=== PATIENT | male | born 1940 | race Hispanic/Latino ===

== ENCOUNTER 2018-01-22 14:45 | Inpatient (IN) | payer MEDICARE ==
[2018-01-22 15:09] VITALS: BMI 23.0
[2018-01-22] MEDS: Albuterol-Ipratrop 3 mg / 0.5 (3 ml) UD IH SCH ×3 (16:14→20:35)
--- NOTE | 2018-01-22 16:22 | RAD ---
Date of service: 01/22/2018 HISTORY: wheezing COMPARISON: 05/24/2017 FINDINGS: LUNGS: No active pulmonary disease. PLEURA: No significant pleural effusion identified, no pneumothorax apparent. CARDIOVASCULAR: Normal. OSSEOUS STRUCTURES: No significant abnormalities. VISUALIZED UPPER ABDOMEN: Normal. OTHER FINDINGS: None. IMPRESSION: No active disease.
--- NOTE | 2018-01-22 16:48 | ED PDOC ---
Arrival/HPI - General Chief Complaint: Shortness Of Breath Time Seen by Provider: 01/22/18 15:23 Historian: Patient - History of Present Illness Narrative History of Present Illness (Text): 01/22/18 16:48 78 yo M with PMH of chronic bronchitis due to h/o prior smoking presents c/o 2 week h/o dry cough, dyspnea and wheezing despite treatment with albuterol inhaler. He states that he has not had to ever use his inhaler until the past week. Symptoms are worse with exertion. He also adds that he noticed swelling to his lower legs, which is new and he has never had before. Otherwise : (-) h/ o CHF, (-) fever, (-) sputum production, (-) chest pain, (-) diaphoresis, (-) pleuritic component, (-) ripping or tearing quality, (-) positional component, ( -) dizziness, (-) syncope, (-) nausea, (-) vomiting, (-) calf swelling/pain, (- ) recent hospitalization, (-) recent surgery, (-) neuro deficits. PMD Isael Juares Past Medical History - Cardiac Hx Pacemaker: No - Neurological Hx Paralysis: No - Hematological/Oncological Hx Blood Transfusions: No Hx Blood Transfusion Reaction: No - Musculoskeletal/Rheumatological Hx Musculoskeletal Disorders: Yes - Psychiatric Hx Emotional Abuse: No Hx Physical Abuse: No Hx Substance Use: No - Anesthesia Hx Anesthesia Reactions: No Hx Malignant Hyperthermia: No Family/Social History Family/Social History: No Known Family HX Smoking Status: Never Smoked Hx Alcohol Use: No Hx Substance Use: No Allergies/Home Meds Allergies/Adverse Reactions: Allergies erythromycin base Allergy (Verified 01/12/16 07:14) FEVER Home Medications: Home Meds Medication Instructions Recorded Confirmed Alprazolam [Xanax] 0.25 mg PO PRN PRN 01/10/16 01/12/16 Aspirin [Ecotrin] 81 mg PO DAILY 01/10/16 01/10/16 Celecoxib [CeleBREX] 200 mg PO BID 01/10/16 01/12/16 Cholecalciferol (Vitamin D3) 5,000 iu PO DAILY 01/10/16 01/12/16 [D3-5000 90 mg-5000 Iu] Escitalopram [Lexapro] 20 mg PO DAILY 01/10/16 01/12/16 Esomeprazole Magnesium [Nexium] 40 mg PO DAILY 01/10/16 01/12/16 Gabapentin [Neurontin] 600 mg PO TID 01/10/16 01/12/16 Levothyroxine [Synthroid] 25 mcg PO QAM 01/10/16 01/12/16 Metoprolol Succinate 25 mg PO DAILY 01/10/16 01/12/16 [place]-3 Acid Ethyl Esters [Lovaza] 1 gm PO BID 01/10/16 01/12/16 Oxycodone HCl [Oxycodone HCl ER] 40 mg PO BID PRN 01/10/16 01/12/16 Oxycodone HCl [Oxycontin] 10 mg PO PRN PRN 01/10/16 01/10/16 Simvastatin 10 mg PO DAILY 01/10/16 01/12/16 oxyCODONE [oxyCODONE Immediate 5 mg PO BID PRN 01/10/16 01/12/16 Release Tab] Review of Systems - Review of Systems Constitutional: absent: Fatigue, Fevers Respiratory: SOB, Cough, Wheezing Cardiovascular: absent: Chest Pain, Palpitations Gastrointestinal: absent: Abdominal Pain, Diarrhea, Vomiting Genitourinary Male: absent: Dysuria, Frequency, Hematuria Musculoskeletal: Other (+b/l LE edema). absent: Arthralgias, Back Pain, Neck Pain Skin: absent: Rash, Pruritis, Skin Lesions Neurological: absent: Headache, Dizziness Physical Exam Vital Signs Temp Pulse Resp BP Pulse Ox 01/22/18 18:40 98.8 F 70 19 131/74 99 01/22/18 15:11 19 97 01/22/18 15:09 98.7 F 68 18 135/83 96 Temperature: Afebrile Blood Pressure: Normal Pulse: Regular Respiratory Rate: Normal Appearance: Positive for: Well-Appearing, Non-Toxic, Comfortable Pain Distress: None Mental Status: Positive for: Alert and Oriented X 3 - Systems Exam Head: Present: Atraumatic, Normocephalic Pupils: Present: PERRL Extroacular Muscles: Present: EOMI Conjunctiva: Present: Normal Mouth: Present: Moist Mucous Membranes Neck: Present: Normal Range of Motion Respiratory/Chest: Present: Good Air Exchange, Wheezes (+b/l faint expiratory wheeze), Decreased Breath Sounds, Rhonchi (+rhonchi RLL). No: Respiratory Distress, Accessory Muscle Use, Rales Cardiovascular: Present: Regular Rate and Rhythm, Normal S1, S2. No: Murmurs Abdomen: No: Tenderness, Distention, Peritoneal Signs Back: Present: Normal Inspection. No: CVA Tenderness, Midline Tenderness Upper Extremity: Present: Normal Inspection, Normal ROM, NORMAL PULSES. No: Cyanosis, Edema Lower Extremity: Present: Normal Inspection, NORMAL PULSES, Normal ROM, Swelling (+1+ pitting edema), Neurovascularly Intact, Capillary Refill < 2 s. No: Edema, Tenderness, Temperature Abnormalties Neurological: Present: GCS=15, CN II-XII Intact, Speech Normal, Motor Func Grossly Intact, Normal Sensory Function, Gait Normal Skin: Present: Warm, Dry, Normal Color. No: Rashes Psychiatric: Present: Alert, Oriented x 3, Normal Insight, Normal Concentration Medical Decision Making ED Course and Treatment: 01/22/18 16:45 Plan: -- Labs -- IV fluids -- Urinalysis -- EKG -- CXR -- Duonebs x2 -- Solumedrol IV -- Reassess and disposition EKG : SB at 67 bpm, 1st degree AVB, (-) acute ST changes, as read by PA. CXR : NAD, as read by radiologist Labs reviewed : wbc normal, trop (-), bnp (-). On reevaluation, patient reports improvement of symptoms, however still c/o congestion to his chest, denies any chest pain, SOB. On exam, patient remains awake alert and oriented 3 in no acute distress. Neck is supple, lungs + decrease in BS, no wheezing, +rhonchi at the bases, cardiac regular rate and rhythm, repeat neuro exam shows no focal findings. VS P 66 O2sat : 91-96 %RA, patient desaturates to 91%RA at times and normalizes spontaneously. Diagnostic results d/w the patient. Dx of clinical pneumonia vs acute bronchitis on top of chronic bronchitis d/w the patient. Zithromax 500 mg IV and rocephin 1 g IV ordered. Considering that bnp was nl and patient has LE pitting edema, despite being active and independent at home, US dopplers b/l LE ordered. 2nd repeat troponin ordered. Case d/w Dr. Amanda agrees with plan for observation for clinical pneumonia and COPD exacerbation. Patient is requesting for his evening dose of pain medication, which he takes for chronic back pain BID at 5pm and 5 am, oxycodone 40mg ER and oxycodone 5 mg IR. Both medications ordered for the patient. US doppler b/l LE : (-) DVT, as read by PA - Lab Interpretations Lab Results: 01/22/18 16:35 01/22/18 16:35 Lab Results 01/22/18 16:35: Sodium 138, Potassium 5.0, Chloride 105, Carbon Dioxide 26, Anion Gap 12, BUN 25 H, Creatinine 1.5, Est GFR ( Amer) 55, Est GFR (Non- Af Amer) 46, Random Glucose 101, Calcium 8.7, Magnesium 2.0, Total Bilirubin 0.8 , AST 31, ALT 9, Alkaline Phosphatase 64, Lactate Dehydrogenase 443, Total Creatine Kinase 51, Troponin I < 0.01, NT-Pro-B Natriuret Pep 275, Total Protein 7.5, Albumin 4.0, Globulin 3.4, Albumin/Globulin Ratio 1.2 01/22/18 16:35: WBC 4.3 L, RBC 3.49 L, Hgb 11.3 L, Hct 33.5 L, MCV 96.0, MCH 32.4, MCHC 33.7, RDW 12.8, Plt Count 138, MPV 9.0, Gran % 47.4 L, Lymph % (Auto ) 30.4, [place] % (Auto) 8.5 H, Eos % (Auto) 13.2 H, Baso % (Auto) 0.5, Gran # 2.02 , Lymph # (Auto) 1.3, [place] # (Auto) 0.4, Eos # (Auto) 0.6, Baso # (Auto) 0.02 - RAD Interpretation Radiology Orders: 01/22/18 15:43 CHEST PORTABLE [RAD] Stat 01/22/18 17:44 DUPLEX LOWER EXTRM VEIN BILAT [US] Stat 01/22/18 19:10 CHEST W/O CONTRAST [CT] Stat - Medication Orders Current Medication Orders: Acetaminophen (Tylenol 325mg Tab) 650 mg PO Q6H PRN PRN Reason: Fever >100.4 F Albuterol/Ipratropium (Duoneb 3 Mg/0.5 Mg (3 Ml) Ud) 3 ml IH [id number] JOSÉ LUIS Albuterol/Ipratropium (Duoneb 3 Mg/0.5 Mg (3 Ml) Ud) 3 ml IH Q2H PRN PRN Reason: Shortness of Breath Alprazolam (Xanax) 0.25 mg PO BID JOSÉ LUIS PRN Reason: Protocol Stop: 01/29/18 19:16 Aspirin (Ecotrin) 81 mg PO DAILY [facility] Atorvastatin Calcium (Lipitor) 10 mg PO HS JOSÉ LUIS Escitalopram Oxalate (Lexapro) 20 mg PO DAILY JOSÉ LUIS Gabapentin (Neurontin) 600 mg PO TID JOSÉ LUIS PRN Reason: Protocol Last Admin: 01/22/18 20:01 Dose: 600 mg Ceftriaxone Sodium (Rocephin 1 Gram Ivpb) 1 gm in 100 mls @ 100 mls/hr IVPB DAILY JOSÉ LUIS PRN Reason: Protocol Azithromycin (Zithromax 500mg In Ns) 500 mg in 250 mls @ 167 mls/hr IVPB DAILY JOSÉ LUIS PRN Reason: Protocol Levothyroxine Sodium (Synthroid) 25 mcg PO ACB [facility] Methylprednisolone (Solu-Medrol) 40 mg IV Q8 [facility] Metoprolol Succinate (Toprol Xl) 25 mg PO BRK [facility] Ondansetron HCl (Zofran Inj) 4 mg IVP Q6H PRN PRN Reason: Nausea/Vomiting Oxycodone HCl (Oxycontin Extended Release Tab) 40 mg PO BID PRN PRN Reason: Pain, moderate (4-7) Oxycodone HCl (Oxycodone Immediate Release Tab) 5 mg PO BID PRN PRN Reason: Pain, severe (8-10) Pantoprazole Sodium (Protonix Ec Tab) 40 mg PO 0630 [facility] Discontinued Medications Albuterol/Ipratropium (Duoneb 3 Mg/0.5 Mg (3 Ml) Ud) 3 ml IH Q15M [facility] Stop: 01/22/18 16:16 Last Admin: 01/22/18 16:39 Dose: 3 ml Ceftriaxone Sodium (Rocephin 1 Gram Ivpb) 1 gm in 100 mls @ 200 mls/hr IVPB STAT STA PRN Reason: Protocol Stop: 01/22/18 18:09 Last Admin: 01/22/18 18:10 Dose: 200 mls/hr eMAR Start Stop Document 01/22/18 18:10 [email or web address] (Rec: 01/22/18 18:12 [email or web address] [id number]) Intravenous Solution Start Date 01/22/18 Start Time 18:12 Azithromycin (Zithromax 500mg In Ns) 500 mg in 250 mls @ 167 mls/hr IVPB STAT STA PRN Reason: Protocol Stop: 01/22/18 19:09 Last Admin: 01/22/18 20:01 Dose: 167 mls/hr eMAR Start Stop Document 01/22/18 20:01 RG (Rec: 01/22/18 20:01 RG [id number]) Intravenous Solution Start Date 01/22/18 Start Time 20:01 Methylprednisolone (Solu-Medrol) 125 mg IVP STAT STA Stop: 01/22/18 15:54 Last Admin: 01/22/18 16:39 Dose: 125 mg IVP Administration Document 01/22/18 16:39 [email or web address] (Rec: 01/22/18 16:39 [email or web address] [id number]) Charges for Administration # of IVP Administrations 1 Oxycodone HCl (Oxycodone Immediate Release Tab) 5 mg PO STAT STA Stop: 01/22/18 17:53 Last Admin: 01/22/18 18:12 Dose: 5 mg MAR Pain Assessment Document 01/22/18 18:12 [email or web address] (Rec: 01/22/18 18:13 [email or web address] [id number]) Pain Reassessment Is this a pain reassessment? No Sleep Is patient sleeping during reassessment? No Presence of Pain Presence of Pain Yes Pain Scale Used Pain Scale Used Numeric Location Pain Location Body Site Back Description Description Constant Intensity of Pain at present 7 Pain Behavior Facial Grimacing Aggravating Factors Changing Position Alleviating Factors/Management Medication Techniques Alleviating Factors Medication Oxycodone HCl (Oxycontin Extended Release Tab) 40 mg PO STAT STA Stop: 01/22/18 17:53 Last Admin: 01/22/18 18:12 Dose: 40 mg MAR Pain Assessment Document 01/22/18 18:12 [email or web address] (Rec: 01/22/18 18:13 [email or web address] [id number]) Pain Reassessment Is this a pain reassessment? No Sleep Is patient sleeping during reassessment? No Presence of Pain Presence of Pain Yes Pain Scale Used Pain Scale Used Numeric Location Pain Location Body Site Back Description Description Constant Intensity of Pain at present 7 Pain Behavior Facial Grimacing Aggravating Factors Changing Position Alleviating Factors/Management Medication Techniques Alleviating Factors Medication - PA / CONTROL OFFICER / Resident Statement / has reviewed & agrees with the documentation as recorded. Disposition/Present on Arrival - Present on Arrival Any Indicators Present on Arrival: No History of DVT/PE: No History of Uncontrolled Diabetes: No Urinary Catheter: No History of Decub. Ulcer: No History Surgical Site Infection Following: None - Disposition Have Diagnosis and Disposition been Completed?: Yes Diagnosis: COPD exacerbation, Pneumonia, Lower extremity edema Disposition: HOSPITALIZED Disposition Time: 17:30 Patient Plan: Observation Patient Problems: Current Active Problems Problem Status Onset COPD exacerbation Acute Pneumonia Acute Condition: STABLE Referrals: Rosa Isela Kirkland DO [Primary Care Provider] - Follow up with primary Forms: [employer] (Hungarian)
[2018-01-22 16:54] LABS: ALB/GLOB RATIO 1.2 (1.1-1.8); ALT/SGPT 9 U/L (7-56); AST/SGOT 31 U/L (17-59); BLOOD UREA NITROGEN 25 mg/dL (7-21); CALCIUM 8.7 mg/dL (8.4-10.5); GFR NON-AFRICAN AMERICAN 46
[2018-01-22 17:01] LABS: BASO # 0.02 K/mm3 (0.0-2.0); BASO % 0.5 % (0.0-3.0); EOS # 0.6 (0.0-0.7); EOS % 13.2 % (1.5-5.0); GRAN # 2.02 (1.4-6.5); GRAN % 47.4 % (50.0-68.0); HEMOGLOBIN 11.3 g/dL (14.0-18.0); LYMPH # 1.3 (1.2-3.4); LYMPH % 30.4 % (22.0-35.0); MEAN CORPUSCULAR HEMOGLOBIN 32.4 pg (25.0-35.0); MEAN CORPUSCULAR HGB CONC 33.7 g/dl (31.0-37.0); MONO # 0.4 (0.1-0.6); MONO % 8.5 % (1.0-6.0); RBC 3.49 10^6/uL (3.5-6.1); RED CELL DISTRIBUTION WIDTH 12.8 % (11.5-14.5); WHITE BLOOD COUNT 4.3 10^3/ul (4.5-11.0)
[2018-01-22 17:06] LABS: B-TYPE NATRIURETIC PEPTIDE 275 pg/mL (0-450); TROPONIN I < 0.01 ng/mL
[2018-01-22] MEDS ORDERED: Azithromycin 500MG/NS 250ml 500 MG/250 ML BAG IVPB STA (17:40)
[2018-01-22] MEDS ORDERED: cefTRIAXone 1 gm 1 GM/100 ML BAG IVPB STA (17:40)
[2018-01-22] MEDS ORDERED: oxyCODONE 5 mg Immediate Release Tab PO STA (17:52)
[2018-01-22] MEDS ORDERED: oxyCODONE 20 mg ER Tab (oxyCONTIN) PO STA (17:52)
[2018-01-22] MEDS ORDERED: Albuterol-Ipratrop 3 mg / 0.5 (3 ml) UD IH PRN (19:04)
[2018-01-22] MEDS ORDERED: oxyCODONE 5 mg Immediate Release Tab PO PRN (19:07)
--- NOTE | 2018-01-22 20:27 | CARD ---
APPROVED REPORT Date of service: 01/22/2018 EKG Measurement Heart [id number] <Conclusion> Sinus rhythm with 1st degree AV block with premature atrial complexes Otherwise normal ECG
[2018-01-22] MEDS: MethylPREDNISolone 40 mg Vial IV SCH (22:30)
[2018-01-23] MEDS: Albuterol-Ipratrop 3 mg / 0.5 (3 ml) UD IH SCH ×4 (01:20→20:09)
--- NOTE | 2018-01-23 01:27 | HP ---
HISTORY OF PRESENT ILLNESS: The patient is 78 years old patient of , was brought in by daughter because of increasing cough, congestion and shortness of breath, get short of breath on walking. Denies any chest pain. Complain of some wheezing and shortness of breath intermittently for 2 weeks, has been using his inhaler more than usual. No fever or chills. No hemoptysis, no hematemesis. His shortness of breath get worse on exertion. He also complained of having bilateral leg swelling. No abdominal pain. No nausea, no vomiting, no diarrhea. He does have chronic back pain and history of lung nodule. ALLERGIES: ALLERGIC TO ERYTHROMYCIN. PAST MEDICAL HISTORY: Significant for: 1. Hypertension. 2. Peptic ulcer disease. 3. Anxiety disorder. 4. Hyperlipidemia. MEDICATIONS AT HOME: He is on oxycodone 5 mg twice a day, simvastatin 10 mg daily, OxyContin 10 mg three times a day, extended-release oxycodone 40 mg daily, metoprolol 25 mg daily, levothyroxine 25 mcg daily, gabapentin 600 three times a day, omeprazole 40 mg daily, Lexapro 20 mg daily, Celebrex 200 twice a day, aspirin 81 daily and Xanax 0.25 twice a day. SOCIAL HISTORY: Lives with his daughter. History of smoking in the remote past, but quit 30 years ago. PHYSICAL EXAMINATION GENERAL: He is awake, alert and oriented, mild shortness of breath. VITAL SIGNS: He is afebrile, pulse 70, respirations 19, blood pressure 131/74. LUNGS: Bilateral few expiratory rhonchi, more at bases. HEART: S1 and S2 audible. ABDOMEN: Soft, nontender. No rebound. No guarding. NEUROLOGIC: The patient is awake, alert, oriented, communicative. LABORATORY EXAM: WBC is 4.3, hemoglobin 11.3, hematocrit 33.5, platelets of 138. Chemistry: Sodium 138, potassium 5, chloride 105, CO2 26, BUN 25, creatinine 1.5, blood sugar of 101. LFTs are within normal limits. X-ray of chest seems to be unremarkable. ASSESSMENT: 1. Active smoker with asthmatic bronchitis. 2. Bronchospasm. 3. Rule out underlying pneumonia. 4. Chronic back pain. 5. Hypertension. 6. Hyperlipidemia. PLAN: The patient will be placed in observation. We will give him IV steroids and nebulizer treatment. I will order for CT scan of the chest. I will order echocardiogram. We will follow up the patient in the a.m. Gio Amanda MD
[2018-01-23] MEDS: MethylPREDNISolone 40 mg Vial IV SCH (05:23)
[2018-01-23] MEDS: oxyCODONE 20 mg ER Tab (oxyCONTIN) PO PRN ×2 (05:24→17:37)
[2018-01-23] MEDS: Pantoprazole 40 mg EC Tab PO SCH ×2 (05:24→06:10)
[2018-01-23 07:30] LABS: ALB/GLOB RATIO 1.2 (1.1-1.8); ALBUMIN 4.1 g/dL (3.0-4.8); ALT/SGPT 8 U/L (7-56); AST/SGOT 27 U/L (17-59); BLOOD UREA NITROGEN 23 mg/dL (7-21); CALCIUM 8.7 mg/dL (8.4-10.5); GFR NON-AFRICAN AMERICAN 59
[2018-01-23 07:40] LABS: FREE T4 1.18 ng/dL (0.78-2.19)
[2018-01-23] MEDS: Metoprolol Succinate 25 mg XL Tab PO SCH (08:07)
[2018-01-23] MEDS: Budesonide 0.5 mg/2 ml Inhal Susp UD IH SCH ×2 (08:07→20:09)
[2018-01-23] MEDS: Levothyroxine 25 MCG TAB PO SCH (08:08)
--- NOTE | 2018-01-23 08:11 | CON ---
DATE: 01/23/2018 PULMONARY CONSULTATION REASON FOR PULMONARY CONSULTATION: Chronic obstructive pulmonary disease. REFERRING PHYSICIAN: Gio Amanda MD. HISTORY OF PRESENT ILLNESS: The patient is a 78-year-old male, with past medical history significant for chronic obstructive pulmonary disease, hypertension, anxiety disorder, who presents to [facility] with main complaints of increasing cough and congestion for the past 2 weeks. There is no history of shortness of breath at rest. There is a history of mild dyspnea on exertion for the past 2 weeks. There is no history of significant sputum production. There is no history of chest pain, coughing up of blood, or chest pain - made worse with deep respirations. There is no history of temperatures, chills, or infectious exposure. There is no history of night sweats, weight loss, or appetite change prior to the above events. No history of leg or calf pains. No history of syncope or diaphoresis. No history of recent travel or trauma. REVIEW OF SYSTEMS: No history of nausea, vomiting, or diarrhea. No acute urinary symptoms. No new neurologic or musculoskeletal complaints. Rest of the review of systems is negative. ALLERGIES: ERYTHROMYCIN. SOCIAL HISTORY: Positive for tobacco and negative for alcohol. FAMILY HISTORY: No inheritable diseases. HOME MEDICATIONS: Include oxycodone, metoprolol, Synthroid, Neurontin, Nexium, Lexapro, Celebrex, Ecotrin, and Xanax. PHYSICAL EXAMINATION: GENERAL: The patient appears comfortable this morning. He is not short of breath at rest. He is not using accessory muscles for breathing. VITAL SIGNS: Temperature is 98.2, pulse 82, respirations 18, blood pressure 132/84. Oxygen saturation on nasal cannula is 96%. HEENT: Normocephalic, atraumatic. No JVD. CARDIOVASCULAR: Positive S1, S2. No S3 gallop. LUNGS: Decreased breath sounds at the bases. Mild bilateral rhonchi. A few wheezes are also appreciated. EXTREMITIES: No clubbing, cyanosis, or edema. Calves are nontender to palpation. GASTROINTESTINAL: Abdomen is soft, nontender, and nondistended. Bowel sounds are positive. SKIN: No acute rash. NEUROLOGIC: Limited at the present time. PERTINENT LABORATORY DATA: CAT scan of the chest was done and reviewed. Official results are pending. There is mild scarring in the posterior aspects of both apices. There are also some small, bilateral pulmonary nodules-- the largest of which is in the right lower lobe (9 mm). There are no acute infiltrates noted. Complete metabolic profile: BUN 25. Rest of the metabolic profile is within normal limits. CBC: White count 4.3K, hemoglobin 11.3, hematocrit 33.5, platelets of 138,000. IMPRESSION: 1. Acute bronchitis. 2. Chronic obstructive pulmonary disease. 3. Bilateral pulmonary nodules. 4. Mild anemia. PLAN: The patient presents to [facility] with a 2-week history of increasing cough and congestion. The patient also states to mild dyspnea on exertion for the past 2 weeks. He was thus admitted for additional evaluation. I did review the CAT scan of the chest. As above, there are some small bilateral pulmonary nodules noted - the largest of which is in the right lower lobe (9 mm). I did discuss the CAT scan findings with the patient at length. The patient is well aware that he will need to follow up with me in the office - regarding these pulmonary nodules. On physical exam, the patient appears to be in mild bronchospasm. I will try decreasing the intravenous steroids this morning, as well as adding inhaled steroids. There is no significant alveolar-arterial gradient. Oxygen saturation on nasal cannula is 96%. The patient remains on antibiotic therapy. There are no temperatures noted. There is no leukocytosis. The patient does state to feeling much better this morning, and is clinically improved. Additional pulmonary intervention will be based on the clinical status of the patient. I will discuss the above with the attending physician. Thank you very much for this pulmonary consultation. Luis Antonio Juares MD [facility]
[2018-01-23] MEDS ORDERED: MethylPREDNISolone 40 mg Vial IVP SCH (10:00)
--- NOTE | 2018-01-23 10:07 | CT ---
Date of service: 01/22/2018 PROCEDURE: CT Chest without contrast HISTORY: Breathing problem, shortness of breath COMPARISON: Single-view chestSeptember 2017. CT thorax 02/11/2013 TECHNIQUE: Contiguous axial images were obtained through the chest without intravenous contrast enhancement. Sagittal and coronal reconstructions were performed. Radiation dose (DLP): 373.87 mGy-cm. This CT exam was performed using one or more of the following dose reduction techniques: Automated exposure control, adjustment of the mA and/or kV according to patient size, and/or use of iterative reconstruction technique. FINDINGS: LUNGS: Stable 8 mm pulmonary nodule lateral segment right lower lobe. There has been no interval change compared to the prior CT scan 02/11/2013. Stable biapical scarring and pleural thickening. Mild parabronchial thickening consistent with lower airway disease, bronchitis. MEDIASTINUM: Unremarkable thoracic aorta. No aneurysm. Normal sized heart. Main pulmonary artery unremarkable. No vascular congestion. No lymphadenopathy. PLEURA: No pleural fluid. No pneumothorax. BONES: No fracture. No destructive lesion. UPPER ABDOMEN: Grossly unremarkable. OTHER FINDINGS: None. IMPRESSION: No significant or acute findings to account for/ related to the clinical presentation. No significant interval change compared to the prior examination(s).The 8 mm pulmonary nodule identified in the right lower lobe was seen on the prior CT scan 02/11/2013. Concordant results (preliminary interpretation) provided by [facility]. Procedure Completed: 21:14. Preliminary ([facility]) Report: Dictated and Authenticated: 21:57. Final Interpretation: 10:05. January 23, 2018.
[2018-01-23] MEDS: cefTRIAXone 1 gm 1 GM/100 ML BAG IVPB SCH (10:14)
[2018-01-23] MEDS: Azithromycin 500MG/NS 250ml 500 MG/250 ML BAG IVPB SCH (11:21)
[2018-01-23] MEDS ORDERED: oxyCODONE 5 mg Immediate Release Tab PO PRN (12:46)
--- NOTE | 2018-01-23 16:33 | US ---
HISTORY: Leg pain and swelling. Evaluate for DVT PHYSICIAN(S): Pito Morales MD. TECHNIQUE: Duplex sonography and color-flow Doppler with graded compression were used to evaluate the deep venous systems of both lower extremities. FINDINGS: The visualized deep venous systems of both lower extremities are sonographically normal and compressible. Normal wave forms and augmentation are seen. There is no sonographic evidence for deep venous thrombosis in the visualized segments of both lower extremities. IMPRESSION: No sonographic evidence for deep venous thrombosis in the visualized segments of both lower extremities.
[2018-01-23] MEDS: MethylPREDNISolone 40 mg Vial IVP SCH (17:38)
--- NOTE | 2018-01-23 18:25 | PN ---
DATE: 01/23/2018 SUBJECTIVE: The patient is 78 years old, seen and examined, doing well, feels a little better, still gets short of breath on walking. No diaphoresis. No chest pain. PHYSICAL EXAMINATION: VITAL SIGNS: He is afebrile, pulse 76, respirations 20, blood pressure 164/85. LUNGS: Bilateral few expiratory rhonchi, more posteriorly. HEART: S1 and S2 audible. ABDOMEN: Soft, nontender. No rebound. No guarding. NEUROLOGIC: He is awake, alert, oriented, communicative. Moves all extremities. Complained of intractable back pain. LABORATORY DATA: His sodium 137, potassium 4.8, chloride 103, CO2 of 23, BUN 23, creatinine 1.2, blood sugar of 165. LFTs are within normal limits. TSH is 1.5, T4 of 1.18. CT scan of the chest is negative for pneumonia. He has 8 mm pulmonary nodule in the right lower lobe. ASSESSMENT: 1. Chronic obstructive pulmonary disease exacerbation. 2. Exertional shortness of breath, rule out underlying coronary ischemia. He has a history of heavy smoking for a couple of years. 3. Hypertension. 4. Intractable back pain. PLAN: I will re-adjust his pain medication. His steroid has been tapered down. We will reevaluate in the a.m. If the patient remains stable, possible discharge in the a.m. on oral steroid and antibiotic and he needs to be evaluated by remote advisor, request for Dr. Cox's evaluation has been entered. Gio Amanda MD
--- NOTE | 2018-01-23 19:37 | CARD ---
APPROVED REPORT Date of service: 01/23/2018 EXAM: Two-dimensional and M-mode echocardiogram with Doppler and color Doppler. INDICATION Dizziness and Vertigo 2D DIMENSIONS Left Atrium (2D)4.8 (1.6-4.0cm)IVSd1.0 (0.7-1.1cm) LVDd4.8 (3.9-5.9cm)PWd1.2 (0.7-1.1cm) LVDs3.2 (2.5-4.0cm)FS (%) 34.0 % LVEF (%)62.9 (>50%) M-Mode DIMENSIONS Aortic Root3.60 (2.2-3.7cm)Aortic Cusp Exc.1.60 (1.5-2.0cm) Aortic Valve AoV Peak Tgwcogup961.0cm/sAoV VTI43.9cmAO Peak GR.13mmHg LVOT Peak Lfjrmueh343.0cm/sLVOT VTI34.40cmAO Mean GR.8mmHg Mitral Valve MV E Nmtptpbv803.0cm/sMV A Jtnnbayn49.8cm/sE/A ratio1.2 TDI Lateral E' Peak V9.36cm/sMedial E' Peak V7.31cm/sE/Lateral E'11.4 E/Medial E'14.6 Pulmonary Valve PV Peak Lhnrzcbm13.9cm/sPV Peak Grad.3mmHg Tricuspid Valve TR Peak Daerdnvp711wy/sRAP GRUVMGJM14cnMbDR Peak Gr.19mmHg BALB85smQv LEFT VENTRICLE The left ventricle is normal size. There is borderline concentric left ventricular hypertrophy. Normal LV Systolic Function. Ej.Fr: 62%. RIGHT VENTRICLE The right ventricle is normal size. The right ventricular systolic function is normal. ATRIA The left atrium is moderately dilated. The right atrium size is normal. AORTIC VALVE Aortic Valve thickened due to Calcification. Opening Normal. MITRAL VALVE Mitral Valve Leaflets Thicken ed due to Calcification. Opening Normal Mitral Annulus is Calcified. Mitral regurgitation is trace. TRICUSPID VALVE The tricuspid valve is normal in structure. There is trace tricuspid regurgitation. PERICARDIAL EFFUSION There is no pericardial effusion. <Conclusion> The left ventricle is normal size. There is borderline concentric left ventricular hypertrophy. Normal LV Systolic Function. Ej.Fr: 62%. The right ventricle is normal size. The right ventricular systolic function is normal. The left atrium is moderately dilated. The right atrium size is normal. Aortic Valve thickened due to Calcification. Opening Normal. Mitral Valve Leaflets Thicken ed due to Calcification. Opening Normal Trace Mitral Regurge. Mitral Annulus is Calcified. The tricuspid valve is normal in structure. There is trace tricuspid regurgitation. RVSP 29mm Hg. There is no pericardial effusion.
[2018-01-24] MEDS: Albuterol-Ipratrop 3 mg / 0.5 (3 ml) UD IH SCH ×3 (01:40→13:20)
--- NOTE | 2018-01-24 03:37 | CON ---
DATE: 01/23/2018 SERVICE: CARDIOLOGY REASON FOR THE CONSULTATION: Shortness of breath, cardiac evaluation. BRIEF CLINICAL HISTORY: This is a 78-year-old male, with past medical history significant for back pain, arthritis, COPD, asthma, bronchitis, used to follow ____, came in with complaint of wheezing, 2 weeks of getting short of breath. Denies any history of coronary artery disease, denies any chest pain, denies any palpitations. PAST MEDICAL HISTORY: Significant for hypertension, peptic ulcer disease, anxiety disorder, back pain, and hyperlipidemia. PAST SURGICAL HISTORY: Significant for back surgery 20 to 25 years ago, used to walk with a cane. CURRENT MEDICATIONS: The patient is taking oxycodone 5 mg b.i.d., simvastatin 10 mg daily, OxyContin 10 mg p.r.n., and extended-release 40 mg twice a day, metoprolol succinate 25 mg daily, levothyroxine 25 mcg daily, gabapentin 600 mg p.o. three times a day, aspirin and Xanax. REVIEW OF SYSTEMS: As per HPI. PHYSICAL EXAMINATION VITAL SIGNS: As follows, height of the patient 6 feet 3 inches, weight of the patient 193 pounds, body mass index 28 kg/m2. Temperature afebrile, heart rate 76, blood pressure 164/85. HEENT: PERRLA. Extraocular muscles intact. NECK: Supple. No carotid bruit or thyromegaly. CHEST: Clear to auscultation. HEART: S1 and S2, regular. ABDOMEN: Soft. EXTREMITIES: Clubbing and cyanosis negative. LABORATORY DATA: Blood workup as follows: WBC 4.3, hemoglobin 11.3, hematocrit 335, and platelet count 138. Chemistry shows sodium 137, potassium 4.8, chloride 106, carbon dioxide 23, anion gap of 16, BUN 23, creatinine 1.2. Troponin 0.01. EKG shows normal sinus, no acute ST-T changes noted, first-degree AV block. IMPRESSION: Acute exacerbation of chronic obstructive pulmonary disease, diabetes, hypertension, hyperlipidemia, obesity, possible chronic obstructive pulmonary disease, anxiety disorder, is on multiple pain medication, history of chronic back pain, history of multiple surgeries in the back. Recommended to get echo to assess left ventricular function, for risk stratification suggest a stress test as an outpatient. So far no evidence of acute myocardial infarction, we will follow with you. Thank you, Dr. Amanda/ ____, for providing us the opportunity in taking care of the patient, Spencer Scales. We will get lipid profile, hemoglobin A1c as well in the morning. We will follow with you. Raghu Wilde MD
[2018-01-24] MEDS: Pantoprazole 40 mg EC Tab PO SCH (05:43)
[2018-01-24] MEDS: MethylPREDNISolone 40 mg Vial IVP SCH (05:43)
[2018-01-24] MEDS: oxyCODONE 20 mg ER Tab (oxyCONTIN) PO PRN (05:43)
[2018-01-24 07:22] LABS: GRAN # 3.4 (1.4-6.5); GRAN % 62.1 % (50.0-68.0); HEMOGLOBIN 10.9 g/dL (14.0-18.0); LYMPH # 1.5 (1.2-3.4); LYMPH % 28.2 % (22.0-35.0); MEAN CORPUSCULAR HEMOGLOBIN 32.2 pg (25.0-35.0); MEAN PLATELET VOLUME 9.1 fl (7.0-11.0); MONO # 0.5 (0.1-0.6); MONO % 9.7 % (1.0-6.0); RBC 3.38 10^6/uL (3.5-6.1); RED CELL DISTRIBUTION WIDTH 12.7 % (11.5-14.5); WHITE BLOOD COUNT 5.5 10^3/ul (4.5-11.0)
[2018-01-24 07:27] LABS: ALB/GLOB RATIO 1.1 (1.1-1.8); ALT/SGPT 10 U/L (7-56); AST/SGOT 35 U/L (17-59); BLOOD UREA NITROGEN 24 mg/dL (7-21); CALCIUM 8.7 mg/dL (8.4-10.5); GFR NON-AFRICAN AMERICAN > 60; HDL CHOLESTEROL 45 mg/dL (29-60)
--- NOTE | 2018-01-24 07:29 | PN ---
DATE: 01/24/2018 PULMONARY NOTE SUBJECTIVE: The patient appears comfortable this morning. He is not short of breath at rest. PHYSICAL EXAMINATION: VITAL SIGNS: (Last noted in the computer): Temperature is 98.2, pulse is 65, respirations 18/20, blood pressure 112/55. Oxygen saturation on nasal cannula is 98%. HEENT: Normocephalic, atraumatic. No JVD. CARDIOVASCULAR: Positive S1, S2. No S3 gallop. LUNGS: Improved breath sounds at the bases. Much less rhonchi. Much less wheezing. EXTREMITIES: No clubbing, cyanosis or edema. Calves are nontender to palpation. GI: Abdomen is soft, nontender, nondistended. Bowel sounds are positive. SKIN: No acute rash. NEUROLOGIC: Limited at the present time. IMPRESSION: 1. Acute bronchitis. 2. Chronic obstructive pulmonary disease. 3. Bilateral pulmonary nodules. 4. Mild anemia. PLAN: The patient appears comfortable this morning. He is not short of breath at rest. He does state to feeling much better overall. On physical exam, there is certainly less bronchospasm noted. In addition, the oxygen saturation on nasal cannula is now 98%. I will continue with the current nebulizer treatments and decrease the intravenous steroids this morning. The patient remains on antibiotic therapy. There are no temperatures noted. There is no leukocytosis. Input by Cardiology (Dr. Wilde) is also noted. Clinical status of the patient is certainly improved - compared to the initial presentation. The patient is advised to be out of bed as much as possible. I will discuss the above with the attending physician. Luis Antonio Juares MD [facility]
[2018-01-24 07:35] LABS: LDL CHOLESTEROL 93 mg/dL (0-129)
[2018-01-24] MEDS: Budesonide 0.5 mg/2 ml Inhal Susp UD IH SCH (07:46)
[2018-01-24 08:03] VITALS: TEMP 97.4; O2SAT 96
--- NOTE | 2018-01-24 08:36 | CP.PCM.PN ---
Subjective - Date & Time of Evaluation Date of Evaluation: 01/24/18 Time of Evaluation: 06:30 - Subjective Subjective: Awake,denies shortness of breath, no distress Reason for consultation and follow up: Cardiac evaluation of shortness of breath , history of bronchitis, current smoker Seen and examined by me and Dr. Wilde Objective - Vital Signs/Intake and Output Vital Signs (last 24 hours): Temp Pulse Resp BP Pulse Ox 97.4 F L 72 20 156/93 H 96 01/24/18 06:00 01/24/18 06:00 01/24/18 06:11 01/24/18 06:00 01/24/18 06:11 Intake and Output: 01/24/18 01/24/18 06:59 18:59 Intake Total 300 Output Total 350 Balance -50 - Medications Medications: Current Medications Acetaminophen (Tylenol 325mg Tab) 650 mg PO Q6H PRN PRN Reason: Fever >100.4 F Albuterol/Ipratropium (Duoneb 3 Mg/0.5 Mg (3 Ml) Ud) 3 ml IH [id number] [facility] Last Admin: 01/24/18 07:46 Dose: 3 ml Albuterol/Ipratropium (Duoneb 3 Mg/0.5 Mg (3 Ml) Ud) 3 ml IH Q2H PRN PRN Reason: Shortness of Breath Last Admin: 01/22/18 22:30 Dose: 3 ml Alprazolam (Xanax) 0.25 mg PO BID [facility] PRN Reason: Protocol Stop: 01/29/18 19:16 Last Admin: 01/23/18 18:42 Dose: 0.25 mg Aspirin (Ecotrin) 81 mg PO DAILY [facility] Last Admin: 01/23/18 10:13 Dose: 81 mg Atorvastatin Calcium (Lipitor) 10 mg PO HS [facility] Last Admin: 01/23/18 21:25 Dose: 10 mg Budesonide (Pulmicort Respules) 0.5 mg IH [id number] [facility] Last Admin: 01/24/18 07:46 Dose: 0.5 mg Escitalopram Oxalate (Lexapro) 20 mg PO DAILY [facility] Last Admin: 01/23/18 10:12 Dose: 20 mg Gabapentin (Neurontin) 600 mg PO TID [facility] PRN Reason: Protocol Last Admin: 01/23/18 18:41 Dose: 600 mg Ceftriaxone Sodium (Rocephin 1 Gram Ivpb) 1 gm in 100 mls @ 100 mls/hr IVPB DAILY [facility] PRN Reason: Protocol Last Admin: 01/23/18 10:14 Dose: 100 mls/hr Azithromycin (Zithromax 500mg In Ns) 500 mg in 250 mls @ 167 mls/hr IVPB DAILY [facility] PRN Reason: Protocol Last Admin: 01/23/18 11:21 Dose: 167 mls/hr Levothyroxine Sodium (Synthroid) 25 mcg PO ACB [facility] Last Admin: 01/23/18 08:08 Dose: 25 mcg Methylprednisolone (Solu-Medrol) 30 mg IVP Q12 [facility] Metoprolol Succinate (Toprol Xl) 25 mg PO BRK [facility] Last Admin: 01/23/18 08:07 Dose: 25 mg Ondansetron HCl (Zofran Inj) 4 mg IVP Q6H PRN PRN Reason: Nausea/Vomiting Oxycodone HCl (Oxycontin Extended Release Tab) 40 mg PO BID PRN PRN Reason: Pain, moderate (4-7) Last Admin: 01/24/18 05:43 Dose: 40 mg Oxycodone HCl (Oxycodone Immediate Release Tab) 5 mg PO Q6H PRN PRN Reason: Pain, severe (8-10) Last Admin: 01/23/18 21:25 Dose: 5 mg Pantoprazole Sodium (Protonix Ec Tab) 40 mg PO 0630 [facility] Last Admin: 01/24/18 05:43 Dose: 40 mg - Labs Labs: 01/24/18 06:30 01/24/18 06:30 - Constitutional Appears: No Acute Distress - Eye Exam Eye Exam: Normal appearance - ENT Exam ENT Exam: Mucous Membranes Moist - Respiratory Exam Respiratory Exam: Decreased Breath Sounds, NORMAL BREATHING PATTERN - Cardiovascular Exam Cardiovascular Exam: REGULAR RHYTHM, +S1, +S2 - GI/Abdominal Exam GI & Abdominal Exam: Soft, Normal Bowel Sounds - Extremities Exam Additional comments: 1+edema - Neurological Exam Neurological Exam: Alert, Awake, Oriented x3 - Psychiatric Exam Psychiatric exam: Normal Affect - Skin Skin Exam: Dry, Warm Assessment and Plan - Assessment and Plan (Free Text) Assessment: A 78 year old male who came in to the ER due to shortness of breath. History of COPD, bronhitis, asthma, arthritis,hypertension,diabetes, peptic ulcer disease, anxiety disorder,hyperlipidemia, back pain with back surgery 25 years ago. Exacerbation of COPD. Plan: ECHO done-LVEF 62%, Trace MR/TR Denies shortness of breath now Pulmonary on consult Cardiac status stable Controlled heart rate and blood pressure Troponin normal x 2 BNP normal No evidence of ischemia or heart failure Continue current treatment Continue current medications Out patient Stress test Will follow up Plan and treatment discussed with Dr. Wilde
[2018-01-24] MEDS: Metoprolol Succinate 25 mg XL Tab PO SCH (09:18)
[2018-01-24] MEDS: cefTRIAXone 1 gm 1 GM/100 ML BAG IVPB SCH (09:19)
[2018-01-24] MEDS: Azithromycin 500MG/NS 250ml 500 MG/250 ML BAG IVPB SCH (09:20)
[2018-01-24] MEDS: Levothyroxine 25 MCG TAB PO SCH (09:31)
[2018-01-24] MEDS ORDERED: MethylPREDNISolone 40 mg Vial IVP SCH (10:00)
[2018-01-24 11:59] VITALS: BP 147/89; PULSE 74; RESP 18
--- NOTE | 2018-01-24 15:05 | DS ---
HISTORY OF PRESENT ILLNESS: The patient is 78 years old, seen and examined, doing well. No chest pain. No shortness of breath. Cough is better. Shortness of breath is better. PHYSICAL EXAMINATION: VITAL SIGNS: The patient is afebrile, pulse 80, respirations 20, blood pressure 132/81. LUNGS: Bilateral fair airflow. No rhonchi or crackle. Diffusely decreased breath sound. HEART: S1 and S2 audible. ABDOMEN: Soft. Nontender. No rebound. No guarding. NEUROLOGICAL: The patient is awake and alert, able to communicate. LABORATORY EXAM: WBC is 5.5, hemoglobin 10.9, hematocrit 32.1, platelet of 140. Chemistry: Sodium 138, potassium 4.3, chloride 102, CO2 of 26, BUN 24, creatinine 1.1, blood sugar of 104. Thyroid profile is within normal limit. ASSESSMENT: 1. History of heavy smoking in the past. 2. Chronic obstructive pulmonary disease exacerbation. 3. Asthmatic bronchitis. 4. Chronic degenerative disk disease. 5. Anxiety disorder. 6. Hypothyroidism. PLAN: The patient is going to be discharged home today on Levaquin 500 daily. He will be given prednisone 20 mg twice a day for a week. He was given breathing treatment that is nebulizer every 6 hours Bromofed DM one teaspoon three times a day. He is advised to follow up with either me or with Dr. Waller for followup and he will have stress test done as outpatient with Dr. Cox. Gio Amanda MD
== END 2018-01-24 14:52 | disposition home or self-care (01) | DRG 192 ==
LOC: ED 14:45 → ERH 19:30 → 2RSO 23:42 → OBSVTOIN 01-23 12:44
PROVIDERS: ADMIT Internal Medicine; ATTEND Internal Medicine
PROC: 3E0F7GC Introduction of Other Therapeutic Substance into Respiratory Tract, Via Natural or Artificial Opening (ICD-10-PCS; principal; 2018-01-23)
DX: J44.1 Chronic obstructive pulmonary disease with (acute) exacerbation (principal); F17.200 Nicotine dependence, unspecified, uncomplicated; J20.9 Acute bronchitis, unspecified; J44.0 Chronic obstructive pulmonary disease with (acute) lower respiratory infection; I10 Essential (primary) hypertension; E78.5 Hyperlipidemia, unspecified; G89.29 Other chronic pain; M54.9 Dorsalgia, unspecified; E11.9 Type 2 diabetes mellitus without complications; D64.9 Anemia, unspecified; E03.9 Hypothyroidism, unspecified; F41.9 Anxiety disorder, unspecified; K27.9 Peptic ulcer, site unspecified, unspecified as acute or chronic, without hemorrhage or perforation

== ENCOUNTER 2018-08-17 17:30 | Inpatient (IN) | payer MEDICARE ==
[2018-08-17 17:32] VITALS: BMI 24.3
[2018-08-17 18:47] LABS: BASO # 0.01 K/mm3 (0.0-2.0); BASO % 0.1 % (0.0-3.0); EOS % 0.2 % (1.5-5.0); HEMOGLOBIN 11.7 g/dL (14.0-18.0); LYMPH # 0.8 (1.2-3.4); LYMPH % 4.6 % (22.0-35.0); MEAN CELL VOLUME 98.4 fl (80.0-105.0); MEAN CORPUSCULAR HEMOGLOBIN 32.1 pg (25.0-35.0); MEAN CORPUSCULAR HGB CONC 32.7 g/dl (31.0-37.0); MONO # 0.6 (0.1-0.6); MONO % 3.7 % (1.0-6.0); PLATELET COUNT 205 10^3/uL (120.0-450.0); RBC 3.64 10^6/uL (3.5-6.1); RED CELL DISTRIBUTION WIDTH 13.2 % (11.5-14.5); WHITE BLOOD COUNT 16.3 10^3/uL (4.5-11.0)
[2018-08-17] MEDS ORDERED: Albuterol-Ipratrop 3 mg / 0.5 (3 ml) UD IH STA (18:47)
--- NOTE | 2018-08-17 18:47 | ED PDOC ---
Arrival/HPI - General Chief Complaint: Weakness/Neurological Deficit Time Seen by Provider: 08/17/18 18:16 - History of Present Illness Narrative History of Present Illness (Text): 78 yr old male w/ hx of HTN, HLD, PNA, COPD not on home o2, thyroid issue and lumbar surgeries p/w fall, generalized weakness. Per daughter bedside, pt has had increased cough with phlegm over the past 2-3 days as well as generalized weakness. Pt was found by daugter this morning on the ground. Pt notes fall without any LOC, but with head impact and back impact. He denies being on any blood thinners. He notes that he has lost control of his bowels and urine, but is unclear if it was before or after the fall. He notes chronic back pain but states it is no worse than normal. He denies any loss of sensation in his legs. He denies any fever, chills or night sweats. No abdominal pain. No dark or bloody stool. No N/V. No chest pain or sob. No other complaints. Past Medical History - Infectious Disease Hx of Infectious Diseases: None - Cardiac Hx Cardiac Disorders: Yes Hx Hypertension: Yes Hx Pacemaker: No Hx Peripheral Edema: Yes - Pulmonary Hx Respiratory Disorders: Yes Hx Bronchitis: Yes Hx Chronic Obstructive Pulmonary Disease (COPD): Yes - Neurological Hx Neurological Disorder: No - HEENT Hx HEENT Disorder: Yes (reading glasses) - Renal Hx Renal Disorder: No - Endocrine/Metabolic Hx Endocrine Disorders: Yes Hx Hypothyroidism: Yes - Hematological/Oncological Hx Blood Disorders: No - Integumentary Hx Dermatological Disorder: No - Musculoskeletal/Rheumatological Hx Falls: Yes - Gastrointestinal Hx Gastrointestinal Disorders: Yes Hx Gastrointestinal Ulcer: Yes - Genitourinary/Gynecological Hx Genitourinary Disorders: No - Psychiatric Hx Psychophysiologic Disorder: No Hx Substance Use: No - Anesthesia Hx Anesthesia Reactions: No Hx Malignant Hyperthermia: No Family/Social History Family/Social History: Unknown Family HX Smoking Status: Former Smoker Hx Alcohol Use: No Hx Substance Use: No Allergies/Home Meds Allergies/Adverse Reactions: Allergies erythromycin base Allergy (Verified 08/17/18 17:32) FEVER Home Medications: Home Meds Medication Instructions Recorded Confirmed Alprazolam [Xanax] 0.25 mg PO PRN PRN 01/10/16 08/17/18 Aspirin [Ecotrin] 81 mg PO DAILY 01/10/16 08/17/18 Celecoxib [CeleBREX] 200 mg PO BID 01/10/16 08/17/18 Cholecalciferol (Vitamin D3) 5,000 iu PO DAILY 01/10/16 08/17/18 [D3-5000 90 mg-5000 Iu] Escitalopram [Lexapro] 20 mg PO DAILY 01/10/16 08/17/18 Esomeprazole Magnesium [Nexium] 40 mg PO DAILY 01/10/16 08/17/18 Gabapentin [Neurontin] 800 mg PO TID 01/10/16 08/17/18 Levothyroxine [Synthroid] 50 mcg PO QAM 01/10/16 08/17/18 Metoprolol Succinate 25 mg PO DAILY 01/10/16 08/17/18 [place]-3 Acid Ethyl Esters [Lovaza] 1 gm PO BID 01/10/16 08/17/18 Oxycodone HCl [Oxycodone HCl ER] 40 mg PO BID PRN 01/10/16 08/17/18 Simvastatin 10 mg PO DAILY 01/10/16 08/17/18 oxyCODONE [oxyCODONE Immediate 5 mg PO BID PRN 01/10/16 08/17/18 Release Tab] Prednisone [Deltasone] 20 mg PO BID 01/24/18 08/17/18 Albuterol HFA [Ventolin HFA 90 1 puff IH Q6H 08/17/18 08/17/18 mcg/actuation (8 g)] Albuterol/Ipratropium [Duoneb 3 1 vial IH QID 08/17/18 08/17/18 mg/0.5 mg (3 ml) UD] Budesonide [Pulmicort Respules] 1 vial IH BID 08/17/18 08/17/18 Review of Systems - Review of Systems Constitutional: Fatigue. absent: Weight Change, Fevers, Night Sweats Eyes: absent: Vision Changes, Eye Pain ENT: absent: Hearing Changes Respiratory: Cough, Sputum. absent: SOB, Wheezing Cardiovascular: absent: Chest Pain, Palpitations, Edema, Syncope Gastrointestinal: absent: Abdominal Pain, Stool Changes Genitourinary Male: absent: Dysuria Musculoskeletal: Back Pain. absent: Arthralgias, Neck Pain Skin: absent: Rash Neurological: absent: Headache, Focal Weakness Psychiatric: absent: Anxiety, Depression Physical Exam Temperature: Afebrile Appearance: Positive for: Well-Appearing Pain Distress: Mild Mental Status: Positive for: Alert and Oriented X 3 - Systems Exam Head: Present: Normocephalic, Contusion (L posterior scalp, 0.5cm x 0.5cm) Pupils: Present: PERRL Extroacular Muscles: Present: EOMI Conjunctiva: Present: Normal Ears: Present: Normal, NORMAL TM. No: Erythema Mouth: Present: Moist Mucous Membranes, Dry Pharnyx: Present: Normal. No: ERYTHEMA, EXUDATE, TONSILS ENLARGED Nose (External): Present: Atraumatic. No: Abrasion, Contusion, Laceration, Lesions Nose (Internal): Present: Normal Inspection, No Active Bleeding. No: Septal Hematoma, Epistaxis Neck: Present: Normal Range of Motion. No: Meningeal Signs, MIDLINE TENDERNESS Respiratory/Chest: Present: Clear to Auscultation, Good Air Exchange. No: Respiratory Distress, Accessory Muscle Use, Wheezes, Decreased Breath Sounds, Retracting, Rhonchi Cardiovascular: Present: Regular Rate and Rhythm, Murmurs, Normal S1, S2 Abdomen: Present: Normal Bowel Sounds. No: Tenderness, Distention, Peritoneal Signs Back: Present: Midline Tenderness. No: CVA Tenderness (L3 point tenderness), Paraspinal Tenderness Upper Extremity: Present: Normal Inspection, Normal ROM, NORMAL PULSES, Neurovascularly Intact. No: Cyanosis, Edema Lower Extremity: Present: Edema (1+), NORMAL PULSES, Neurovascularly Intact. No: CALF TENDERNESS Neurological: Present: GCS=15, CN II-XII Intact, Speech Normal Skin: Present: Warm, Dry. No: Rashes Psychiatric: Present: Alert, Oriented x 3 Medical Decision Making ED Course and Treatment: 78 yr old male p/w fall, weakness and cough. Fall w/ resultant x1 episode of loss of bowel and bladder function in the setting of previous back surgeries and chronic back pain. Point tenderness along L3, midline. MRI + CT ordered. No saddle anesthesia. No overlying erythema or hx of DM2 or immunosuppresion. No abdominal pain. Pt also notes diarrhea before, without recent abx, no dark ro bloody stool. No abd pain on exam. No chest tenderness palpated. Normal neuro exam w/ out slurred speech or unilateral weakness. No meningeal signs. L posterior scalp contusion, mild. Lungs clear, w/ out any wheezes. Likely PNA, but will seek MRI + CT to rule out cord compression. No signs of worsening cord compression at this time, no saddle anesthesia. EK, Sinus w/ APCs, no stemi 08/17/18 19:07 AMARJIT, WBC 16, gentle hydration given b/l le mild edema labs ordered lactic non elevated 08/17/18 19:39 BNP elevated, fluids d/c, pressure stable PPX abx ordered given WBC elevation and coughing/ weak pending MRI, CT 08/17/18 20:44 CTH on my read unremarekable appreciate consult w/ Dr. Amanda- fully endorsed- pending MRI we are to admit to her service. Oncoming physician to call w/ MRI results to Dr. Amanda signed out to Dr. Vazquez pending MRI pt in NAD, agreeable to plan - RAD Interpretation Radiology Orders: 08/17/18 18:27 HEAD W/O CONTRAST [CT] Stat 08/17/18 18:28 ABD & PELVIS W/O PO OR IV CONT [CT] Stat CERVICAL SPINE W/O CONTRAST [CT] Stat LUMBAR SPINE W/O CONTRAST [CT] Stat CHEST TWO VIEWS (PA/LAT) [RAD] Stat 08/17/18 18:33 SPINAL CANAL LUMBAR W/O CONT [MRI] Stat Disposition/Present on Arrival - Present on Arrival Any Indicators Present on Arrival: No History of DVT/PE: No History of Uncontrolled Diabetes: No Urinary Catheter: No History of Decub. Ulcer: No History Surgical Site Infection Following: None - Disposition Have Diagnosis and Disposition been Completed?: Yes Diagnosis: AMARJIT (acute kidney injury), CHF (congestive heart failure), Enuresis, Back pain Disposition: HOSPITALIZED Disposition Time: 20:43 Patient Problems: Current Active Problems Problem Status Onset AMARJIT (acute kidney injury) Acute Back pain Acute CHF (congestive heart failure) Acute Enuresis Acute Condition: STABLE
[2018-08-17 18:58] LABS: ALBUMIN 3.8 g/dL (3.0-4.8); AST/SGOT 27 U/L (17-59); BLOOD UREA NITROGEN 29 mg/dL (7-21); GFR NON-AFRICAN AMERICAN 42
[2018-08-17] MEDS ORDERED: Sodium Chloride 0.9% 500 ML IV SCH (19:00)
[2018-08-17 19:03] LABS: VENOUS BLOOD GAS BASE EXCESS 0.4 mmol/L (0.0-2.0); VENOUS BLOOD GAS PO2 28 mm/Hg (30-55)
[2018-08-17 19:11] LABS: TROPONIN I < 0.01 ng/mL
[2018-08-17 19:17] LABS: ALT/SGPT < 6 U/L (7-56)
[2018-08-17 19:42] LABS: LYMPHOCYTE 4 % (22.0-35.0); MONOCYTE 1 % (1.0-6.0); NEUTROPHIL 89 % (50.0-70.0)
[2018-08-17 19:43] LABS: ANISOCYTOSIS SLIGHT; BAND 6 % (0-2); PLATELET ESTIMATE NORMAL (NORMAL)
[2018-08-17 19:44] LABS: HYPOCHROMIA SLIGHT
[2018-08-17] MEDS ORDERED: Vancomycin 1gm in NS 250ml 1 GM/250 ML BAG IVPB STA (20:40)
--- NOTE | 2018-08-17 21:34 | ED PDOC ---
Physical Exam Vital Signs Reviewed: Yes Vital Signs Temp Pulse Resp BP Pulse Ox 08/17/18 21:10 88 19 110/66 95 08/17/18 18:44 77 18 113/63 93 L 08/17/18 17:31 99 F 74 20 91/32 L 89 L Temperature: Afebrile Blood Pressure: Normal Pulse: Regular Respiratory Rate: Normal Appearance: Positive for: Well-Appearing, Non-Toxic, Comfortable Pain Distress: None Mental Status: Positive for: Alert and Oriented X 3 Medical Decision Making ED Course and Treatment: 08/17/18 21:32: Case endorsed to me by Dr. Mak. Pending MRI and LS Spine. prior to admission. Patient had presented following a fall. Patient had undergone multiple X- Ray/ CT studies. concerned because of patient's low back pain and apparent incontinence. MRI was ordered. Patient was also treated earlier for mild congestive failure/pneumonia. Patient is currently stable. Dr. Mak had discussed case with PMD, Dr. Amanda. Patient will be admitted following the results of the MRI. CT Head without Intravenous Contrast. IMPRESSION: 1. There is generalized parenchymal atrophy. 2. Chronic periventricular and subcortical microvascular disease is seen. 3. No acute intracranial pathology. Electronically signed on Aug 17, 2018 8:57:18 PM EDT by: Valdez Green M.D., PASCALE Certified By [employer] Fellowship Trained MRI and CT Specialist CT - CERVICAL SPINE IMPRESSION: 1. Multilevel disk pathology most severe at C3-4. 2. Straightening of cervical lordosis is seen, suggesting muscular spasm. 3. Grade 1 anterolisthesis of C3 on C4. Electronically signed on Aug 17, 2018 9:01:29 PM EDT by: Valdez Green M.D., PASCALE Certified By [employer]BR [employer] Fellowship Trained MRI and CT Specialist CT - ABDOMEN AND PELVIS IMPRESSION: 1. Several calcified gallstones. 2. Sigmoid diverticulosis with no evidence of acute diverticulitis. 3. Small fat-containing umbilical hernia. 4. Prostate gland calcifications. 5. Left inguinal hernia containing fat and a small amount of fluid. 6. Right lower lobe lung nodule. Consider further evaluation with dedicated chest CT. 7. Atelectasis or scarring in the lingula. 8. Pneumonia. Electronically signed on Aug 17, 2018 9:22:57 PM EDT by: Valdez Green M.D., PASCALE Certified By [employer] Fellowship Trained MRI and CT Specialist CT - LUMBAR SPINE IMPRESSION: 1. No fracture. 2. Straightening of lumbar lordosis is seen, suggesting muscular spasm. 3. Grade 1 anterolisthesis of L4 on L5, L5 on S1. 4. Moderate levoscoliosis is seen. 5. Grade 1 anterolisthesis of L4 on L5 L5 on S1. 6. Multilevel disk disease, most severe at L4-L5 and L5-S1 Electronically signed on Aug 17, 2018 9:04:28 PM EDT by: Valdez Green M.D., PASCALE Certified By [employer] Fellowship Trained MRI and CT Specialist MR - LUMBAR SPINE IMPRESSION: 1. Grade-1 anterolisthesis of L4 on L5 and L5 on S1. 2. Patchy heterogeneous marrow pattern, likely related to marrow reconversion rather marrow replacement. 3. L5-S1, broad-based herniated disc across the disc space lateralized towards the left measures up to 5 mm. Posterior spurring and bulging. Severe left and moderate right foraminal stenosis. Canal is mildly to moderately stenotic. Severe bilateral hypertrophic facet disease and ligamentum hypertrophy is seen. Spondylolisthesis contributes. 4. L4-L5, broad-based herniated disc noted across the disc space measures up to 5 mm. Superimposed bulge and spurring are present. Lateralization towards the right. Severe right and moderate left foraminal stenosis. Canal is mildly to moderately stenotic. Bilateral hypertrophic facet disease, ligamentum hypertrophy, and spondylolisthesis contribute. 5. L3-L4, 4 mm bulging. Both foramina are mildly stenotic. Canal is moderately stenotic. Bilateral hypertrophic facet disease and ligamentum hypertrophy is seen. 6. L2-L3 and L1-L2, 2 mm bulge indents the ventral thecal sac. Electronically signed on Aug 17, 2018 10:10:47 PM EDT by: Valdez Green M.D., PASCALE Certified By [employer]BR [employer] Fellowship Trained MRI and CT Specialist 08/18/18 04:04 - Lab Interpretations Lab Results: pO2 28 mm/Hg (30-55) L 08/17/18 18:30 VBG pH 7.30 (7.32-7.43) L 08/17/18 18:30 VBG pCO2 57.0 (40-60) 08/17/18 18:30 VBG HCO3 28.0 mmol/l (21-28) 08/17/18 18:30 VBG Total CO2 29.7 mmol.L (22-28) H 08/17/18 18:30 VBG O2 Sat (Calc) 49.3 % (40-65) 08/17/18 18:30 VBG Base Excess 0.4 mmol/L (0.0-2.0) 08/17/18 18:30 VBG Potassium 4.4 mmol/L (3.6-5.2) 08/17/18 18:30 Sodium 139.0 mmol/L (132-148) 08/17/18 18:30 Chloride 104.0 mmol/L (98-107) 08/17/18 18:30 Glucose 123 mg/dl (75-110) H 08/17/18 18:30 Lactate 1.3 mmol/L (0.7-2.1) 08/17/18 18:30 FiO2 21.0 % 08/17/18 18:30 Troponin I < 0.01 ng/mL 08/17/18 18:30 NT-Pro-B Natriuret Pep 1760 pg/mL (0-450) H 08/17/18 18:30 Total Bilirubin 1.1 mg/dL (0.2-1.3) 08/17/18 18:30 AST 27 U/L (17-59) 08/17/18 18:30 ALT < 6 U/L (7-56) L 08/17/18 18:30 Alkaline Phosphatase 92 U/L (38-126) 08/17/18 18:30 Total Protein 7.8 g/dL (5.8-8.3) 08/17/18 18:30 Albumin 3.8 g/dL (3.0-4.8) 08/17/18 18:30 Globulin 4.0 gm/dL 08/17/18 18:30 Albumin/Globulin Ratio 1.0 (1.1-1.8) L 08/17/18 18:30 - RAD Interpretation Radiology Orders: 08/17/18 18:27 HEAD W/O CONTRAST [CT] Stat 08/17/18 18:28 ABD & PELVIS W/O PO OR IV CONT [CT] Stat CERVICAL SPINE W/O CONTRAST [CT] Stat LUMBAR SPINE W/O CONTRAST [CT] Stat CHEST ONE VIEW [RAD] Stat 08/17/18 18:33 SPINAL CANAL LUMBAR W/O CONT [MRI] Stat - Medication Orders Current Medication Orders: Ceftriaxone Sodium (Rocephin 1 Gram Ivpb) 1 gm in 100 mls @ 100 mls/hr IVPB DAILY JOSÉ LUIS; Protocol Vancomycin HCl (Vancomycin 1gm) 1 gm in 250 mls @ 167 mls/hr IVPB STAT STA; Protocol Stop: 08/17/18 22:09 Discontinued Medications Albuterol/Ipratropium (Duoneb 3 Mg/0.5 Mg (3 Ml) Ud) 3 ml IH STAT STA Stop: 08/17/18 18:48 Last Admin: 08/17/18 19:21 Dose: 3 ml Furosemide (Lasix) 20 mg IVP STAT STA Stop: 08/17/18 20:44 Sodium Chloride (Sodium Chloride 0.9%) 500 mls @ 50 mls/hr IV .Q10H JOSÉ LUIS Last Admin: 08/17/18 19:20 Dose: 50 mls/hr eMAR Start Stop Document 08/17/18 19:20 EB (Rec: 08/17/18 19:21 EB [id number] Intravenous Solution Start Date 08/17/18 Start Time 19:20 - Scribe Statement The provider has reviewed the documentation as recorded by the Oliveribemmanuel Mitchell Provider Scribe Attestation: All medical record entries made by the Scribe were at my direction and personally dictated by me. I have reviewed the chart and agree that the record accurately reflects my personal performance of the history, physical exam, medical decision making, and the department course for this patient. I have also personally directed, reviewed, and agree with the discharge instructions and disposition. Disposition/Present on Arrival - Present on Arrival Any Indicators Present on Arrival: No History of DVT/PE: No History of Uncontrolled Diabetes: No Urinary Catheter: No History of Decub. Ulcer: No History Surgical Site Infection Following: None - Disposition Have Diagnosis and Disposition been Completed?: Yes Diagnosis: AMARJIT (acute kidney injury), CHF (congestive heart failure), Enuresis, Back pain Disposition: HOSPITALIZED Disposition Time: 22:57 Patient Plan: Admission Patient Problems: Current Active Problems Problem Status Onset AMARJIT (acute kidney injury) Acute Back pain Acute CHF (congestive heart failure) Acute Enuresis Acute Condition: STABLE
--- NOTE | 2018-08-17 21:42 | RAD ---
HISTORY: fall COMPARISON: Chest x-ray performed 01/22/18 TECHNIQUE: Chest, one view. FINDINGS: LUNGS: Biapical pleural thickening/scarring. 9 mm right lower lobe and 6 mm left lower lobe nodular opacities. Prominent chronic appearing interstitial markings. Please note that chest x-ray has limited sensitivity for the detection of pulmonary masses. CARDIOVASCULAR: Heart size appears top normal. Ectatic aorta containing atherosclerotic calcifications. OSSEOUS STRUCTURES: Osseous demineralization. Degenerative changes. VISUALIZED UPPER ABDOMEN: Unremarkable. OTHER FINDINGS: None. IMPRESSION: Biapical pleural thickening/scarring. 9 mm right lower lobe and 6 mm left lower lobe nodular opacities. Prominent chronic appearing interstitial markings.
[2018-08-17 22:54] LABS: URINE BILIRUBIN NEGATIVE (NEGATIVE); URINE BLOOD NEGATIVE (NEGATIVE); URINE GLUCOSE (UA) NEGATIVE (NEGATIVE); URINE LEUKOCYTE ESTERASE NEGATIVE Leu/uL (NEGATIVE); URINE PROTEIN NEGATIVE mg/dL (<30 mg/dL); URINE UROBILINOGEN 0.2 E.U./dL (<1 E.U./dL)
[2018-08-17 22:58] LABS: URINE APPEARANCE CLEAR (CLEAR); URINE COLOR YELLOW (YELLOW)
[2018-08-17] MEDS ORDERED: oxyCODONE 5 mg Immediate Release Tab PO STA (23:21)
[2018-08-18] MEDS: Arformoterol 15 mcg/2 ml Inh Sol IH SCH ×2 (07:25→19:39)
[2018-08-18] MEDS: Budesonide 0.5 mg/2 ml Inhal Susp UD IH SCH ×2 (07:26→19:39)
[2018-08-18] MEDS ORDERED: oxyCODONE 20 mg ER Tab (oxyCONTIN) PO PRN (08:37)
--- NOTE | 2018-08-18 09:36 | CT ---
Date of service: 08/17/2018 PROCEDURE: CT HEAD WITHOUT CONTRAST. HISTORY: fall COMPARISON: None available TECHNIQUE: Axial computed tomography images were obtained through the head/brain without intravenous contrast. Radiation dose: Total exam DLP = 1001.61 mGy-cm. This CT exam was performed using one or more of the following dose reduction techniques: Automated exposure control, adjustment of the mA and/or kV according to patient size, and/or use of iterative reconstruction technique. FINDINGS: Streak artifact obscures evaluation of the skull base. HEMORRHAGE: No intracranial hemorrhage. BRAIN: Diffuse atrophy with prominence of the ventricles and sulci noted. No mass effect or edema. Intracranial atherosclerosis. Chronic appearing tiny lacunar-type infarcts. Scattered periventricular and subcortical white matter hypodensities, which are nonspecific, but often seen with chronic microvascular ischemic disease. Please note that MRI with diffusion imaging is more sensitive in the detection of acute ischemic event. VENTRICLES: No hydrocephalus. CALVARIUM: Unremarkable. PARANASAL SINUSES: Unremarkable as visualized. No significant inflammatory changes. MASTOID AIR CELLS: Unremarkable as visualized. No inflammatory changes. OTHER FINDINGS: None. IMPRESSION: Chronic appearing bilateral lacunar type infarcts. Nonspecific white matter changes as above. Preliminary impression was provided by [employer].
[2018-08-18] MEDS: Levothyroxine 50 MCG TAB PO SCH (09:55)
[2018-08-18] MEDS: oxyCODONE 20 mg ER Tab (oxyCONTIN) PO SCH ×2 (09:55→21:13)
[2018-08-18] MEDS: Metoprolol Succinate 25 mg XL Tab PO SCH (09:56)
[2018-08-18] MEDS: cefTRIAXone 1 gm 1 GM/100 ML BAG IVPB SCH (09:57)
--- NOTE | 2018-08-18 10:15 | CARD ---
APPROVED REPORT Date of service: 08/17/2018 EKG Measurement Heart [id number] <Conclusion> Sinus rhythm with premature atrial complexes Otherwise normal ECG
--- NOTE | 2018-08-18 11:13 | CT ---
Date of service: 08/17/2018 CT cervical spine without IV contrast Indication: fall Comparison: None available. Technique: Axial computed tomography images were obtained of the cervical spine without the use of intravenous contrast. Coronal and sagittal reformatted images were created and reviewed. This CT exam was performed using 1 or more of the following dose reduction techniques: Automated exposure control, adjustment of the MAA and/or kV according to patient size, and/or use of iterative reconstruction technique. Radiation dose: Total exam DLP = 432.11 mGy-cm. Findings: Diffuse osseous demineralization limits evaluation for acute fracture lines. Anterolisthesis of C3 on C4. Multilevel degenerative changes including osteophyte formation and intervertebral disc space narrowing. There is no evidence of acute fracture or subluxation. The prevertebral soft tissues and spinolaminar lines appear intact. The lateral masses are preserved. The dens tip is intact. There is proper alignment of the lateral masses of C1 with the C2 vertebral body. Included portions of the thyroid gland appear unremarkable. Included portions of lung apices demonstrate biapical consolidations/pleural thickening. Impression: Diffuse osseous demineralization. Multilevel degenerative changes. Grade 1 anterolisthesis of C3 on C4. No evidence of acute displaced fracture. Biapical pleural thickening/consolidations. Preliminary impression was provided by [employer].
--- NOTE | 2018-08-18 11:28 | CT ---
PROCEDURE: CT Abdomen and Pelvis without Oral or IV contrast. HISTORY: fall COMPARISON: CT chest without contrast performed 01/22/18, CT chest without contrast performed 08/16/12 TECHNIQUE: Contiguous axial images of the abdomen and pelvis. No oral or IV contrast administered. Coronal and Sagittal reformats generated and reviewed. Radiation dose: Total exam DLP = 508.53 mGy-cm. This CT exam was performed using one or more of the following dose reduction techniques: Automated exposure control, adjustment of the mA and/or kV according to patient size, and/or use of iterative reconstruction technique. FINDINGS: There is limited evaluation of the solid organs without the administration of IV contrast. LOWER THORAX: Approximately 9 mm right lower lobe nodule. Patchy bilateral lower lobe opacities appear consistent with pneumonia. No significant pleural effusion or definite pneumothorax. LIVER: Unremarkable. GALLBLADDER AND BILE DUCTS: Cholelithiasis. PANCREAS: Fatty atrophy of the pancreas. SPLEEN: Unremarkable. ADRENALS: Unremarkable. KIDNEYS AND URETERS: No hydronephrosis or obstructing renal calculus. BLADDER: The urinary bladder appears unremarkable. REPRODUCTIVE: Prostate gland calcifications. APPENDIX: No secondary signs of acute appendicitis. BOWEL: The stomach is nondistended. Lack of oral contrast limits evaluation for bowel pathology. The bowel loops appear within normal limits of caliber without evidence of intestinal obstruction. Diverticulosis without CT evidence of acute diverticulitis. PERITONEUM: No significant free fluid. No definite free air. LYMPH NODES: No bulky lymphadenopathy identified. VASCULATURE: Atherosclerotic calcifications of the aorta and branches. No aortic aneurysm. BONES: Diffuse osseous demineralization. Extensive degenerative changes. Severe scoliosis. OTHER FINDINGS: Tiny fat containing umbilical hernia. Fat containing left inguinal hernia. IMPRESSION: Approximately 9 mm right lower lobe nodule, stable when remeasured in similar position. Patchy bilateral lower lobe opacities appear consistent with pneumonia. Cholelithiasis. Diverticulosis without CT evidence of acute diverticulitis. Tiny fat containing umbilical hernia. Fat containing left inguinal hernia. Additional findings as above. Preliminary impression was provided by [employer].
--- NOTE | 2018-08-18 11:36 | CT ---
Date of service: 08/17/2018 CT lumbar spine without IV contrast Indication: fall, one episode of loss of bowel / bladder fx Comparison: CT abdomen and pelvis without contrast performed 08/17/18 Technique: Noncontrast axial images of the lumbar spine were provided. Sagittal and coronal reformatted images were generated and reviewed. This CT exam was performed using 1 or more of the following dose reduction techniques: Automated exposure control, adjustment of the MAA and/or kV according to patient size, and/or use of iterative reconstruction technique. Total exam DLP: 1875.46 MGy-cm Findings: Osseous demineralization limits evaluation for acute fracture lines. Multilevel degenerative changes including intervertebral disc space narrowing and vacuum disc phenomenon most prominent at L4-L5 and L5-S1. Grade 1 anterolisthesis of L4 on L5 and L5 on S1. Scoliosis. No acute fracture identified. Paraspinal soft tissues appear unremarkable. Limited visualization of the intra-abdominal and intrapelvic contents; please refer to report from CT of the abdomen and pelvis performed without contrast the same day. Impression: Diffuse osseous demineralization. Multilevel degenerative changes most severe at L4-L5 and L5-S1 as above. No acute fracture identified. Preliminary impression was provided by [employer].
--- NOTE | 2018-08-18 12:16 | MRI ---
Date of service: 08/17/2018 PROCEDURE: MR LUMBAR SPINE WITHOUT CONTRAST HISTORY: fall COMPARISON: Lumbar spine CT without contrast 08/17/2018. TECHNIQUE: Multiecho multiplanar sequences were performed through the lumbar spine without the use of intravenous contrast. FINDINGS: Normal lumbar lordosis is interrupted by grade 1 spondylolistheses of L4 anterior to L5 and L5 anterior S1. No spondylolysis encountered and therefore this is a function of degenerative facet arthropathy, which appears advanced. A moderate levoscoliotic lumbar spinal deformity is also present. Vertebral body heights are preserved. Gross Modic type 2 endplate degenerative changes are seen at L4-5 with type 1 changes at L5-S1. Nonspecific heterogeneous marrow signal changes identified diffusely throughout the lumbar spine. Conus medullaris unremarkable at the level of L1. Paraspinal soft tissues are unremarkable. T12-L1: No disc herniation, spinal canal stenosis or neural foraminal narrowing. L1-2: No disc herniation, spinal canal stenosis or neural foraminal narrowing. L2-3: No disc herniation, spinal canal stenosis or neural foraminal narrowing. L3-4: No disc herniation. A circumferential disc bulge is appreciate with posterior component flattening the ventral thecal sac minimally. No significant stenosis of the central canal. No left neural foraminal stenosis. Mild right neural foraminal stenosis appreciated. Asymmetry is on the basis of scoliotic deformity. L4-5: No disc herniation. Spondylolisthesis and gross facet arthropathy are identified causing mild central canal stenosis, severe right and borderline left neural foraminal stenosis. Asymmetry is on the basis of scoliotic deformity. L5-S1: No disc herniation. Gross facet joint degenerative arthropathy is seen greater the left and right sides with spondylolisthesis and disc osteophyte complex occurring concomitantly resulting in obliteration left lateral recess and otherwise borderline central canal stenosis, moderate to severe right neural foraminal stenosis and severely stenotic if not occluded left neural foramen. OTHER FINDINGS: None. IMPRESSION: 1. No acute fracture or spondylolisthesis appreciated. Grade 1 spondylolisthesis ease of L4-5 and L5-S1 are identified as well as moderate levoscoliotic lumbar spinal deformity creating asymmetry in posterior element degenerative findings resulting in variable degenerative changes, the worst of which is described below. 2. Mild L4-5 central canal stenosis with severe right and borderline left neural foraminal stenosis. Gross left L5-S1 neural foraminal stenosis a [id number] right neural foraminal stenosis and borderline generalized central canal stenosis obliteration of left lateral recess. 3. Nonspecific heterogeneous marrow signal changes throughout the lumbar spine. Preliminary report provided by [employer], 08/16/2018, 10:10 p.m..
--- NOTE | 2018-08-18 14:29 | CT ---
Date of service: 08/18/2018 CT chest without IV contrast Indication: sob Technique: Contiguous axial images were obtained through the chest without intravenous contrast enhancement. Sagittal and coronal reconstructions were generated and reviewed. This CT exam was performed using 1 or more of the following dose reduction techniques: Automated exposure control, adjustment of the MAA and/or kV according to patient size, and/or use of iterative reconstruction technique. Radiation dose (DLP): 419.79 MGy-cm. Comparison: Chest CT without contrast performed 01/22/18, chest x-ray performed 08/17/18, CT abdomen and pelvis without contrast performed 08/17/18 Findings: Visualized portions of the inferior thyroid gland appear unremarkable. The unenhanced mediastinal and hilar vascular structures appears grossly unremarkable. Heart size appears within normal limits. Coronary artery calcifications. Prominent sub cm mediastinal/prevascular adenopathy, nonspecific. Right greater than left apical scarring/pleural thickening and atelectasis. Bilateral lower lobe patchy nodular and ground-glass consolidations consistent with pneumonia. Dependent atelectasis bilaterally. Small bilateral pleural effusions. 9 mm nodule at the right lower lobe now obscured by consolidation. No pneumothorax. Limited visualization of the noncontrast upper abdomen: Fatty atrophy of the pancreas. Cholelithiasis partially imaged. Osseous demineralization. Kyphosis. Degenerative changes. Scoliosis. Impression: Right greater than left apical scarring/pleural thickening and atelectasis. Bilateral lower lobe patchy nodular and ground-glass consolidations consistent with pneumonia. Dependent atelectasis bilaterally. Recommend chest CT follow-up upon completion of therapy to demonstrate resolution of nodular pattern. Small bilateral pleural effusions. 9 mm nodule at the right lower lobe now obscured by consolidation. Additional findings as above.
[2018-08-18] MEDS: oxyCODONE 5 mg Immediate Release Tab PO PRN (18:19)
--- NOTE | 2018-08-18 21:29 | HP ---
DATE OF EXAM: 08/18/2018 HISTORY OF PRESENT ILLNESS: The patient is 78 years old. According to the daughter lately he has been increasingly weak, has difficulty walking. He has been incontinent of urine and bowel lately. Although he has chronic degenerative disc disease and difficulty walking, but he was handling somehow, but the patient's daughter who is by the bedside stated yesterday when she went out and came back she found him on the floor in feces and urine. She shows that she got concerned and brought him to emergency room for further management and to get checked out. She states that his appetite has been poor and he has been sleeping a lot lately. There is no history of fever or chills. No history of nausea or vomiting. However his appetite is not as before. PAST MEDICAL HISTORY: Significant for; 1. Severe degenerative disc disease. 2. History of peptic ulcer disease. 3. Anxiety disorder. 4. Hyperlipidemia. 5. Hypertension. 6. He had an upper endoscopy done by Dr. Jeffrey on 07/2015. He was found to have gastritis. ALLERGIES: HE IS ALLERGIC TO ERYTHROMYCIN. HOME MEDICATIONS: He is on MS Contin 40 mg twice a day, Xanax 0.25 mg t.i.d. p.r.n., prednisone 20 mg twice a day and aspirin 81 mg daily. He is on Pulmicort. He is on gabapentin 300 mg three times a day, metoprolol 25 mg daily, levothyroxine 50 mcg daily, Nexium 40 mg daily, Lexapro 20 mg daily, Celebrex 200 mg twice a day. SOCIAL HISTORY: He lives with his daughter. Used to be a smoker from teenage up to 40's and he quit more than 15 years ago. Denies alcohol use, however he is on prescribed narcotics. PHYSICAL EXAMINATION: GENERAL: He is awake and alert, complaint of generalized pain, difficulty moving even in bed. VITAL SIGNS: He is afebrile. Pulse 81, respiration 20 and blood pressure 147/78. LUNGS: Bilateral diffusely decreased breath sounds. More at apices. HEART: S1 and S2, audible. ABDOMEN: Soft and nontender. No rebound. No guarding. NEUROLOGICAL: The patient is awake, alert and able to communicate. He has difficulty moving lower extremity because of pain, difficulty rolling in bed because of back pain. EXTREMITIES: Bilateral legs no edema. LABORATORY DATA: WBC 16.3, hemoglobin 11.7, hematocrit 35.8 and platelet of 205. Chemistry; sodium 140, potassium 4.5, chloride 104, CO2 of 25, BUN 29, creatinine 1.6, blood sugar of 115, CPK 30 and BNP 1760. Urinalysis is unremarkable. He had MRI of lumbar spine done that shows severe degenerative disc disease and no acute fracture, seen grade 1 spondylolisthesis as well as moderate levoscoliosis and spinal stenosis appreciated. He had x-ray of chest done that shows by biapical pleural thickening, a 9 mm right lower lobe and 3.6 mm left lower lobe nodule and interstitial markings. CT scan of the head shows chronic appearing bilateral lacunar type infarcts, nonspecific white matter changes. ASSESSMENT: 1. Status post fall. 2. Generalized weakness, difficulty walking. 3. Interstitial lung disease. 4. Renal insufficiency. 5. Severe degenerative disc disease with spinal stenosis. PLAN: The patient has been started on IV antibiotic and IV steroid. I will order for a CT scan of the chest, order for continue him on IV fluid. I will request Dr. Jeffrey to evaluate for his fecal incontinence. We will follow up in a.m. Gio Amanda MD
[2018-08-19 06:40] LABS: BASO # 0.01 K/mm3 (0.0-2.0); BASO % 0.1 % (0.0-3.0); EOS % 0.2 % (1.5-5.0); HEMOGLOBIN 10.2 g/dL (14.0-18.0); LYMPH # 1.2 (1.2-3.4); MEAN CELL VOLUME 97.5 fl (80.0-105.0); MEAN CORPUSCULAR HEMOGLOBIN 31.6 pg (25.0-35.0); MEAN CORPUSCULAR HGB CONC 32.4 g/dl (31.0-37.0); MEAN PLATELET VOLUME 8.8 fl (7.0-11.0); MONO # 0.9 (0.1-0.6); MONO % 9.9 % (1.0-6.0); RBC 3.23 10^6/uL (3.5-6.1); RED CELL DISTRIBUTION WIDTH 13.1 % (11.5-14.5); WHITE BLOOD COUNT 9.4 10^3/uL (4.5-11.0)
[2018-08-19 07:15] LABS: ALB/GLOB RATIO 0.8 (1.1-1.8); ALBUMIN 3.1 g/dL (3.0-4.8); ALT/SGPT < 6 U/L (7-56); AST/SGOT 22 U/L (17-59); BLOOD UREA NITROGEN 23 mg/dL (7-21); CALCIUM 8.5 mg/dL (8.4-10.5); GFR NON-AFRICAN AMERICAN > 60
[2018-08-19] MEDS: Arformoterol 15 mcg/2 ml Inh Sol IH SCH ×2 (07:39→20:25)
[2018-08-19] MEDS: Budesonide 0.5 mg/2 ml Inhal Susp UD IH SCH ×2 (07:39→20:25)
[2018-08-19] MEDS: Levothyroxine 50 MCG TAB PO SCH (09:01)
[2018-08-19] MEDS: cefTRIAXone 1 gm 1 GM/100 ML BAG IVPB SCH (09:49)
[2018-08-19] MEDS: Metoprolol Succinate 25 mg XL Tab PO SCH (09:51)
[2018-08-19] MEDS: oxyCODONE 20 mg ER Tab (oxyCONTIN) PO SCH ×2 (09:52→21:29)
--- NOTE | 2018-08-19 13:26 | CON ---
DATE OF CONSULTATION: 08/19/2018 GASTROENTEROLOGY CONSULTATION REQUESTING PHYSICIAN: Dr. Amanda. REASON FOR CONSULTATION:/HISTORY OF PRESENT ILLNESS: I have been asked to see this 78-year-old male, well-known to me with multiple medical problems including severe degenerative disk disease, anxiety disorder, peptic ulcer disease, who was admitted to the hospital due to increasing weakness and difficulty walking. I have been asked to see this patient for fecal incontinence. The patient states that he has also been incontinent of urine. The patient was brought to the emergency room by the family for generalized weakness. He states that he has both fecal and urinary incontinence. The incontinence is intermittent and sporadic and not on a regular basis. He denies any new weakness in his lower extremities. He denies any paresthesias in his feet. PAST MEDICAL HISTORY: Notable for degenerative disk disease of his lower spine, peptic ulcer disease, hyperlipidemia, hypertension, anxiety. SOCIAL HISTORY: He smoked up to a pack of cigarettes per day for 20 years. He quit 15 years ago. He denies alcohol use. He is on chronic pain medications. FAMILY HISTORY: Noncontributory. REVIEW OF SYSTEMS: Fourteen-point review of systems is notable for generalized weakness, fecal and urinary incontinence. MEDICATIONS: Medications at home include MS Contin, Xanax, prednisone, aspirin, Pulmicort, gabapentin, metoprolol, Levoxyl, Nexium, Lexapro and Celebrex. PHYSICAL EXAMINATION: GENERAL: Elderly male, lying in bed, in no acute distress. VITAL SIGNS: Reveal a temperature of 97.9, blood pressure 144/79, heart rate is 77. HEENT: Reveals sclerae to be white. Conjunctivae pink. NECK: Supple. CHEST: Reveals lungs to be clear. HEART: Reveals a regular rate and rhythm. ABDOMEN: Soft, nontender. No mass. EXTREMITIES: Show no edema. RECTAL: Shows good anal sphincter tone. LABORATORY DATA: Revealed a white blood cell count of 9.4, hemoglobin 10.2. Chemistries reveal BUN 23, creatinine 1. IMPRESSION: A 78-year-old male, admitted to the hospital with generalized weakness, inability to walk with both fecal and urinary incontinence. His incontinence may be related to his severe degenerative disk disease. It is intermittent and sporadic. RECOMMENDATIONS: Neurology evaluation to assess whether the fecal and urinary incontinence is secondary to neurogenic causes. José Miguel Jeffrey MD [facility] # [id number]
--- NOTE | 2018-08-19 17:55 | CON ---
DATE: 08/19/2018 CHIEF COMPLAINT: Frequent falls and low back pain. HISTORY OF PRESENT ILLNESS: This is a 78-year-old man with past medical history of anxiety disorder, hypertension, hyperlipidemia, history of gastritis with chronic low back pain and chronic lumbosacral surgery in the past. Has severe degenerative disc disease in the lumbosacral area, seen on his MRI of the lumbosacral spine. His MRI of the lumbosacral spine showed grade 1 spondylolisthesis on L4-L5 and L5-S1 with moderate levoscoliotic lumbar spinal deformity, in addition he has mild L4-L5 central canal stenosis and gross left L5-S1 neuroforaminal stenosis, mild to moderate on the right, and borderline on the left, in addition to severe foraminal stenosis on the L4-L5 level as well. He is on gabapentin 800 mg p.o. b.i.d. for neuropathic relief given for his back pain and also takes chronic opiates which can keep him constipated. He will benefit from physical therapy likely subacute rehab from our standpoint. He is very deconditioned. PAST MEDICAL HISTORY: As above. FAMILY HISTORY: Noncontributory. SOCIAL HISTORY: No illicit drug use, smoking, or EtOH abuse. REVIEW OF SYSTEMS: A 14-point review of systems is negative except as per the HPI. MEDICATIONS: Reviewed by nurse's reconciliation sheet. ALLERGIES: ALLERGY TO ERYTHROMYCIN BASE. PHYSICAL EXAMINATION: VITAL SIGNS: Temperature afebrile, pulse of 81, blood pressure of 147/70, and respiratory rate 20. HEART: S1 and S2. Normal rate and rhythm. No murmurs, rubs, or gallops. LUNGS: Decreased breath sounds bilaterally. ABDOMEN: Soft, nontender, and nondistended. Bowel sounds present. EXTREMITIES: No clubbing. No cyanosis. Has trace pedal edema bilaterally. NEUROLOGIC: The patient is alert and oriented to person, place, and year. Recall after 5 minutes is 0/3. Poor attention span. Slow thought process. Cranial nerves II through XII are intact. Motor exam; slightly increased tone throughout. Moves all extremities equally. Has a mild resting tremor with the right hand compared to the left. No fasciculations seen on the tongue. Coordination; [id number] intact. No dysmetria noted. Gait is deferred for now. Moves all extremities equally. Toes are downgoing bilaterally. LABORATORY DATA: Sodium is 140, potassium 4.5, chloride 104, carbon dioxide 25, BUN of 29, creatinine 1.6, and random glucose 115. ASSESSMENT AND PLAN: This is a 78-year-old man with a history of severe degenerative disc disease of the lumbosacral area, especially at L4-L5 and L5-S1; history of epileptic seizure, anxiety disorder, on Lexapro, hyperlipidemia and hypertension, came here for falls, increased weakness, and generalized deconditioning state and was found incontinent of his urine and bowel and was found covered in his feces; therefore, came in to the Hospital for further evaluation. He was also found to be dehydrated, he is chronically deconditioned, has elevated BNP. He is on Neurontin 800 mg p.o. three times a day for underlying neuropathic relief as well as chronic opiate therapy for his low back pain. At this time, we will recommend; 1. Physical and occupational therapy, subacute rehab for underlying low back pain, lumbosacral radiculopathy, and poor gait imbalance. 2. Avoid overuse of opiates which can make him constipated and affect his mentation as well. 3. Recommend go from gabapentin 800 p.o. three times a day to 800 twice a day triggering for neuropathic relief. 4. Continue with doxycycline in regard to his bilateral pneumonias and monitor his electrolytes and correct accordingly. Gerardo Jessica MD
--- NOTE | 2018-08-20 01:09 | CON ---
DATE: 08/19/2018 CONSULT SERVICE: Cardiology REASON FOR CONSULTATION: Cardiac evaluation, rule out arrhythmia. BRIEF CLINICAL HISTORY: This is a 78-year-old male with past medical history significant for peptic ulcer disease, anxiety disorder, hypertension, hyperlipidemia, history of degenerative joint disease, and disc disease who was found yesterday, brought by the daughter because lately he is having difficulty in walking. Yesterday, found to be on the floor with feces and urine, and very unstable gait. Patient denies any chest pain. Denies any shortness of breath. Denies any palpitations. PAST MEDICAL HISTORY: Significant for degenerative disc joint disease, history of peptic ulcer disease, anxiety disorder, hypertension, hyperlipidemia, history of gastric ulcer status post endoscopy 2 to 3 years ago found to be gastritis. Significant for COPD, asthma, and arthritis as well. Denies any history of documented coronary artery disease, though patient himself denies any history of coronary artery disease. PAST SURGICAL HISTORY: Significant for endoscopy and colonoscopy by Dr. Jeffrey, found to be mild gastritis. SOCIAL HISTORY: Denies any smoking. Denies any history of alcohol abuse. Lives with his daughter. Patient is an ex-smoker, quit 30 years ago. PREVIOUS CARDIAC WORKUP FOLLOWS: Patient had echocardiography done on 01/23/2018 that revealed ejection fraction of 60%, left atrium moderately dilated, right ventricular systolic function is normal, right atrium is normal, aortic valve thickened due to calcification, but opens normal, leaflet also thickened of mitral valve, trace mitral regurgitation, mitral annulus calcification, tricuspid valve structure is normal, trace tricuspid regurgitation, RV systolic pressure is 29. REVIEW OF SYSTEMS: As per HPI. Denies any history of documented coronary artery disease, but history of COPD, asthma, and bronchitis. PHYSICAL EXAMINATION: As follows; GENERAL: Height of the patient 6 feet, weight of the patient 179 pounds, body mass index 24.3 kg/m2. VITAL SIGNS: Temperature afebrile, heart rate 77, blood pressure 144/79. HEENT: PERRLA. Extraocular muscles intact. NECK: Supple. No carotid bruit or thyromegaly. CHEST: Clear to auscultation. HEART: S1 and S2, regular. ABDOMEN: Soft. EXTREMITIES: Clubbing and cyanosis negative. LABORATORY DATA: Blood workup as follows; WBC 9.4, hemoglobin 10, hematocrit 31.5, and platelet count 187. Chemistry shows sodium 130, potassium 3.9, chloride 103, CO2 of 26, anion gap of 4, BUN 23, creatinine 1. IMPRESSION: A 78-year-old male with past medical history significant for chronic obstructive pulmonary disease, asthma, bronchitis, hypertension, unsteady gait, found yesterday on the floor, brought here because of unsteady gait and loss of consciousness. Denies any syncope or presyncope. Denies any dizziness. Patient's last echocardiogram in 01/2018 shows preserved left ventricular function. No significant atrium, trace tricuspid regurgitation. RECOMMENDATIONS: We will get lipid profile, TSH, and hemoglobin A1c. We will also check orthostatic hypotension, monitoring in telemetry. Will go to rehab. We will follow with you. Thank you Dr. Amanda for providing us the opportunity in taking care of the patient, Spencer Scales. Raghu Wilde MD
--- NOTE | 2018-08-20 03:34 | PN ---
DATE: 08/19/2018 SUBJECTIVE: The patient is a 78-year-old, seen and examined, better. He seems to be more alert, eating well. Awaiting for physical therapy to evaluate him. PHYSICAL EXAMINATION: VITAL SIGNS: He is afebrile, pulse 80, respirations 18, blood pressure 150/80. LUNGS: Bilateral fair airflow. No rhonchi or crackle. HEART: S1 and S2 audible. ABDOMEN: Soft, nontender. No rebound. No guarding. NEUROLOGICAL: He is awake and alert, able to communicate. LABORATORY DATA: WBC is 9.4, hemoglobin is 10, hematocrit is 31, platelets are 187. Chemistries; sodium 138, potassium 3.9, chloride 103, CO2 of 27, BUN 23, creatinine 1.0, blood sugar of 92. Blood cultures are negative. CT scan of the chest shows multifocal pneumonia. ASSESSMENT: 1. Status post fall. 2. Deconditioning, difficulty walking. 3. Degenerative disc disease from L4 to S1 with levoscoliosis and spinal stenosis. PLAN: We will continue the patient on Brovana. He is on doxycycline. Continue him on aspirin. He will maintain on Lipitor and Lexapro. According to ID recommendation, we will cut down his gabapentin. According to Neurology recommendation, cut down Neurontin to 800 twice a day. Continue analgesics. He is on Rocephin and doxycycline and will continue that. Physical therapy evaluation and treatment. Gio Amanda MD
[2018-08-20] MEDS: Levothyroxine 50 MCG TAB PO SCH (06:36)
[2018-08-20 06:56] LABS: EOS % 0.3 % (1.5-5.0); HEMOGLOBIN 10.3 g/dL (14.0-18.0); LYMPH # 0.8 (1.2-3.4); LYMPH % 9.5 % (22.0-35.0); MEAN CELL VOLUME 97.5 fl (80.0-105.0); MEAN CORPUSCULAR HEMOGLOBIN 31.7 pg (25.0-35.0); MEAN CORPUSCULAR HGB CONC 32.5 g/dl (31.0-37.0); MEAN PLATELET VOLUME 8.5 fl (7.0-11.0); MONO # 0.8 (0.1-0.6); MONO % 9.5 % (1.0-6.0); RBC 3.25 10^6/uL (3.5-6.1); RED CELL DISTRIBUTION WIDTH 12.8 % (11.5-14.5); WHITE BLOOD COUNT 8.6 10^3/uL (4.5-11.0)
[2018-08-20 07:18] LABS: ALB/GLOB RATIO 0.9 (1.1-1.8); ALBUMIN 3.3 g/dL (3.0-4.8); ALT/SGPT 7 U/L (7-56); AST/SGOT 30 U/L (17-59); BLOOD UREA NITROGEN 23 mg/dL (7-21); CALCIUM 8.6 mg/dL (8.4-10.5); GFR NON-AFRICAN AMERICAN > 60; HDL CHOLESTEROL 22 mg/dL (29-60)
[2018-08-20 07:19] LABS: LDL CHOLESTEROL 89 mg/dL (0-129)
[2018-08-20] MEDS: Arformoterol 15 mcg/2 ml Inh Sol IH SCH (07:19)
[2018-08-20] MEDS: Budesonide 0.5 mg/2 ml Inhal Susp UD IH SCH ×2 (07:19→19:30)
[2018-08-20] MEDS: oxyCODONE 20 mg ER Tab (oxyCONTIN) PO SCH ×2 (10:28→21:33)
[2018-08-20] MEDS: cefTRIAXone 1 gm 1 GM/100 ML BAG IVPB SCH (11:13)
--- NOTE | 2018-08-20 13:11 | PN ---
DATE: 08/20/2018 REASON FOR CONSULTATION: Followup cardiac evaluation, rule out arrhythmia. SUBJECTIVE: The patient denies chest pain, shortness of breath, or any palpitation. OBJECTIVE: GENERAL: Not in apparent distress. VITAL SIGNS: Temperature afebrile, heart rate 80, blood pressure 157/75. HEENT: PERRLA, extraocular muscles intact. NECK: Supple, no carotid bruit or thyromegaly. CHEST: Clear to auscultation. HEART: S1, S2 regular. ABDOMEN: Soft. EXTREMITIES: Clubbing and cyanosis negative. LABORATORY DATA: Blood workup as follow: WBC 8.6, hemoglobin 10.2, hematocrit 31.7, platelet count 187. Chemistry shows sodium 139, potassium 4, chloride 105, CO2 of 28, anion gap of 10, BUN 23, and creatinine 0.9. The patient's last echocardiography done on 01/23/2018 revealed ejection 50%, left atrial moderately dilated, LV systolic function is normal, right atrium is normal. Aortic valve thickened, calcification, opens well, trace mitral regurgitation, mild annulus calcification, tricuspid structures are normal, trace tricuspid regurgitation, RV systolic pressure is 29. ASSESSMENT AND PLAN: This is a 78-year-old male with past medical history significant for chronic obstructive pulmonary disease, asthma, bronchitis, hypertension, unsteady gait, found yesterday on the floor, fell down. The patient is getting rehab. This morning while the patient was getting rehab, heart rate went transiently to 140 and then back to normal. RECOMMENDATION: We will increase beta tonja, going back into SVT. We will discontinue metoprolol succinate and increase to 50 b.i.d., first dose of 25 now again and since the patient got metoprolol succinate 25 in the morning, we will start 50 b.i.d. metoprolol tartrate and first dose at 6 p.m.. We will follow with you. Thank you Dr. Amanda for providing us the opportunity in taking care of the patient, Spencer Scales. Raghu Wilde MD
[2018-08-20 16:33] VITALS: RESP 18
[2018-08-20] MEDS: oxyCODONE 5 mg Immediate Release Tab PO PRN (17:42)
--- NOTE | 2018-08-20 17:52 | PN ---
DATE: 08/20/2018 SUBJECTIVE: The patient is 78 years old, seen and examined, doing much better, much more awake and alert, eating and tolerating. PHYSICAL EXAMINATION VITAL SIGNS: He is afebrile. Pulse 80, respirations 20, blood pressure 157/75. LUNGS: Bilateral fair airflow. No rhonchi or crackles. HEART: S1 and S2 audible. ABDOMEN: Soft, nontender. No rebound. No guarding. NEUROLOGIC: The patient is awake and alert, able to communicate, has difficulty ambulating, difficulty getting out of bed because of chronic severe back pain. EXTREMITIES: Bilateral legs, no edema. LABORATORY DATA: WBC 8.6, hemoglobin 10.3, hematocrit 31.7, platelets of 187. Chemistry; sodium 139, potassium 4.1, chloride 105, CO2 of 28, BUN 23, creatinine 0.9, blood sugar 112. ASSESSMENT 1. Bilateral multifocal pneumonia. 2. Severe degenerative disc disease. 3. Status post fall. 4. Deconditioning and difficulty walking. PLAN: We will continue the patient on Brovana. He is on doxycycline, aspirin 81 mg daily. Continue him on lisinopril. He is on metoprolol. Continue him on gabapentin. He is on narcotics that he was being maintained even prior to coming to the hospital. Awaiting for physical therapy evaluation and protective services social worker are in the process of making arrangement to transfer him to on postop care. Gio Amanda MD
[2018-08-20] MEDS: Albuterol-Ipratrop 3 mg / 0.5 (3 ml) UD IH SCH (19:30)
[2018-08-21] MEDS: Albuterol-Ipratrop 3 mg / 0.5 (3 ml) UD IH SCH ×2 (03:05→07:31)
[2018-08-21] MEDS: oxyCODONE 5 mg Immediate Release Tab PO PRN (06:42)
[2018-08-21] MEDS: Budesonide 0.5 mg/2 ml Inhal Susp UD IH SCH ×2 (07:31→11:31)
[2018-08-21] MEDS: Levothyroxine 50 MCG TAB PO SCH (08:18)
--- NOTE | 2018-08-21 08:23 | CP.PCM.PN ---
Subjective - Date & Time of Evaluation Date of Evaluation: 08/21/18 Time of Evaluation: 06:55 - Subjective Subjective: Awake, alert, complaining of left side neck pain Reason for consultation and follow up: Cardiac evaluation, rule out arrythmia, history of COPD, asthma, bronchitis, hypertension Seen and examined by me and Dr. Wilde Objective - Vital Signs/Intake and Output Vital Signs (last 24 hours): Temp Pulse Resp BP Pulse Ox 97.6 F 102 H 18 118/64 90 L 08/20/18 16:32 08/21/18 08:14 08/20/18 16:32 08/20/18 17:42 08/20/18 16:32 Intake and Output: 08/21/18 08/21/18 06:59 18:59 Intake Total 500 Output Total 200 200 Balance 300 -200 - Medications Medications: Current Medications Albuterol/Ipratropium (Duoneb 3 Mg/0.5 Mg (3 Ml) Ud) 3 ml IH [id number] [facility] Last Admin: 08/21/18 07:31 Dose: 3 ml Alprazolam (Xanax) 0.25 mg PO TID PRN; Protocol PRN Reason: Anxiety Stop: 08/25/18 10:01 Last Admin: 08/20/18 18:18 Dose: 0.25 mg Aspirin (Ecotrin) 81 mg PO DAILY [facility] Last Admin: 08/20/18 11:13 Dose: 81 mg Atorvastatin Calcium (Lipitor) 10 mg PO HS [facility] Last Admin: 08/20/18 21:33 Dose: 10 mg Budesonide (Pulmicort Respules) 0.5 mg IH BID [facility] Last Admin: 08/21/18 07:31 Dose: 0.5 mg Doxycycline Hyclate (Doryx) 100 mg PO Q12 [facility] Last Admin: 08/20/18 21:31 Dose: 100 mg Escitalopram Oxalate (Lexapro) 20 mg PO DAILY [facility] Last Admin: 08/20/18 11:11 Dose: 20 mg Gabapentin (Neurontin) 800 mg PO BID [facility]; Protocol Last Admin: 08/20/18 17:41 Dose: 800 mg Ceftriaxone Sodium (Rocephin 1 Gram Ivpb) 1 gm in 100 mls @ 100 mls/hr IVPB DAILY [facility]; Protocol Last Admin: 08/20/18 11:13 Dose: 100 mls/hr Levothyroxine Sodium (Synthroid) 50 mcg PO ACB [facility] Last Admin: 08/20/18 06:36 Dose: 50 mcg Metoprolol Tartrate (Lopressor) 50 mg PO BID [facility] Last Admin: 08/20/18 17:42 Dose: 50 mg Oxycodone HCl (Oxycodone Immediate Release Tab) 5 mg PO BID PRN PRN Reason: Pain, moderate (4-7) Last Admin: 08/21/18 06:42 Dose: 5 mg Oxycodone HCl (Oxycontin Extended Release Tab) 40 mg PO Q12 [facility] Last Admin: 08/20/18 21:33 Dose: 40 mg - Labs Labs: 08/20/18 06:20 08/20/18 06:20 - Constitutional Appears: Non-toxic, No Acute Distress - Head Exam Head Exam: NORMAL INSPECTION, NORMOCEPHALIC - ENT Exam Additional comments: left side neck pain - Respiratory Exam Respiratory Exam: Decreased Breath Sounds, Clear to Ausculation Bilateral, NORMAL BREATHING PATTERN - Cardiovascular Exam Cardiovascular Exam: REGULAR RHYTHM, +S1, +S2 - GI/Abdominal Exam GI & Abdominal Exam: Soft, Normal Bowel Sounds - Extremities Exam Extremities Exam: Full ROM, Normal Capillary Refill - Neurological Exam Neurological Exam: Alert, Awake, Oriented x3 - Psychiatric Exam Psychiatric exam: Normal Affect, Normal Mood - Skin Skin Exam: Dry, Normal Color, Warm Assessment and Plan - Assessment and Plan (Free Text) Assessment: A 78 year old male who came in to the ER due to generalized weakness. Patient was having rehab when heart rate went up to 140's, sinus tachycardia and spontaneously went down to NSR. History of hypertension,COPD, asthma, bronchitis,hypertension, unsteady gait, fall, peptic ulcer disease, anxiety, hyperlipidemia, DJD. Echo done on 01/2018 showed LVEF 62%, trace MR/TR. On betablocker to control heart rate. Plan: No distress Heart rate controlled, on Lopressor Change albuterol to Xopenex to prevent further tachycardia Blood pressure uncontrolled Norvasc 10 mg daily On ASA 81 mg daily, Lipitor 10 mg daily,Synthroid 50 mcg daily Lopressor 50 mg BID Continue current medications Continue current treatment Will follow up Plan and treatment discussed with Dr. Wilde
[2018-08-21 08:26] VITALS: O2SAT 93
[2018-08-21] MEDS: oxyCODONE 20 mg ER Tab (oxyCONTIN) PO SCH ×2 (08:35→09:06)
[2018-08-21] MEDS ORDERED: Levalbuterol 0.63 MG/3 ML Inhal Soln UD IH PRN (08:38)
[2018-08-21] MEDS: Metoprolol Succinate 25 mg XL Tab PO SCH (09:06)
--- NOTE | 2018-08-21 09:10 | CON ---
DATE OF CONSULTATION: 08/21/2018 PULMONARY CONSULTATION REASON FOR CONSULTATION: Chronic obstructive pulmonary disease. REFERRING PHYSICIAN: Dr. Amanda. HISTORY OF PRESENT ILLNESS: The patient is a 78-year-old male, well-known to me from office, with a history of chronic obstructive pulmonary disease, hypertension, hyperlipidemia, chronic back problems/surgeries, thyroid disease, peptic ulcer disease, who presented to [facility] - originally on 08/17/2018 - after the daughter found the patient on the floor. Apparently, he was incontinent of urine and bowel, and was on the floor covered in feces and urine. Emergency Medical Services were then called, and transferred the patient to the emergency room. In the emergency room, the patient was noted to have a lower lobe pneumonia. He was thus admitted for additional evaluation. The patient is not short of breath at rest this morning. He does have chronic occasional dyspnea. As per the emergency room notes, the patient also had a cough with sputum production - preceding his admission. There is no history of chest pain, coughing up of blood, or chest pain - made worse with deep respirations. The patient did present to the emergency room with low-grade fevers (99). No history of chills or infectious exposure. No history of night sweats, weight loss, or appetite change prior to the above events. No history of calf pains. No history of syncope or diaphoresis. No history of recent travel. REVIEW OF SYSTEMS: No history of nausea, vomiting, or diarrhea. No history of abdominal pain. The patient does state to chronic back and neck pain. Rest of the review of systems is noncontributory. ALLERGIES: ERYTHROMYCIN. SOCIAL HISTORY: Positive for tobacco, negative for alcohol. FAMILY HISTORY: No inheritable diseases. MEDICATIONS: Home medications include Xanax, prednisone, aspirin, Ventolin, budesonide, Neurontin, DuoNebs, oxycodone, metoprolol, Synthroid, Nexium, Lexapro, Celebrex. PHYSICAL EXAMINATION: GENERAL: The patient appears comfortable this morning. He is not short of breath at rest. He is not using accessory muscles for breathing. VITAL SIGNS: Temperature is 97.6, pulse 84, respirations 18, blood pressure 118/64. Oxygen saturation on room air - 90%. Oxygen saturation on nasal cannula - 95%. HEENT: Normocephalic, atraumatic. NECK: No JVD. CARDIOVASCULAR: Positive S1, S2. No S3 gallop. LUNGS: Decreased breath sounds with crackles at the bases. Mild bilateral rhonchi. No wheezing. EXTREMITIES: No clubbing, cyanosis or edema. Calves are nontender to palpation. GASTROINTESTINAL: Abdomen is soft, nontender and nondistended. Bowel sounds are positive. SKIN: No acute rash. NEUROLOGIC: Exam limited at the present time. PERTINENT LABORATORY DATA: CAT scan of the chest was done on 08/18/2018 and reviewed. There are bilateral lower lobe infiltrates noted (right worse than left). A previously noted 9 mm nodule in the right lower lobe - is obscured by the consolidation. There are scattered areas of scarring also noted. There is no significant lymphadenopathy. CBC: White count 8.6K, hemoglobin 10.3, hematocrit 31.7, platelets of 187,000. Initial white count 16.3K. Complete metabolic profile: BUN 23, glucose 112. Rest of the metabolic profile is within normal limits. IMPRESSION: 1. Bilateral pneumonia. 2. Chronic obstructive pulmonary disease. 3. Severe degenerative disk disease. 4. Status post fall at home. 5. Anemia. PLAN: The patient presents to the [facility] - originally on 08/17/2018 - after he was found on the floor by his daughter. Apparently, the patient was covered in feces and urine. The daughter quickly called Emergency Medical Services, and the patient was transported to [facility]. I did review the CAT scan of the chest. Findings are noted above. I would continue with the current antibiotic therapy for now. Temperatures have fully resolved. The leukocytosis has also fully resolved. On physical exam, there is only mild bronchospasm noted. However, there is a mild to moderate increase in the alveolar arterial gradient. I will continue the patient on DuoNeb treatments and inhaled Pulmicort - started yesterday. Inputs by Neurology, Gastroenterology, and Cardiology are also noted. Clinical status of the patient certainly appears much improved - compared to the initial presentation. However, given the above, the future status/prognosis for this patient does remain guarded. I will discuss the above with Dr. Amanda this morning. Thank you very much for this pulmonary consultation. Luis Antonio Juares MD [facility] # [id number] [facility]
[2018-08-21] MEDS: cefTRIAXone 1 gm 1 GM/100 ML BAG IVPB SCH (09:18)
[2018-08-21] MEDS ORDERED: oxyCODONE 20 mg ER Tab (oxyCONTIN) PO SCH (11:50)
[2018-08-21 12:24] VITALS: BP 159/82; TEMP 98
[2018-08-21 15:21] VITALS: PULSE 77
--- NOTE | 2018-08-22 08:24 | DS ---
HISTORY OF PRESENT ILLNESS: The patient is 78-year-old, who came into the increasing cough and congestion. According to daughter, he has been increasingly weak. He has been falling his clothing as no control on urine or bowel, so she brought him to emergency room for further evaluation. He was found to have multifocal pneumonia. Started on IV antibiotics and doing well. PAST MEDICAL HISTORY: He has significant past medical history of: 1. Hypertension. 2. Severe degenerative disc disease. 3. COPD. The patient seems to be comfortable. Now he is being transferred to [facility] today. PHYSICAL EXAMINATION: GENERAL: He is much awake and alert. No respiratory distress. VITAL SIGNS: He is afebrile, pulse 93, respirations 18, and blood pressure 150/80. LUNGS: Bilateral fair airflow. rhonchi. HEART: S1 and S2 audible. ABDOMEN: Soft and nontender. No rebound. No guarding. NEUROLOGIC: The patient is awake and alert, able to communicate. Complain of pain in the lower back and legs when he ambulates. LABORATORY EXAMINATION: Thyroid profile is negative. Urinalysis is unremarkable. Blood cultures are negative. ASSESSMENT: 1. Bilateral pneumonia. 2. Severe degenerative disc disease. 3. Multifocal pneumonia. 4. Deconditioning and difficulty walking. PLAN: The patient is getting 40 mg of MS Contin, 40 mg twice a day and he is getting 5 mg every 6 hours p.r.n. for breakthrough pain. Currently, he is on doxycycline, aspirin 81 daily. He is on Lexapro. He is on atorvastatin, metoprolol, gabapentin, amlodipine. He is on oxycodone. He is on Pulmicort. He is getting Rocephin. He is continued on levothyroxine. He will be transferred to [facility]. We will take care of him. Gio Amanda MD
== END 2018-08-21 19:34 | DRG 194 ==
LOC: ED 17:30 → ERH 22:59 → 3RSO 08-18 00:04
PROVIDERS: ADMIT Internal Medicine; ATTEND Internal Medicine
DX: J18.9 Pneumonia, unspecified organism (principal); J44.0 Chronic obstructive pulmonary disease with (acute) lower respiratory infection; I47.1 Supraventricular tachycardia; N17.9 Acute kidney failure, unspecified; I11.0 Hypertensive heart disease with heart failure; I50.9 Heart failure, unspecified; K57.30 Diverticulosis of large intestine without perforation or abscess without bleeding; E86.0 Dehydration; M51.17 Intervertebral disc disorders with radiculopathy, lumbosacral region; M51.36 Other intervertebral disc degeneration, lumbar region; M43.17 Spondylolisthesis, lumbosacral region; D64.9 Anemia, unspecified; M51.37 Other intervertebral disc degeneration, lumbosacral region; M48.07 Spinal stenosis, lumbosacral region; R15.9 Full incontinence of feces; R32 Unspecified urinary incontinence; G89.29 Other chronic pain; R29.6 Repeated falls; E03.9 Hypothyroidism, unspecified; E78.5 Hyperlipidemia, unspecified; F41.9 Anxiety disorder, unspecified; G40.909 Epilepsy, unspecified, not intractable, without status epilepticus; M41.9 Scoliosis, unspecified; K59.03 Drug induced constipation; T40.605A Adverse effect of unspecified narcotics, initial encounter; Z79.891 Long term (current) use of opiate analgesic; Z87.891 Personal history of nicotine dependence; Z87.11 Personal history of peptic ulcer disease; Z79.82 Long term (current) use of aspirin

== ENCOUNTER 2018-10-06 11:27 | Inpatient (IN) | payer MEDICARE ==
[2018-10-06] MEDS ORDERED: Lidocaine 5% Patch TD STA (12:08)
[2018-10-06] MEDS ORDERED: Morphine 2 mg/ml ISec IVP STA ×2 (12:08→13:05)
--- NOTE | 2018-10-06 12:13 | ED PDOC ---
Arrival/HPI - General Chief Complaint: Hip Pain Time Seen by Provider: 10/06/18 11:32 Historian: Patient - History of Present Illness Narrative History of Present Illness (Text): 13:11 78 y/o male with PMH of HTN, COPD, osteoporosis, chronic back pain, presents to the ED c/o lower back and bilateral hip pain s/p witnessed mechanical fall 2 days ago. Pt was attempted to move his recliner with his cane when the cane collapsed and the patient fell backwards. He experienced immediate pain to lumbar spine and bilateral hips, but the pain has not resolved, prompting visit to ED with daughter. Denies headstrike or LOC. Pt does not take anticoagulants. Pt states his typical pain medications have not been relieving his pain, last dose 07:30 this morning. Denies extremity numbness/weakness/paresthesias, neck pain, saddle anesthesia, bowel/bladder incontinence, chest pain, SOB, headache, vision changes, dizziness, mental status changes, nausea, vomiting, or any other associated symptoms. Past Medical History - Provider Review Nursing Documentation Reviewed: Yes - Infectious Disease Hx of Infectious Diseases: None - Cardiac Hx Cardiac Disorders: Yes Hx Hypertension: Yes - Pulmonary Hx Chronic Obstructive Pulmonary Disease (COPD): Yes - Neurological Hx Neurological Disorder: No - HEENT Hx HEENT Disorder: Yes (reading glasses) - Renal Hx Renal Disorder: No - Endocrine/Metabolic Hx Hypothyroidism: Yes - Hematological/Oncological Hx Blood Disorders: No - Integumentary Hx Dermatological Disorder: No - Musculoskeletal/Rheumatological Hx Falls: Yes - Gastrointestinal Hx Gastrointestinal Disorders: Yes Hx Gastrointestinal Ulcer: Yes - Genitourinary/Gynecological Hx Genitourinary Disorders: No - Psychiatric Hx Psychophysiologic Disorder: No Hx Substance Use: No - Anesthesia Hx Anesthesia Reactions: No Hx Malignant Hyperthermia: No Family/Social History - Physician Review Nursing Documentation Reviewed: Yes Family/Social History: No Known Family HX Smoking Status: Former Smoker Hx Alcohol Use: No Hx Substance Use: No Allergies/Home Meds Allergies/Adverse Reactions: Allergies erythromycin base Allergy (Verified 10/06/18 11:32) FEVER Home Medications: Home Meds Medication Instructions Recorded Confirmed Alprazolam [Xanax] 0.25 mg PO PRN PRN 01/10/16 10/06/18 Aspirin [Ecotrin] 81 mg PO DAILY 01/10/16 10/06/18 Celecoxib [CeleBREX] 200 mg PO BID 01/10/16 10/06/18 Cholecalciferol (Vitamin D3) 5,000 iu PO DAILY 01/10/16 10/06/18 [D3-5000 90 mg-5000 Iu] Escitalopram [Lexapro] 20 mg PO DAILY 01/10/16 10/06/18 Esomeprazole Magnesium [Nexium] 40 mg PO DAILY 01/10/16 10/06/18 Gabapentin [Neurontin] 800 mg PO TID 01/10/16 10/06/18 Levothyroxine [Synthroid] 50 mcg PO QAM 01/10/16 10/06/18 Metoprolol Succinate 25 mg PO DAILY 01/10/16 10/06/18 [place]-3 Acid Ethyl Esters [Lovaza] 1 gm PO BID 01/10/16 10/06/18 Oxycodone HCl [Oxycodone HCl ER] 40 mg PO BID PRN 01/10/16 10/06/18 Simvastatin 10 mg PO DAILY 01/10/16 10/06/18 oxyCODONE [oxyCODONE Immediate 5 mg PO BID PRN 01/10/16 10/06/18 Release Tab] Albuterol HFA [Ventolin HFA 90 1 puff IH Q6H 08/17/18 10/06/18 mcg/actuation (8 g)] Albuterol/Ipratropium [Duoneb 3 1 vial IH QID 08/17/18 10/06/18 mg/0.5 mg (3 ml) UD] Budesonide [Pulmicort Respules] 1 vial IH BID 08/17/18 10/06/18 Review of Systems - Review of Systems Constitutional: Normal. absent: Fatigue, Fevers Eyes: Normal. absent: Vision Changes, Photophobia, Eye Pain ENT: Normal. absent: Sore Throat, Sinus Congestion Respiratory: Normal. absent: SOB Cardiovascular: Normal. absent: Chest Pain, Palpitations, Syncope Gastrointestinal: Normal. absent: Abdominal Pain, Nausea, Vomiting Genitourinary Male: Normal. absent: Dysuria, Frequency, Other (no saddle anesthesia or bowel/bladder incontinence) Musculoskeletal: Back Pain, Other (bilateral hip pain). absent: Neck Pain Skin: Normal. absent: Rash, Other (ecchymosis) Neurological: Gait Changes. absent: Headache, Dizziness, Focal Weakness, Speech Changes, Facial Droop, Disequilibrium Physical Exam Vital Signs Reviewed: Yes Vital Signs Temp Pulse Resp BP Pulse Ox 10/06/18 11:37 98.1 F 68 18 185/94 H 93 L Temperature: Afebrile Blood Pressure: Hypertensive Pulse: Regular Respiratory Rate: Normal Appearance: Positive for: Non-Toxic, Uncomfortable Pain Distress: Mild Mental Status: Positive for: Alert and Oriented X 3 - Systems Exam Head: Present: Atraumatic, Normocephalic. No: Tenderness, Contusion, Abrasion, Laceration Pupils: Present: PERRL Extroacular Muscles: Present: EOMI Conjunctiva: Present: Normal Mouth: Present: Moist Mucous Membranes Neck: Present: Normal Range of Motion. No: Meningeal Signs, MIDLINE TENDERNESS, Paraspinal Tenderness Respiratory/Chest: Present: Good Air Exchange. No: Respiratory Distress, Accessory Muscle Use Cardiovascular: Present: Regular Rate and Rhythm, Normal S1, S2, Peripheal Pulses Present Abdomen: No: Tenderness, Distention, Peritoneal Signs Back: Present: Normal Inspection, Midline Tenderness (lumbar L1-4), Paraspinal Tenderness (bilateral lumbar), Pain with Leg Raise (bilateral). No: CVA Tenderness Upper Extremity: Present: Normal Inspection, Normal ROM, NORMAL PULSES, Neurovascularly Intact, Capillary Refill < 2s. No: Cyanosis, Edema, Temperature Abnormalties Lower Extremity: Present: Normal Inspection, NORMAL PULSES, Normal ROM, Tenderness (bilateral lateral hip pain), Neurovascularly Intact, Capillary R efill < 2 s. No: Edema, Temperature Abnormalties Neurological: Present: GCS=15, Speech Normal, Motor Func Grossly Intact, Normal Sensory Function Skin: Present: Warm, Dry, Normal Color. No: Rashes, Laceration, Abrasion, Other (ecchymosis) Psychiatric: Present: Alert, Oriented x 3, Normal Insight, Normal Concentration, Normal Affect, Normal Mood Medical Decision Making ED Course and Treatment: Initial Plan: * CT Bilateral Hips * CT Lumbar Spine * Morphine * Lidoderm Patch 13:09 Patient's pain not relieved, more morphine ordered. 13:40 CT hip and pelvis negative for acute fracture CT lumbar spine shows L2 compression fracture with mild bony retropulsion. Pt unable to ambulate, will call neurosurgery and Dr. Amanda for inpatient admission. Admission labs and EKG ordered. 14:[address] Valenzuela and informed him of diagnostic testing results. States there is no emergent intervention indicated. Recommends pain control and TLSO brace if possible. 14:31 Hydralazine ordered for elevated BP. Pt did not take his BP medication today. Bloodwork reviewed, unremarkable. 14:[address] Bah, covering for Dr. Amanda who accepted patient onto his service to med/surg floor with diagnoses of L2 compression fracture with retropulsion, and inability to ambulate. Recommends 4mg IVP Morphine. Pt and family updated on change in disposition. 15:13 Pressure has improved with hydralazine. - Lab Interpretations Lab Results: 10/06/18 12:20 10/06/18 12:20 Lab Results 10/06/18 14:30: Blood Type O POSITIVE, Antibody Screen Negative, BBK History Checked No verified bt 10/06/18 12:20: Sodium 139, Potassium 3.6, Chloride 103, Carbon Dioxide 25, Anion Gap 15, BUN 18, Creatinine 0.9, Est GFR ( Amer) > 60, Est GFR (Non- Af Amer) > 60, Random Glucose 95, Calcium 8.9, Total Bilirubin 1.4 H, AST 26, ALT 11, Alkaline Phosphatase 83, Total Protein 8.3, Albumin 3.9, Globulin 4.4, Albumin/Globulin Ratio 0.9 L 10/06/18 12:20: PT 12.8 H, INR 1.15, APTT 28.4 10/06/18 12:20: WBC 6.3 D, RBC 3.66, Hgb 11.5 L, Hct 34.8 L, MCV 95.1, MCH 31.4, MCHC 33.0, RDW 13.2, Plt Count 163, MPV 9.4, Neut % (Auto) 72.8 H, Lymph % (Auto) 13.1 L, [place] % (Auto) 11.2 H, Eos % (Auto) 2.7, Baso % (Auto) 0.2, Lymph # (Auto) 0.8 L, [place] # (Auto) 0.7 H, Eos # (Auto) 0.2, Baso # (Auto) 0.01, Absolute Neuts (auto) 4.56 I have reviewed the lab results: Yes - RAD Interpretation Narrative RAD Interpretations (Text): 13:31 CT Lumbar Spine: FINDINGS: Acute osseous demineralization limits evaluation. There is stable levoconvex curvature of the lumbar spine centered at L3-4. Acute vertebral compression fracture of L2 is identified with mild bony retropulsion. Multilevel spinal degenerative changes are unchanged characterized by vertebral body and intervertebral disc space height loss with disc osteophyte complex formation vacuum disc phenomenon, most prominent at L4-5 and L5-S1. Limited evaluation of the intra-abdominal contents demonstrate chronic changes. IMPRESSION: Acute L2 vertebral compression fracture with mild bony retropulsion. CT Hip Bilateral with Pelvis: FINDINGS: BONES: Levoconvex spinal curvature. Multilevel spinal degenerative changes with disc osteophyte complexes and vacuum disc phenomenon. Extensive facet hypertrophy/arthropathy. No acute pelvic fracture. Bilateral hip joint space narrowing osteophytic changes. SOFT TISSUES: Colonic diverticulosis. No diverticulitis. No bowel wall thickening. Small fat containing umbilical hernia. Arterial atherosclerotic calcifications. Small left fat containing inguinal hernia. IMPRESSION: Multilevel spinal and bilateral hip degenerative changes. No acute fracture. Radiology Orders: 10/06/18 12:02 CT HIP W/O CONTRAST BILATERAL [CT] Stat LUMBAR SPINE W/O CONTRAST [CT] Stat Supervisor Body Assembly: Radiologist - EKG Interpretation EKG Interpretation (Text): Rate 69; NSR; Normal intervals; No STEMI or other signs of acute ischemia Interpreted by ED Physician: Yes Type: 12 lead EKG Disposition/Present on Arrival - Present on Arrival Any Indicators Present on Arrival: No History of DVT/PE: No History of Uncontrolled Diabetes: No Urinary Catheter: No History of Decub. Ulcer: No History Surgical Site Infection Following: None - Disposition Have Diagnosis and Disposition been Completed?: Yes Diagnosis: Compression fracture of L2 lumbar vertebra, Impaired ambulation Disposition: HOSPITALIZED Disposition Time: 14:20 Patient Plan: Admission Patient Problems: Current Active Problems Problem Status Onset Compression fracture of L2 lumbar vertebra Acute Impaired ambulation Acute Condition: STABLE
--- NOTE | 2018-10-06 13:31 | CT ---
Date of service: 10/06/2018 PROCEDURE: CT of the bilateral hip. HISTORY: fall 2 days ago, bilateral hip pain COMPARISON: Correlations made to CT scan of the abdomen pelvis dated 08/17/2018 TECHNIQUE: Contiguous axial images of the bilateral hip were obtained. Coronal and sagittal reformats were generated. Radiation dose: Total exam DLP = 576.69 mGy-cm. This CT exam was performed using one or more of the following dose reduction techniques: Automated exposure control, adjustment of the mA and/or kV according to patient size, and/or use of iterative reconstruction technique. FINDINGS: BONES: Levoconvex spinal curvature. Multilevel spinal degenerative changes with disc osteophyte complexes and vacuum disc phenomenon. Extensive facet hypertrophy/arthropathy. No acute pelvic fracture. Bilateral hip joint space narrowing osteophytic changes. SOFT TISSUES: Colonic diverticulosis. No diverticulitis. No bowel wall thickening. Small fat containing umbilical hernia. Arterial atherosclerotic calcifications. Small left fat containing inguinal hernia. IMPRESSION: Multilevel spinal and bilateral hip degenerative changes. No acute fracture.
--- NOTE | 2018-10-06 13:41 | CT ---
Date of service: 10/06/2018 PROCEDURE: CT Lumbar Spine without contrast HISTORY: fall 2 days ago, lower back pain COMPARISON: CT lumbar spine dated 08/17/2018. TECHNIQUE: Axial computed tomography images were obtained of the lumbar spine without the use of intravenous contrast. Coronal and sagittal reformatted images were created and reviewed. Radiation dose: Total exam DLP = 634.83 mGy-cm. This CT exam was performed using one or more of the following dose reduction techniques: Automated exposure control, adjustment of the mA and/or kV according to patient size, and/or use of iterative reconstruction technique. FINDINGS: Acute osseous demineralization limits evaluation. There is stable levoconvex curvature of the lumbar spine centered at L3-4. Acute vertebral compression fracture of L2 is identified with mild bony retropulsion. Multilevel spinal degenerative changes are unchanged characterized by vertebral body and intervertebral disc space height loss with disc osteophyte complex formation vacuum disc phenomenon, most prominent at L4-5 and L5-S1. Limited evaluation of the intra-abdominal contents demonstrate chronic changes. IMPRESSION: Acute L2 vertebral compression fracture with mild bony retropulsion.
[2018-10-06 14:13] LABS: BASO # 0.01 K/mm3 (0.0-2.0); BASO % 0.2 % (0.0-3.0); EOS # 0.2 (0.0-0.7); EOS % 2.7 % (1.5-5.0); HEMOGLOBIN 11.5 g/dL (14.0-18.0); LYMPH # 0.8 (1.2-3.4); LYMPH % 13.1 % (22.0-35.0); MEAN CELL VOLUME 95.1 fl (80.0-105.0); MEAN CORPUSCULAR HEMOGLOBIN 31.4 pg (25.0-35.0); MEAN PLATELET VOLUME 9.4 fl (7.0-11.0); MONO # 0.7 (0.1-0.6); MONO % 11.2 % (1.0-6.0); RBC 3.66 10^6/uL (3.5-6.1); RED CELL DISTRIBUTION WIDTH 13.2 % (11.5-14.5); WHITE BLOOD COUNT 6.3 10^3/uL (4.5-11.0)
[2018-10-06 14:24] LABS: INR 1.15; PROTHROMBIN TIME 12.8 SECONDS (9.4-12.5)
[2018-10-06 14:25] LABS: PARTIAL THROMBOPLASTIN TIME 28.4 Seconds (26.9-38.3)
[2018-10-06 14:35] LABS: ALB/GLOB RATIO 0.9 (1.1-1.8); ALBUMIN 3.9 g/dL (3.0-4.8); AST/SGOT 26 U/L (17-59); BLOOD UREA NITROGEN 18 mg/dL (7-21); CALCIUM 8.9 mg/dL (8.4-10.5); GFR NON-AFRICAN AMERICAN > 60
[2018-10-06] MEDS ORDERED: Morphine 4 mg/ml ISec IVP STA (14:44)
[2018-10-06 15:04] LABS: ALT/SGPT 11 U/L (7-56)
[2018-10-06 15:35] VITALS: BMI 22.5
[2018-10-06] MEDS ORDERED: oxyCODONE 5 mg Immediate Release Tab PO PRN (16:51)
[2018-10-06] MEDS ORDERED: Metoprolol Succinate 25 mg XL Tab PO STA (17:26)
[2018-10-06] MEDS: Morphine 2 mg/ml ISec IVP PRN (17:36)
[2018-10-06] MEDS ORDERED: OXYCODONE HCL 40 MG PO SCH (19:00)
[2018-10-06] MEDS: oxyCODONE 20 mg ER Tab (oxyCONTIN) PO SCH (21:18)
[2018-10-06] MEDS ORDERED: Non Formulary Medication (Simvastatin [Simvastatin] 10 MG) PO SCH (22:00)
[2018-10-07] MEDS: Morphine 2 mg/ml ISec IVP PRN (04:32)
[2018-10-07] MEDS: Levothyroxine 50 MCG TAB PO SCH ×2 (08:11→10:15)
[2018-10-07] MEDS: oxyCODONE 20 mg ER Tab (oxyCONTIN) PO SCH ×2 (08:11→21:19)
[2018-10-07] MEDS ORDERED: Morphine 2 mg/ml ISec IVP PRN (09:52)
[2018-10-07] MEDS: Metoprolol Succinate 25 mg XL Tab PO SCH (10:33)
[2018-10-07] MEDS: Morphine 4 mg/ml ISec IVP PRN ×2 (10:35→17:10)
--- NOTE | 2018-10-07 11:17 | CP.PCM.CON ---
History of Present Illness - History of Present Illness History of Present Illness: 78 yo m with extensive osteoporotic disease,chronic pain on high dose narcotics fell 3 d ago new L2 compression fx no neural element comprise suggest tx with inc pain meds order TLSO brace no neurosurgical intervention indicated Past Patient History - Infectious Disease Hx of Infectious Diseases: None - Past Social History Smoking Status: Former Smoker - CARDIAC Hx Cardiac Disorders: Yes Hx Hypertension: Yes - PULMONARY Hx Chronic Obstructive Pulmonary Disease (COPD): Yes - NEUROLOGICAL Hx Neurological Disorder: No - HEENT Hx HEENT Problems: Yes (reading glasses) - RENAL Hx Chronic Kidney Disease: No - ENDOCRINE/METABOLIC Hx Hypothyroidism: Yes - HEMATOLOGICAL/ONCOLOGICAL Hx Blood Disorders: No - INTEGUMENTARY Hx Dermatological Problems: No - MUSCULOSKELETAL/RHEUMATOLOGICAL Hx Falls: Yes - GASTROINTESTINAL Hx Gastrointestinal Disorders: Yes - GENITOURINARY/GYNECOLOGICAL Hx Genitourinary Disorders: No - PSYCHIATRIC Hx Psychophysiologic Disorder: No Hx Substance Use: No - SURGICAL HISTORY Hx Surgeries: Yes (back sx x2) - ANESTHESIA Hx Anesthesia Reactions: No Hx Malignant Hyperthermia: No Meds Allergies/Adverse Reactions: Allergies Allergy/AdvReac Type Severity Reaction Status Date / Time erythromycin base Allergy FEVER Verified 10/06/18 11:32 - Medications Medications: Current Medications Aspirin (Ecotrin) 81 mg PO DAILY [facility] Last Admin: 10/07/18 10:34 Dose: 81 mg Atorvastatin Calcium (Lipitor) 10 mg PO HS [facility] Last Admin: 10/06/18 21:17 Dose: 10 mg Escitalopram Oxalate (Lexapro) 20 mg PO DAILY [facility] Last Admin: 10/07/18 10:34 Dose: 20 mg Gabapentin (Neurontin) 800 mg PO TID [facility]; Protocol Last Admin: 10/07/18 10:34 Dose: 800 mg Hydralazine HCl (Apresoline) 10 mg IVP STAT [facility] Last Admin: 10/06/18 14:42 Dose: 10 mg Levothyroxine Sodium (Synthroid) 50 mcg PO QAM [facility] Last Admin: 10/07/18 10:15 Dose: Not Given Metoprolol Succinate (Toprol Xl) 25 mg PO DAILY [facility] Last Admin: 10/07/18 10:33 Dose: 25 mg Morphine Sulfate (Morphine) 5 mg IVP Q4H PRN PRN Reason: Pain, severe (8-10) Last Admin: 10/07/18 10:35 Dose: 5 mg Ondansetron HCl (Zofran Inj) 4 mg IVP Q6H PRN PRN Reason: Nausea/Vomiting Last Admin: 10/07/18 10:32 Dose: 4 mg Oxycodone HCl (Oxycontin Extended Release Tab) 40 mg PO 0700,1900 JOSÉ LUIS Last Admin: 10/07/18 08:11 Dose: 40 mg Oxycodone/Acetaminophen (Percocet 5/325 Mg Tab) 2 tab PO Q4H PRN PRN Reason: Pain, moderate (4-7) Stop: 10/10/18 09:53 Results - Vital Signs Recent Vital Signs: Last Vital Signs Temp 98.4 F 10/07/18 06:00 Pulse 72 10/07/18 10:33 Resp 18 10/07/18 06:00 BP 134/74 10/07/18 10:33 Pulse Ox 94 L 10/07/18 06:00 - Labs Result Diagrams: 10/06/18 12:20 10/06/18 12:20 Labs: Laboratory Results - last 24 hr 10/06/18 10/06/18 10/06/18 12:20 12:20 12:20 WBC 6.3 D RBC 3.66 Hgb 11.5 L Hct 34.8 L MCV 95.1 MCH 31.4 MCHC 33.0 RDW 13.2 Plt Count 163 MPV 9.4 Neut % (Auto) 72.8 H Lymph % (Auto) 13.1 L [place] % (Auto) 11.2 H Eos % (Auto) 2.7 Baso % (Auto) 0.2 Lymph # (Auto) 0.8 L [place] # (Auto) 0.7 H Eos # (Auto) 0.2 Baso # (Auto) 0.01 Absolute Neuts (auto) 4.56 PT 12.8 H INR 1.15 APTT 28.4 Sodium 139 Potassium 3.6 Chloride 103 Carbon Dioxide 25 Anion Gap 15 BUN 18 Creatinine 0.9 Est GFR ( Amer) > 60 Est GFR (Non-Af Amer) > 60 Random Glucose 95 Calcium 8.9 Total Bilirubin 1.4 H AST 26 ALT 11 Alkaline Phosphatase 83 Total Protein 8.3 Albumin 3.9 Globulin 4.4 Albumin/Globulin Ratio 0.9 L Blood Type Blood Type Confirm Antibody Screen BBK History Checked 10/06/18 10/06/18 14:30 16:40 WBC RBC Hgb Hct MCV MCH MCHC RDW Plt Count MPV Neut % (Auto) Lymph % (Auto) [place] % (Auto) Eos % (Auto) Baso % (Auto) Lymph # (Auto) [place] # (Auto) Eos # (Auto) Baso # (Auto) Absolute Neuts (auto) PT INR APTT Sodium Potassium Chloride Carbon Dioxide Anion Gap BUN Creatinine Est GFR ( Amer) Est GFR (Non-Af Amer) Random Glucose Calcium Total Bilirubin AST ALT Alkaline Phosphatase Total Protein Albumin Globulin Albumin/Globulin Ratio Blood Type O POSITIVE Blood Type Confirm O POSITIVE Antibody Screen Negative BBK History Checked No verified bt
--- NOTE | 2018-10-07 11:29 | CARD ---
APPROVED REPORT Date of service: 10/06/2018 EKG Measurement Heart [id number] <Conclusion> Normal sinus rhythm with sinus arrhythmia Normal ECG
--- NOTE | 2018-10-07 13:31 | CP.PCM.HP ---
<Tono Herrera - Last Filed: 10/07/18 13:25> History of Present Illness - History of Present Illness History of Present Illness: Tono Herrera D.O. PGY-3, Internal Medicine Resident, Dr. Chung's Service, H&P CC: Severe back pain and hip pain for 2 days 78-year-old male with a past medical history of hypertension, COPD, osteoporosis, chronic low back pain, anemia, hypothyroidism, and scoliosis who presented for severe back and hip pain after a fall he sustained on 10/04. Patient states that he was trying to move a recliner at home. Patient states that he was using his cane which is expandable and it caught and he fell straight on his back. Patient had immediate onset of pain at that time. Patient states that he was trying to ignore and see if it would get better but it was not. Given his discomfort he presented with his daughter. Patient at this time states that he is still in a lot of discomfort. States that the pain is worse was an 8-9 out of 10. Pain feels like it is worse in the left hip area but also feels within the lower back. Patient denies any numbness or tingling of the lower extremities or any weakness. Denies any loss of urine or feces. Also denies any fevers, chills, nausea, vomiting, diarrhea, constipation, shortness of breath, chest pain, dysuria, or any other symptoms at this time. PMH: As above PSH: Previous back surgery without hardware SH: Approximately [id number] smoking history, quit many years ago, social alc ohol in the past, denies drug use FH: Noncontributory Meds: Reviewed with patient Allergies: Erythromycin base Present on Admission - Present on Admission Any Indicators Present on Admission: No Review of Systems - Review of Systems All systems: reviewed and no additional remarkable complaints except (as per HPI) Past Patient History - Infectious Disease Hx of Infectious Diseases: None - Past Social History Smoking Status: Former Smoker - CARDIAC Hx Cardiac Disorders: Yes Hx Hypertension: Yes - PULMONARY Hx Chronic Obstructive Pulmonary Disease (COPD): Yes - NEUROLOGICAL Hx Neurological Disorder: No - HEENT Hx HEENT Problems: Yes (reading glasses) - RENAL Hx Chronic Kidney Disease: No - ENDOCRINE/METABOLIC Hx Hypothyroidism: Yes - HEMATOLOGICAL/ONCOLOGICAL Hx Blood Disorders: No - INTEGUMENTARY Hx Dermatological Problems: No - MUSCULOSKELETAL/RHEUMATOLOGICAL Hx Falls: Yes - GASTROINTESTINAL Hx Gastrointestinal Disorders: Yes - GENITOURINARY/GYNECOLOGICAL Hx Genitourinary Disorders: No - PSYCHIATRIC Hx Psychophysiologic Disorder: No Hx Substance Use: No - SURGICAL HISTORY Hx Surgeries: Yes (back sx x2) - ANESTHESIA Hx Anesthesia Reactions: No Hx Malignant Hyperthermia: No Meds Allergies/Adverse Reactions: Allergies Allergy/AdvReac Type Severity Reaction Status Date / Time erythromycin base Allergy FEVER Verified 10/06/18 11:32 Physical Exam - Constitutional Additional comments: elderly male, uncomfortable, in pain - Head Exam Head Exam: ATRAUMATIC, NORMOCEPHALIC - Eye Exam Eye Exam: EOMI. absent: Scleral icterus - ENT Exam ENT Exam: Mucous Membranes Dry, Normal Oropharynx - Neck Exam Neck exam: Positive for: Normal Inspection. Negative for: Lymphadenopathy - Respiratory Exam Respiratory Exam: Clear to Auscultation Bilateral. absent: Rales, Rhonchi, Wheezes - Cardiovascular Exam Cardiovascular Exam: RRR, +S1, +S2. absent: Gallop, Rubs - GI/Abdominal Exam GI & Abdominal Exam: Normal Bowel Sounds, Soft. absent: Distended, Tenderness - Extremities Exam Extremities exam: Positive for: normal capillary refill. Negative for: calf tenderness, pedal edema Additional comments: no pain to palpation over left or right hips - Back Exam Additional comments: point tenderness over lumbar vertebrae - Neurological Exam Neurological exam: Alert, CN II-XII Intact, Oriented x3 - Psychiatric Exam Psychiatric exam: Anxious - Skin Skin Exam: Dry, Warm Results - Vital Signs Recent Vital Signs: Last Vital Signs Temp 98.4 F 10/07/18 06:00 Pulse 72 10/07/18 10:33 Resp 18 10/07/18 06:00 BP 134/74 10/07/18 10:33 Pulse Ox 94 L 10/07/18 06:00 - Labs Result Diagrams: 10/06/18 12:20 10/06/18 12:20 Labs: Laboratory Results - last 24 hr 10/06/18 10/06/18 10/06/18 12:20 12:20 12:20 WBC 6.3 D RBC 3.66 Hgb 11.5 L Hct 34.8 L MCV 95.1 MCH 31.4 MCHC 33.0 RDW 13.2 Plt Count 163 MPV 9.4 Neut % (Auto) 72.8 H Lymph % (Auto) 13.1 L [place] % (Auto) 11.2 H Eos % (Auto) 2.7 Baso % (Auto) 0.2 Lymph # (Auto) 0.8 L [place] # (Auto) 0.7 H Eos # (Auto) 0.2 Baso # (Auto) 0.01 Absolute Neuts (auto) 4.56 PT 12.8 H INR 1.15 APTT 28.4 Sodium 139 Potassium 3.6 Chloride 103 Carbon Dioxide 25 Anion Gap 15 BUN 18 Creatinine 0.9 Est GFR ( Amer) > 60 Est GFR (Non-Af Amer) > 60 Random Glucose 95 Calcium 8.9 Total Bilirubin 1.4 H AST 26 ALT 11 Alkaline Phosphatase 83 Total Protein 8.3 Albumin 3.9 Globulin 4.4 Albumin/Globulin Ratio 0.9 L Blood Type Blood Type Confirm Antibody Screen BBK History Checked 10/06/18 10/06/18 14:30 16:40 WBC RBC Hgb Hct MCV MCH MCHC RDW Plt Count MPV Neut % (Auto) Lymph % (Auto) [place] % (Auto) Eos % (Auto) Baso % (Auto) Lymph # (Auto) [place] # (Auto) Eos # (Auto) Baso # (Auto) Absolute Neuts (auto) PT INR APTT Sodium Potassium Chloride Carbon Dioxide Anion Gap BUN Creatinine Est GFR ( Amer) Est GFR (Non-Af Amer) Random Glucose Calcium Total Bilirubin AST ALT Alkaline Phosphatase Total Protein Albumin Globulin Albumin/Globulin Ratio Blood Type O POSITIVE Blood Type Confirm O POSITIVE Antibody Screen Negative BBK History Checked No verified bt Assessment & Plan - Assessment and Plan (Free Text) Assessment: 78-year-old male with a past medical history of hypertension, COPD, osteoporosis, chronic low back pain, anemia, hypothyroidism, and scoliosis who presented for severe back and hip pain after a fall he sustained on 10/04 and found to have an L2 compression fracture. Plan: 1. L2 compression fracture 2. Hypertension 3. COPD 4. Osteoporosis 5. Chronic low back pain 6. Anemia 7. Hypothyroidism 8. Anxiety Hip CT showed multilevel spine and bilateral hip degenerative changes but no a cute fracture. Lumbar spine CT showed an acute L2 vertebral compression fracture with mild bony retropulsion. Neurosurgery was consulted and recommends no surgical intervention at this time. Consultation will be requested by IR. We will continue the patient on his home oxycodone 40 mg twice daily. Says his pain has not been well managed on current regimen we will go from oxycodone 1 tab p.o. every 6 to 2 tabs p.o. every 4 hours as needed moderate pain. We will also increase the morphine to 5 mg IV push every 4 hours as needed severe pain. We will also continue his home gabapentin for his pain. We will start the patient on Colace. Patient with some nausea, was educated on the use of alcohol aromatherapy and alcohol swabs left at bedside. Zofran as needed also ordered. Patient was started back on his metoprolol for his hypertension. For his hypothyroidism his home levothyroxine will be continued. We will also continue his aspirin and Lipitor. For his anxiety he will be continued on his home Lexapro. Physical therapy has been consulted. Will follow clinical course. Patient was seen and examined and case discussed at length with attending physician. - Date & Time Date: 10/07/18 Time: 08:10 <Justus Chung S - Last Filed: 10/07/18 16:06> Results - Vital Signs Recent Vital Signs: Last Vital Signs Temp 98.4 F 10/07/18 14:00 Pulse 66 10/07/18 15:07 Resp 19 10/07/18 14:00 BP 165/88 H 10/07/18 15:07 Pulse Ox 91 L 10/07/18 14:00 - Labs Result Diagrams: 10/06/18 12:20 10/06/18 12:20 Labs: Laboratory Results - last 24 hr 10/06/18 10/06/18 14:30 16:40 Blood Type O POSITIVE Blood Type Confirm O POSITIVE Antibody Screen Negative BBK History Checked No verified bt Assessment & Plan - Assessment and Plan (Free Text) Plan: Pt seen and examined by me. I have reviewed the note of the certified medical transcriptionist and I agree with it. I have discussed the assessment and plan with the resident. I have reviewed the medications and the last labs.
[2018-10-07] MEDS: Oxycodone/Acetaminophen 5/325 mg Tab PO PRN ×2 (15:00→23:33)
[2018-10-07] MEDS ORDERED: Metoprolol Succinate 25 mg XL Tab PO ONE (17:18)
--- NOTE | 2018-10-07 20:06 | HP ---
DATE OF EXAM: 10/07/2018 HISTORY OF PRESENT ILLNESS: The patient was seen and examined. I do agree with the note of the medical writer. I was involved in plan of care. The patient came into the hospital because of severe back pain. He says he was moving some furniture and started having acute back pain. He says the pain was about 9/10. The patient was brought in by his daughter. He says he had a fall a few days ago. He also was at [facility] for rehab and was discharged a few weeks ago. The patient says his pain is controlled with the medications, especially the morphine that he received. He had a CT of the hip done that shows multilevel spinal and bilateral hip degeneration. There are no fractures. There is a lumbar spine CT that showed an acute L2 vertebral compression fracture with mild bony retropulsion. The patient had consultation with Neurosurgery, Dr. Valenzuela. He suggested a TLSO brace. There is no surgical intervention that is required. The patient is being treated for his L2 fracture with pain medications. He does have a history of chronic pain and also is currently on morphine for acute breakthrough pain. The patient has hypertension. He is on metoprolol that he has been receiving. He has a history of COPD and currently is not having shortness of breath. He is on gabapentin for neuropathy. He has osteoporosis and most likely will need bisphosphonates as an outpatient once he is stable. The patient has Lexapro for his anxiety. He is on Lipitor for his dyslipidemia. He will need physical therapy and will also get evaluation by Dr. Pito Morales for a kyphoplasty. The patient will most likely need physical therapy. He is on Synthroid for his hypothyroidism. He is on a heart-healthy diet. His blood pressure is elevated, most likely he has pain. We will continue to follow for now. His labs were reviewed. Justus Chung MD
[2018-10-08] MEDS: Levothyroxine 50 MCG TAB PO SCH ×2 (05:53→09:43)
[2018-10-08] MEDS: Oxycodone/Acetaminophen 5/325 mg Tab PO PRN (05:53)
[2018-10-08] MEDS: Metoprolol Succinate 25 mg XL Tab PO SCH (09:42)
[2018-10-08] MEDS: oxyCODONE 20 mg ER Tab (oxyCONTIN) PO SCH (09:43)
[2018-10-08] MEDS: Morphine 4 mg/ml ISec IVP PRN (13:28)
--- NOTE | 2018-10-08 15:12 | PN ---
DATE: 10/08/2018 SUBJECTIVE: The patient is a 78-year-old male who came to emergency room after he had a fall. He got off balance and fell on the floor, some complaint of back pain more than usual. He was unable to get up or walk, he lives with his daughter who called ambulance and was brought to ER. PAST MEDICAL HISTORY: He has past medical history of significant for: 1. Hypertension. 2. COPD. 3. Osteoporosis. 4. Chronic back pain. 5. Hypothyroidism. PHYSICAL EXAMINATION: GENERAL: The patient is awake, alert and able to communicate. VITAL SIGNS: The patient is afebrile. Pulse 63, respiration 18 and blood pressure 120/74. LUNGS: Bilateral fair airflow. Diffusely decreased breath sounds. HEART: S1 and S2, audible. ABDOMEN: Soft and nontender. No rebound. No guarding. NEUROLOGIC: The patient is awake, alert and able to communicate. LABORATORY DATA: He had lumbar spine CT done that shows acute osseous demineralization that is stable, levoconvex curvature of the lumbar spine. Acute vertebral lumbar spine, acute vertebral compression fracture of L2 was identified with mild bony retropulsion, multilevel degenerative disc disease. ASSESSMENT: 1. Status post fall. 2. Acute L2 vertebral compression fracture with mild bony retropulsion. 3. Chronic degenerative disc disease. 4. Hypothyroidism. 5. History of chronic obstructive pulmonary disease. 6. Deconditioning and difficulty walking. 7. Osteoporosis. PLAN: Currently, the patient is on his usual medication including aspirin, Lexapro and Lipitor. He is on morphine. He is on gabapentin. He is getting his oxycodone twice a day and I will order MRI of the lumbar spine and possible kyphoplasty in a.m. by Dr. Pito Morales. Gio Amanda MD
[2018-10-08] MEDS: Lidocaine 5% Patch TD SCH (15:22)
[2018-10-09] MEDS: oxyCODONE 20 mg ER Tab (oxyCONTIN) PO SCH ×3 (03:26→18:14)
[2018-10-09] MEDS: Morphine 4 mg/ml ISec IVP PRN ×2 (03:50→11:03)
[2018-10-09] MEDS: Levothyroxine 50 MCG TAB PO SCH (09:14)
[2018-10-09] MEDS: Metoprolol Succinate 25 mg XL Tab PO SCH (09:14)
[2018-10-09] MEDS: Lidocaine 5% Patch TD SCH (09:15)
--- NOTE | 2018-10-09 13:21 | MRI ---
Date of service: 10/08/2018 PROCEDURE: MR LUMBAR SPINE WITHOUT CONTRAST HISTORY: evaluate L2 comp fx for kyphoplasty COMPARISON: None available. TECHNIQUE: Multiecho multiplanar sequences were performed through the lumbar spine without the use of intravenous contrast. FINDINGS: Moderate levoscoliotic lumbar spinal deformity with an apex at the approximate L3-4 disc interspace level. Grade 1 spondylolisthesis at L4-5 is identified with L4 mildly anteriorly displaced on the basis of severe facet joint arthropathy. No spondylolysis. An additional grade 1 spondylolisthesis at L5-S1 is identified with L5 anterior to S1 also on a degenerative basis. Lumbar curvature is otherwise uninterrupted. L2 anterior wedge compression fracture is identified, now subacute, with minimal retropulsion of the upper portion posteriorly by a 2-3 mm. Slight deflection of the anterior wall is identified anteriorly and the left lateral wall laterally somewhat. Posterior elements appear intact including the pedicles. No definite additional fracture. Conus medullaris is normal in intrinsic signal terminating at the inferior L1 level with prevertebral paraspinal soft tissues remarkable only for trace prevertebral posttraumatic edema. Multilevel advanced disc desiccation is appreciated with marked disc height loss present L4-5 and L5-S1. T12-L1: No disc herniation, spinal canal stenosis or neural foraminal narrowing. L1-2: No disc herniation, spinal canal stenosis or neural foraminal narrowing. L2-3: No disc herniation, spinal canal stenosis or neural foraminal narrowing. L3-4: Moderate sized posterior disc bulge is identified flattening the ventral thecal sac asymmetrically greater at the left and right sides and a [id number] degenerative right neural foraminal stenosis. Right greater than left lateral recess stenosis appreciate with jtgz-ro-dehnoxyy central canal stenosis with asymmetry in part due to scoliotic deformity. No definitive disc herniation identified. L4-5: Grade 1 spondylolisthesis, facet arthropathy and limited posterior disc bulging cause a [id number]-[id number] inferior central canal stenosis. Scoliosis related asymmetry in facet arthropathy is identified right greater than left, contributing to the central canal stenosis. Moderate left and moderate to severe right degenerative neural foraminal stenosis identified. No definite disc herniation. L5-S1: A limited posterior disc bulge flattens the ventral thecal sac and gross asymmetric facet joint degenerative changes are identified on asymmetric basis due to scoliosis. Left lateral recess is obliterated by osteophytes with the right widely patent. Moderate to severe left and mild to moderate right degenerative neural foraminal stenosis on the basis of disc bulging and asymmetric facet joint arthropathy. OTHER FINDINGS: None. IMPRESSION: 1. No significant interval change in [id number] anterior wedge compression fracture of L2 with only minimal posterior retropulsion of the posterior anterior and posterior borders of the fracture as well as left laterally. No significant central stenosis results posterior to L2. 2. Moderate levoscoliotic lumbar spinal deformity reiterated without additional fracture. Grade 1 spondylolistheses are identified at L3-4 and L4-5. Vmrw-sp-ymelwaso degenerative stenosis inferior central canal L4-5. No similar worse central stenosis otherwise evident. 3. Multilevel variable neural foraminal stenoses, degenerative. 4. No definitive new findings compared to CT lumbar spine 10/06/2018.
--- NOTE | 2018-10-09 13:57 | PN ---
DATE: 10/09/2018 SUBJECTIVE: The patient is a 78-year-old, seen and examined, complained of excruciating pain in the back, that hurts even to moving within the bed. Denies any nausea or vomiting. PHYSICAL EXAMINATION: VITAL SIGNS: He is afebrile. Pulse 87, respiration 18, blood pressure 152/90. LUNGS: Bilateral fair air flow. No rhonchi or crackle. HEART: S1 and S2 audible. ABDOMEN: Soft, nontender. No rebound. No guarding. NEUROLOGICAL: He is awake and alert. Able to communicate. Complaining of pain in the back upon minimal movement. EXTREMITIES: Bilateral leg, no edema. LABORATORY DATA: There is no new lab available today. He had MRI of the lumbosacral spine done. Results are pending. ASSESSMENT: 1. Status post fall. 2. Acute L2 fracture. 3. Chronic degenerative disk disease. 4. History of chronic obstructive pulmonary edema. 5. Osteoporosis. 6. Chronic anemia. 7. Hypothyroidism. 8. History of scoliosis. PLAN: The patient will be evaluated by Dr. Pito Morales for possible kyphoplasty either today or tomorrow. We will keep him on his usual analgesic and we will start him on MiraLax. Then we will arrange for subacute rehab after kyphoplasty. Gio Amanda MD
[2018-10-09] MEDS: POLYETHYLENE GLYCOL 3350 17 GM/Dose PACKET PO SCH (14:29)
--- NOTE | 2018-10-10 00:20 | CON ---
DATE: 10/09/2018 TIME: 7 p.m. CHIEF COMPLAINT/HISTORY OF PRESENT ILLNESS: This is a 78-year-old man who was admitted post fall with severe lumbar back pain. He has a history of chronic pain, on opiates, and previous lumbar surgeries. He fell on Sunday and has been experiencing severe pain since that time. He denies any neurologic deficit in the lower extremities or bowel/bladder issues. He has not been out of bed and has not responded to conservative therapy. His recent lumbar MRI which reveals an acute L2 compression fracture. Degenerative changes of the lower lumbar spine is seen. I had a long discussion with Mr. Scales and his daughter concerning possible kyphoplasty at L2. His pain is debilitating and not responding to conservative management. He understands the risks and potential benefits and would like to proceed with the kyphoplasty. I will schedule in the next one-two days. After that, he will likely need to go to rehab. Pito Morales MD MTDJanes
[2018-10-10] MEDS: oxyCODONE 20 mg ER Tab (oxyCONTIN) PO SCH ×2 (06:22→19:03)
[2018-10-10] MEDS: Levothyroxine 50 MCG TAB PO SCH ×2 (06:22→11:08)
[2018-10-10] MEDS: Metoprolol Succinate 25 mg XL Tab PO SCH (11:06)
[2018-10-10] MEDS: POLYETHYLENE GLYCOL 3350 17 GM/Dose PACKET PO SCH (11:07)
[2018-10-10] MEDS: Lidocaine 5% Patch TD SCH (11:09)
[2018-10-10] MEDS: Morphine 4 mg/ml ISec IVP PRN (11:21)
[2018-10-10] MEDS ORDERED: Lidocaine 2% Inj (20ml) ONE (15:12)
--- NOTE | 2018-10-10 15:35 | PN ---
DATE: 10/10/2018 SUBJECTIVE: The patient is 78 years old, who came to emergency room after he fell. Had MRI done, was found to have acute L2 fracture. The patient was evaluated by Dr. Pito Morales, scheduled to have kyphoplasty done today. He already spoke to the patient's daughter, Angy, who seems to agree. PHYSICAL EXAMINATION: GENERAL: He is awake and alert, able to communicate. VITAL SIGNS: He is afebrile. Pulse 76, respirations 18, and blood pressure 134/86. LUNGS: Bilateral fair airflow. No rhonchi or crackles. HEART: S1 and S2, audible. ABDOMEN: Soft. He has back pain that gets aggravated by movement. EXTREMITIES: Bilateral leg, no edema. LABORATORY DATA: He had MRI of the lumbosacral spine done shows acute L2 fracture. ASSESSMENT: 1. Status post fall. 2. L2 fracture. 3. Chronic obstructive pulmonary disease. 4. Severe degenerative disc disease. 5. Osteoporosis. 6. Chronic anemia. 7. Hypothyroidism. PLAN: We will continue the patient on current pain management. He is scheduled to have kyphoplasty done later on today. We will follow up this patient in a.m. Gio Amanda MD
[2018-10-10] MEDS ORDERED: Midazolam 2 MG/2 ML VIAL ONE ×2 (15:59→16:11)
[2018-10-10] MEDS ORDERED: Iohexol 350mgl/ml 50 ML ONE (15:59)
--- NOTE | 2018-10-10 18:32 | VASCULAR ---
PROCEDURE: 1. L2 kyphoplasty. HISTORY: Severe, refractory back pain. Unresponsive to bed rest and analgesics. Acute L2 compression fracture on MRI. PHYSICIAN(S): Pito Morales MD. TECHNIQUE: he relative risks and indications of the procedure were explained to the patient and informed written consent obtained. The patient was placed prone on the arteriography table and the thoracolumbar spine prepped and draped in the usual sterile fashion. Conscious sedation and monitoring were provided throughout the procedure by a nurse. The L2 vertebral body was carefully localized with fluoroscopy. The skin and soft tissues were anesthetized with 1% Xylocaine. Under direct fluoroscopic guidance, bilateral transpedicular bone needles were placed into the posterior aspect of the L2 vertebral body. Next bilateral 15mm bone balloons were placed in the superior and anterior portion of the L2 vertebral body. They were inflated to approximately 3-4 cc apiece with dilute contrast. The balloons were removed and 7.5 cc of barium-impregnated PMMA cement instilled into the L2 vertebral body. No extravasation was seen. The bone needles were removed. The patient tolerated the procedure well. IMPRESSION: 1. Fluoroscopically-guided L2 kyphoplasty.
[2018-10-10] MEDS: Sodium Chloride 0.45% 1,000 ML IV SCH (19:04)
[2018-10-10] MEDS: Albuterol-Ipratrop 3 mg / 0.5 (3 ml) UD IH SCH (19:50)
[2018-10-11] MEDS: Albuterol-Ipratrop 3 mg / 0.5 (3 ml) UD IH SCH ×4 (01:31→20:10)
[2018-10-11] MEDS: Sodium Chloride 0.45% 1,000 ML IV SCH ×2 (06:01→17:49)
[2018-10-11] MEDS: oxyCODONE 20 mg ER Tab (oxyCONTIN) PO SCH ×2 (06:02→23:03)
[2018-10-11] MEDS: Levothyroxine 50 MCG TAB PO SCH ×2 (06:02→15:49)
[2018-10-11] MEDS: Metoprolol Succinate 25 mg XL Tab PO SCH (10:39)
[2018-10-11] MEDS: Lidocaine 5% Patch TD SCH (10:40)
[2018-10-11 12:07] LABS: HEMOGLOBIN 11.4 g/dL (14.0-18.0); MEAN CELL VOLUME 95.3 fl (80.0-105.0); MEAN CORPUSCULAR HEMOGLOBIN 31.5 pg (25.0-35.0); MEAN PLATELET VOLUME 9.1 fl (7.0-11.0); RBC 3.62 10^6/uL (3.5-6.1); WHITE BLOOD COUNT 7.3 10^3/uL (4.5-11.0)
[2018-10-11 12:22] LABS: ALB/GLOB RATIO 0.8 (1.1-1.8); ALBUMIN 3.3 g/dL (3.0-4.8); ALT/SGPT 9 U/L (7-56); AST/SGOT 25 U/L (17-59); BLOOD UREA NITROGEN 27 mg/dL (7-21); CALCIUM 8.3 mg/dL (8.4-10.5); GFR NON-AFRICAN AMERICAN > 60
[2018-10-11] MEDS ORDERED: cefTRIAXone 1 gm 1 GM/100 ML BAG IVPB SCH (12:45)
--- NOTE | 2018-10-11 12:58 | CT ---
Date of service: 10/11/2018 PROCEDURE: CT Chest without contrast HISTORY: congestion COMPARISON: None available. TECHNIQUE: Contiguous axial images were obtained through the chest without intravenous contrast enhancement. Sagittal and coronal reconstructions were performed. Radiation dose: Total exam DLP = 496.12 mGy-cm. This CT exam was performed using one or more of the following dose reduction techniques: Automated exposure control, adjustment of the mA and/or kV according to patient size, and/or use of iterative reconstruction technique. FINDINGS: LUNGS: Biapical pleural parenchymal consolidation. Large right lower lobe pneumonia with bilateral interstitial changes. MEDIASTINUM: Unremarkable thoracic aorta. No aneurysm. Normal sized heart. Main pulmonary artery unremarkable. No vascular congestion. Severe narrowing of the right mainstem bronchus and proximal right lower lobe segmental bronchi. Right hilar lymphadenopathy. PLEURA: No pleural fluid. No pneumothorax. BONES: No fracture. No destructive lesion. UPPER ABDOMEN: Cholelithiasis. OTHER FINDINGS: None. IMPRESSION: Severe narrowing of the right mainstem bronchus and proximal right lower lobe segmental bronchi. Right hilar lymphadenopathy. Biapical pleural parenchymal consolidation. Large right lower lobe pneumonia with bilateral interstitial changes.
[2018-10-11] MEDS ORDERED: Vancomycin 1gm in NS 250ml 1 GM/250 ML BAG IVPB STA (14:22)
--- NOTE | 2018-10-11 14:47 | PN ---
DATE: 10/11/2018 SUBJECTIVE: The patient is 78 years old, underwent L2 kyphoplasty yesterday, seems to be little lethargic. He opens eyes, but they cannot stay awake. PHYSICAL EXAMINATION: VITAL SIGNS: He is afebrile. Pulse 88, respirations 20 and blood pressure 177/85. LUNGS: Bilateral soft crackles at base. HEART: S1 and S2, audible. ABDOMEN: Soft and nontender. NEUROLOGIC: He is sleepy, but arousable. LABORATORY DATA: WBC 7.3, hemoglobin 11.4, hematocrit 34.5 and platelets 172. Chemistry; sodium 133, potassium 4.0, chloride 99, CO2 of 27, BUN 27, creatinine 0.8 and blood sugar of 162. Had CT of the chest done, results are not available. ASSESSMENT: 1. Status post fall. 2. L2 compression fracture, status post kyphoplasty. 3. History of chronic obstructive pulmonary disease. 4. Lethargy probably secondary to narcotics. 5. History of hypertension. 6. Hypothyroidism. PLAN: We will keep the patient n.p.o. for now. We will start him on IV fluid. Follow up CT of the chest. I will start him on Rocephin empirically. Currently, he is on nebulizer treatment. The patient is not cleared for subacute rehab today until his mental status improves. We will follow up the patient. Gio Amanda MD
[2018-10-11 15:22] LABS: ARTERIAL BLOOD GAS HCO3 21.1 mmol/L (21-28); ARTERIAL BLOOD GAS HEMOGLOBIN 10.3 g/dL (11.7-17.4); ARTERIAL BLOOD GAS O2 CAPACITY 14.3 mL/dl (16-24); ARTERIAL BLOOD GAS O2 CONTENT 14.1 ML/dl (15-23); ARTERIAL BLOOD GAS O2 SAT 98.7 % (95-98); ARTERIAL BLOOD GAS PCO2 29 mm/Hg (35-45); ARTERIAL BLOOD GAS PH 7.47 (7.35-7.45)
[2018-10-11] MEDS: POLYETHYLENE GLYCOL 3350 17 GM/Dose PACKET PO SCH (15:50)
[2018-10-11] MEDS: Vancomycin 1gm in NS 250ml 1 GM/250 ML BAG IVPB SCH (23:17)
[2018-10-11] MEDS: Meropenem IV 1 gm in NS 1 GM/50 ML BAG IVPB SCH (23:17)
[2018-10-12] MEDS: Sodium Chloride 0.45% 1,000 ML IV SCH (02:02)
[2018-10-12] MEDS: Albuterol-Ipratrop 3 mg / 0.5 (3 ml) UD IH SCH ×4 (03:06→19:24)
[2018-10-12] MEDS: Morphine 4 mg/ml ISec IVP PRN ×2 (04:06→12:51)
[2018-10-12] MEDS: POLYETHYLENE GLYCOL 3350 17 GM/Dose PACKET PO SCH (09:05)
[2018-10-12] MEDS: oxyCODONE 20 mg ER Tab (oxyCONTIN) PO SCH ×2 (09:20→18:13)
[2018-10-12] MEDS: Lidocaine 5% Patch TD SCH (09:20)
[2018-10-12] MEDS: Metoprolol Succinate 25 mg XL Tab PO SCH (09:22)
[2018-10-12] MEDS: Levothyroxine 50 MCG TAB PO SCH (09:22)
[2018-10-12] MEDS: Vancomycin 1gm in NS 250ml 1 GM/250 ML BAG IVPB SCH ×2 (10:04→22:42)
[2018-10-12] MEDS: Meropenem IV 1 gm in NS 1 GM/50 ML BAG IVPB SCH ×2 (14:27→21:19)
[2018-10-12] MEDS: Enoxaparin 30 mg Syringe SC SCH (19:28)
--- NOTE | 2018-10-12 22:53 | PN ---
DATE: 10/12/2018 SUBJECTIVE: The patient is 78 years old. Seen and examined. Lying in bed. Looks more alert today. Poor oral intake. Daughter is at the bedside. PHYSICAL EXAMINATION: VITAL SIGNS: He is afebrile, pulse 85, respirations 18, blood pressure 105/70. LUNGS: Bilateral diffusely decreased breath sounds. Few soft crackles heard on the base. HEART: S1 and S2 audible. ABDOMEN: Soft, nontender. No rebound. No guarding. NEUROLOGIC: The patient is awake and alert. Able to communicate. EXTREMITIES: Bilateral legs, no edema. LABORATORY EXAMINATION: There is no new lab available today. I will order for tomorrow. His blood cultures are negative. CT scan of the chest was done that showed severe narrowing of right mainstem bronchus and probably more right lower lobe segment bronchi, right hilar lymphadenopathy, biapical pleural consolidation, large right lower lobe pneumonia with bilateral interstitial changes. ASSESSMENT: 1. Status post fall. 2. L2 acute fracture, status post kyphoplasty. 3. Right lower lobe pneumonia. 4. Chronic obstructive pulmonary disease. 5. Severe degenerative disk disease. 6. Deconditioning and difficulty walking. 7. Poor oral intake. PLAN: We will continue the patient on IV fluids since his oral intake is poor. He is on DVT prophylaxis. He is on vancomycin and meropenem. Continue nebulizer treatment and supportive care. Physical therapy evaluation has been requested. Follow up the patient in a.m. Not ready to go to subacute rehab yet. Gio Amanda MD
--- NOTE | 2018-10-12 23:24 | CON ---
DATE: 10/12/2018 HISTORY OF PRESENT ILLNESS: Mr. Scales was admitted to the hospital on 10/07/2018 with complaints of severe back pain and hip pain. He underwent an orthopedic procedure yesterday. He remains uncomfortable and states that he has occasional cough with very mild shortness of breath, previously described on exertion. He has been on chronic opiates at home prior to admission. He has a history of chronic obstructive pulmonary disease and is being followed by Dr. Luis Antonio Juares as an outpatient for this problem. He states that at the present time, his COPD symptoms are relatively stable but does note that there is some change. His back pain and hip pain are more severe, and he states that this is the reason for his admission. PAST MEDICAL HISTORY: As described above, COPD, hypertension, osteoporosis, chronic lower back pain, anemia, hypothyroidism, scoliosis. SOCIAL HISTORY: Smoking, [id number] history, quit many years ago. No other occupational or travel history. FAMILY HISTORY: Noncontributory. OUTPATIENT MEDICATIONS: The patient is unaware of which nebulizer treatments he takes at home but states that he is using his nebulizer treatments regularly. He also may use a metered dose inhaler, the name of which at this time, During the course of his short hospitalization, the patient had a CT of the chest. There is no chest x-ray done at this time but this was done for unknown reason as to results of which are below. ALLERGIES: ERYTHROMYCIN. REVIEW OF SYSTEMS: Essentially negative other than that as described above. PHYSICAL EXAMINATION: GENERAL: The patient is still in pain, on analgesics. VITAL SIGNS: Stable. Blood pressure 160/70, heart rate 88 to 94, respiratory rate 18, O2 saturation 98% on supplemental oxygen. HEENT: Normocephalic, atraumatic. Eyes PERRL. EOMs full. Conjunctivae pink. NECK: Supple. No jugular venous distention. No lymphadenopathy, no bruit. HEART: Regular rhythm, S1, S2 without murmur, gallop, or rub. CHEST: Minimal rhonchi. No wheezing appreciated. Somewhat decreased breath sounds in the midlung cesar bilaterally. ABDOMEN: Soft. Bowel sounds normoactive without mass, guarding, rebound, or organomegaly. EXTREMITIES: Reveal no clubbing, cyanosis, or edema. NEUROLOGIC: Reveals no focal finding but there is severe pain and tenderness over the lumbar region and hips. LABORATORY DATA: CAT scan of the chest done yesterday shows a severe narrowing of the right main stem bronchus and proximal right lower lobe segmental bronchi, right hilar lymphadenopathy. I believe that this problem is new but I am unable to get in contact with Dr. Juares today who sees Mr. Scales as an outpatient. This definitely needs to be further evaluated at this time. Other laboratory data shows white count is 7000, hemoglobin 11.4, platelet count of 172,000, eosinophils of 2.7%. Coags, PT 12.8. Blood gas yesterday pH 7.47, pCO2 of 29, pO2 of 122. Chemistries abnormalities, BUN of 27, glucose of 162, calcium 8.3. EKG sinus tach, nonspecific ST-T wave changes. IMPRESSION: At this time, 1. Chronic obstructive pulmonary disease. 2. Narrowing of the bronchus seen on CT of the chest with possible lymphadenopathy. 3. Status post fall with compression fracture of L2, status post kyphoplasty. 4. Hypertension. 5. Hypothyroidism. PLAN: The CAT scan of the chest is noted. The patient was started on Rocephin for possible infection. The narrowing and lymphadenopathy is suspicious for bronchogenic carcinoma. Since the patient is known to Dr. Juares as an outpatient and will see the patient Sunday, we will defer further treatment plan 24 hours until he sees the patient and reviews the study. If this abnormality fails to resolve, then the tracheobronchial tree must be evaluated with bronchoscopy but will discuss with Dr. Juares, Sunday. The patient is still in some distress and in pain and is not yet ready to be discharged in any event. No further intervention can be done on the weekend but we will continue with vigorous bronchodilator therapy as the patient has at home. He will continue with antibiotics, albuterol, and DuoNeb. We will add budesonide to this mix and follow him closely. Thank you for the opportunity to evaluate this patient. Peter Ansari MD
[2018-10-13] MEDS: Albuterol-Ipratrop 3 mg / 0.5 (3 ml) UD IH SCH ×4 (01:17→19:40)
--- NOTE | 2018-10-13 01:37 | CON ---
DATE: 10/12/2018 LOCATION: The patient is seen in room 572, bed 1. CHIEF COMPLAINT: Fever since 1 day. HISTORY OF PRESENT ILLNESS: This is a 78-year-old male. The patient was seen in the emergency room on the with a history of hypertension, chronic obstructive lung disease, osteoporosis, chronic back pain, complained of back pain and hip pain after a fall. The patient's pain continued. The patient was admitted on the and the patient did have a fever yesterday of 100.5 and Infectious Disease consultation requested. REVIEW OF SYSTEMS: Reveals the patient to have mild shortness of breath, minimal cough. No abdominal pain. No diarrhea or constipation. No bright red blood per rectum. No melena. Twelve point review of systems performed. PAST MEDICAL HISTORY: Significant for high cholesterol, hypertension, chronic obstructive lung disease, osteoporosis, hypothyroidism, and bronchitis. The patient also has disc disease, chronic back pain. PAST SURGICAL HISTORY: Significant for back surgery x2. ALLERGIES: THE PATIENT IS ALLERGIC TO ERYTHROMYCIN BASED ANTIBIOTICS. MEDICATIONS AT HOME: Reveals the patient to be on oxycodone, simvastatin, omega-3, metoprolol, and celecoxib. PHYSICIAN EXAMINATION: GENERAL: The patient is in bed with a temperature of 100.5 and heart rate of 93, it was up to 108, respiratory rate of 20 and blood pressure 120/80. Examination of HEENT is unremarkable. NECK: Supple. LUNGS: Have decreased breath sounds. HEART: Normal S1, S2. ABDOMEN: Soft, nontender. LABORATORY EXAMINATION: Reveals a white count of 6.3. Coagulation is noted. Chemistries are reviewed. The patient's BUN of 18, creatinine of 0.9, random glucose 162. History of microbiology: The patient had negative blood cultures approximately 2 months ago. The patient also had a CAT scan of the chest that was read by Dr. Frank Herbert, which reveals the patient has a right hilar lymphadenopathy and consolidation. ASSESSMENT AND PLAN: A 78-year-old male with 1. Sepsis with healthcare-associated pneumonia. We will treat the patient with vancomycin and meropenem, pending procalcitonin and blood cultures, sputum cultures, and MRSA screen and pending pancultures and initial workup results. We will follow closely with you. Kermit Silver MD [facility] # [id number]
[2018-10-13] MEDS: Meropenem IV 1 gm in NS 1 GM/50 ML BAG IVPB SCH ×3 (05:09→21:57)
[2018-10-13] MEDS: Morphine 4 mg/ml ISec IVP PRN ×2 (06:27→14:38)
[2018-10-13] MEDS: oxyCODONE 20 mg ER Tab (oxyCONTIN) PO SCH ×2 (08:58→18:18)
[2018-10-13] MEDS: Vancomycin 1gm in NS 250ml 1 GM/250 ML BAG IVPB SCH ×2 (09:57→21:57)
[2018-10-13] MEDS: Lidocaine 5% Patch TD SCH (09:57)
[2018-10-13] MEDS: POLYETHYLENE GLYCOL 3350 17 GM/Dose PACKET PO SCH (09:58)
[2018-10-13] MEDS: Metoprolol Succinate 25 mg XL Tab PO SCH (10:00)
[2018-10-13] MEDS: Levothyroxine 50 MCG TAB PO SCH (10:00)
[2018-10-13] MEDS: Enoxaparin 30 mg Syringe SC SCH (10:07)
--- NOTE | 2018-10-13 12:00 | PN ---
DATE: 10/13/2018 SUBJECTIVE: The patient is in bed in no acute distress, nontoxic. PHYSICAL EXAMINATION: VITAL SIGNS: Temperature is 97.9, blood pressure is 140/80, respiratory rate of 18. HEENT: Unremarkable. NECK: Supple. LUNGS: Have decreased breath sounds. HEART: Normal S1, S2. ABDOMEN: Soft. LABORATORY EXAMINATION: Reveals a white count of 7.3, hemoglobin of 11 and coagulation is noted and chemistries reveals a BUN of 27, creatinine of 0.8. Microbiology reveals the blood cultures are negative. Urine cultures are negative. Review of orders reveals the patient to be on meropenem and vancomycin. Dr. Amanda's progress note is reviewed. ASSESSMENT AND PLAN: This is a 78-year-old male who was seen earlier today in 572, bed 1 with; 1. Sepsis with healthcare-associated pneumonia with negative blood cultures, negative urine cultures and pro calcitonin of 0.30. The methicillin-resistant Staphylococcus aureus screen is pending on vancomycin and meropenem day #3, would recommend 4-7 days of antibiotics. The patient with L2 acute fracture, status post kyphoplasty, chronic obstructive lung disease, severe degenerative disc disease. If the methicillin-resistant Staphylococcus aureus screen is negative we will discontinue the vancomycin. The patient with chronic back pain and also has disc disease, hypothyroidism, osteoporosis and we will follow with you. Kermit Silver MD
[2018-10-13] MEDS: Sodium Chloride 0.45% 1,000 ML IV SCH (18:19)
--- NOTE | 2018-10-14 00:03 | PN ---
DATE: 10/13/2018 PULMONARY PROGRESS NOTE SUBJECTIVE: Mr. Scales remained sleepy this morning. He is in no acute respiratory distress. He is not uncomfortable. He has been followed closely by the house staff. His status is essentially unchanged. He is status post kyphoplasty day #2. He has a history of hypertension and hypothyroidism. He has chronic obstructive pulmonary disease which is stable at this time. There was a CAT scan done which shows narrowing of the bronchus with possible lymphadenopathy. OBJECTIVE: GENERAL: The patient is sleepy but awake and alert. There were no changes noted. VITAL SIGNS: Remain stable. Blood pressure 130/80, heart rate 80, respiratory rate 16. HEENT: Head normocephalic, atraumatic. Eyes PERRLA. EOM is full. Conjunctivae pink. NECK: Supple. No jugular venous distention. No lymphadenopathy, no bruit. HEART: Regular rhythm, S1, S2, without murmur, gallop or rub. CHEST: Minimal rhonchi throughout. No wheezing or rales appreciated. GASTROINTESTINAL: Soft. Bowel sounds normoactive without mass, guarding, rebound or organomegaly. EXTREMITIES: Reveal no clubbing, cyanosis or edema. There is no evidence of deep vein thrombosis. NEUROLOGIC: The patient is sleeping but there is no acute change noted. IMPRESSION: 1. Chronic obstructive pulmonary disease, stable at this time. 2. Narrowing of the bronchus with possible lymphadenopathy, to require further evaluation. 3. Status post fall with compression fracture of L2 status post kyphoplasty. PLAN: I will defer further evaluation to Dr. Juares who will see the patient in the morning. The patient should continue on Rocephin at this time. Whether this abnormality seen on CAT scan is related to infection and/or neoplasm cannot be determined on CAT scan alone. The patient will require further treatment and evaluation if he fails to improve the findings seen on CT. Continue inhaled antibiotics as discussed above with DuoNeb and budesonide. We will follow up closely with you and the case will be discussed with Dr. Juares in the morning. Peter Ansari MD
[2018-10-14] MEDS: Albuterol-Ipratrop 3 mg / 0.5 (3 ml) UD IH SCH ×4 (01:08→19:31)
[2018-10-14] MEDS: Meropenem IV 1 gm in NS 1 GM/50 ML BAG IVPB SCH ×3 (05:25→22:46)
[2018-10-14] MEDS ORDERED: Albuterol-Ipratrop 3 mg / 0.5 (3 ml) UD IH ONE (05:58)
[2018-10-14] MEDS ORDERED: Albuterol-Ipratrop 3 mg / 0.5 (3 ml) UD IH PRN (07:11)
[2018-10-14] MEDS: Budesonide 0.5 mg/2 ml Inhal Susp UD IH SCH ×2 (07:19→19:31)
--- NOTE | 2018-10-14 07:59 | PN ---
DATE: 10/14/2018 SUBJECTIVE: The patient appears comfortable this morning. He is not short of breath at rest. He does complain of "pain all over." PHYSICAL EXAMINATION: VITAL SIGNS: (Last noted in the computer): Last temperature recorded 100.4, pulse this morning is 88, respiratory rate 20, blood pressure 135/90. Oxygen saturation on nasal cannula 90% to 94%. HEENT: Normocephalic, atraumatic. No JVD. CARDIOVASCULAR: Positive S1, S2. No S3 gallop. LUNGS: Decreased breath sounds with crackles at the right lower lobe. Minimal bilateral rhonchi. No wheezing. EXTREMITIES: No clubbing, cyanosis or edema. Calves are nontender to palpation. GASTROINTESTINAL: Abdomen is soft, nontender, nondistended. Bowel sounds are positive. SKIN: No acute rash. NEUROLOGIC: Exam limited at the present time. PERTINENT LABORATORY DATA: I did review the CAT scan of the chest done on 10/11/2018. There appears to be mild right hilar adenopathy with external compression on the right mainstem bronchus. I do not appreciate any endobronchial lesions. There is also a right lower lobe infiltrate seen. I also reviewed the CAT scan of 08/18/2018. The right hilar adenopathy and external impingement on the right mainstem bronchus appears similar to the most present CAT scan. I also reviewed the CAT scan of 01/22/2018. Again, findings are similar to the most present CAT scan. IMPRESSION: 1. Right lower lobe pneumonia. 2. Advanced chronic obstructive pulmonary disease. 3. Possible right hilar adenopathy. 4. Acute compression fracture - L2 vertebrae. 5. Severe deconditioning. PLAN: The patient appears comfortable this morning. He is not short of breath at rest. He does, however, complain of "pain all over." On physical exam, there is mild bronchospasm noted. I will continue with the DuoNeb treatments and add inhaled Pulmicort. I did review the last CAT scan of the chest - noted above. The mild right hilar adenopathy can be evaluated further as an outpatient - with PET scanning--if needed. Again, the most recent CAT scan does not seem significantly changed from the previous two CAT scans. In addition, the right hilar lymph nodes may be slightly enlarged - reactive - secondary to the pneumonia. Again, the CAT scan abnormalities will need to be followed up - as an outpatient--discussed with patient. I would continue with the antibiotic coverage as per Infectious Disease. Input by Dr. Silver is noted. I did discuss the case with Dr. Silver this morning. Clinical status of the patient is certainly improved - compared to the initial presentation. However, given the above, the future status/prognosis for this fragile elderly patient does remain guarded. I will discuss the above with Dr. Amanda later this morning. Luis Antonio Juares MD [facility]
--- NOTE | 2018-10-14 09:08 | PN ---
DATE: 10/13/2018 SUBJECTIVE: The patient is 78 years old, seen and examined. Seems to be more awake and alert. Ate a little bit today. Still complains of intractable back pain. PHYSICAL EXAMINATION: VITAL SIGNS: He is afebrile, pulse 87, respirations 18, blood pressure 145/82. LUNGS: Bilateral fair air flow. No rhonchi or crackles. right lower lung . HEART: S1 and S2, audible. ABDOMEN: Soft. Nontender. No rebound. No guarding. NEUROLOGIC: He is awake and alert. Able to communicate. LABORATORY EXAMINATION: There is no new lab available today. ASSESSMENT: 1. Status post fall. 2. Status post compression fractures. 3. Chronic obstructive pulmonary disease. 4. Right lower lobe pneumonia. 5. Poor oral intake. 6. History of hypertension. 7. Degenerative disk disease. PLAN: I will add dose of Mobic for a few days. We will continue low dose IV fluids. Continue on his analgesic, his antibiotic prophylaxis. He is on meropenem and vancomycin for his aspiration pneumonia. We will follow up. Gio Amanda MD
[2018-10-14] MEDS: Metoprolol Succinate 25 mg XL Tab PO SCH (09:56)
[2018-10-14] MEDS: oxyCODONE 20 mg ER Tab (oxyCONTIN) PO SCH (09:56)
[2018-10-14] MEDS: Levothyroxine 50 MCG TAB PO SCH (09:57)
[2018-10-14] MEDS: POLYETHYLENE GLYCOL 3350 17 GM/Dose PACKET PO SCH (09:58)
[2018-10-14] MEDS: Vancomycin 1gm in NS 250ml 1 GM/250 ML BAG IVPB SCH ×2 (09:58→22:47)
--- NOTE | 2018-10-14 14:26 | RAD ---
Date of service: 10/14/2018 PROCEDURE: Radiographs of the left shoulder HISTORY: s/p fall COMPARISON: No prior. FINDINGS: Three views were obtained. BONES: Bone alignment is normal. There is periarticular bone demineralization. No acute displaced fracture or bone destruction. JOINTS: The glenohumeral and acromioclavicular joints are preserved. No significant degenerative osteoarthrosis. SOFT TISSUES: Normal. OTHER FINDINGS: None. IMPRESSION: No acute displaced fracture or dislocation.
--- NOTE | 2018-10-14 14:28 | RAD ---
Date of service: 10/14/2018 PROCEDURE: Radiographs of the Right Shoulder HISTORY: s/p fall COMPARISON: No prior. TECHNIQUE: 3 views obtained. FINDINGS: BONES: There is periarticular bone demineralization. No acute displaced fracture or bone destruction bone alignment is normal. JOINTS: There is mild degenerative osteoarthrosis in the acromioclavicular and glenohumeral joints. SOFT TISSUES: Normal. OTHER FINDINGS: None. IMPRESSION: No acute displaced fracture or dislocation.
--- NOTE | 2018-10-14 15:37 | PN ---
DATE: 10/14/2018 SUBJECTIVE: The patient seen earlier today, no acute distress in 572. He did have a fever yesterday, temperature is down. PHYSICAL EXAMINATION: VITAL SIGNS: Temperature is 97.5, T-max 100.4, blood pressure is 130/70, respiratory rate of 21, heart rate of 100. HEENT: Unremarkable. NECK: Supple. LUNGS: Have decreased breath sounds. HEART: Normal S1, S2. ABDOMEN: Soft and nontender. LABORATORY DATA: Reveals a white count of 7.3, hemoglobin of 11. Chemistries reveals a BUN of 27, creatinine of 0.8. Microbiology reveals the blood cultures are negative. Urine cultures are negative. Review of orders reveals the patient to be on meropenem. ASSESSMENT AND PLAN: This is a 78-year-old male who was seen earlier today with sepsis with healthcare-associated pneumonia, negative cultures, negative urine cultures and negative pro calcitonin of 0.3 with methicillin-resistant Staphylococcus aureus. Vancomycin and meropenem day #4, would recommend 4-7 days of antibiotics. The patient with L2 acute fracture, status post kyphoplasty, chronic obstructive lung disease, severe degenerative disc disease and reviewing microbiology. Reveals the blood and urine cultures are negative. The methicillin-resistant Staphylococcus aureus screen is pending still and the patient still on vancomycin and meropenem. If the methicillin-resistant Staphylococcus aureus screen is negative,we will discontinue the vancomycin today is #4, would recommend treatment [address] Juares's note is reviewed and appreciated. Kermit Silver MD
[2018-10-14] MEDS: Enoxaparin 30 mg Syringe SC SCH (18:20)
[2018-10-14] MEDS: Lidocaine 5% Patch TD SCH (18:21)
--- NOTE | 2018-10-14 23:59 | CON ---
DATE: 10/14/2018 REASON FOR CONSULT: Bilateral upper extremity pain. HISTORY OF PRESENT ILLNESS: This is a 78-year-old gentleman who was admitted to the hospital status post fall on 10/06/2018, with complaints of lower back pain. The patient subsequently was diagnosed with a lumbar compression fracture and underwent a kyphoplasty as per the spine service. Over the last several days since the surgery, the patient had complaints of bilateral upper extremity pain as well as some neck pain. History is somewhat limited due to the patient's mental status. At times he is confused and there is no family member at his bedside. Part of the history has been obtained from the nurse who is taking care of him. The patient today says that his primary complaints are the pain about both his wrists. PHYSICAL EXAMINATION GENERAL: This is a gentleman in no apparent distress. He is awake and alert and responds appropriately to some questions. EXTREMITIES: Evaluation of his right shoulder shows no obvious swelling or deformity. He has limited active range of motion and passively I can get him to 90 degrees of forward flexion with no obvious signs of significant pain. No areas of crepitus is appreciated. No areas of point tenderness to palpation are appreciated. Evaluation of the wrist shows that he does have some mild swelling about the right wrist. He has tenderness over his distal radius and ulna. He is able to move all his fingers and is just about able to make a full fist. Grossly, he is neurovascularly intact. Evaluation of the left shoulder shows no obvious swelling or deformity. His skin is intact. Again, there is no crepitus appreciated. Passively I can range his shoulder again to about 100 degrees of forward flexion. No obvious deformities appreciated over the humeral shaft or his elbow. Evaluation of the left wrist again shows some mild swelling. Again there is tenderness to palpation over his distal radius. He is able to move all his fingers and just about make a fist. Grossly, he is neurovascularly intact. On cervical exam, he does have some active range of motion of his cervical spine. Exam is somewhat limited because of his mental status. He appears to be nontender to palpation over the cervical spine. LABORATORY EXAMINATION: X-rays of his shoulder show no obvious fractures or dislocations. X-rays of his wrists are pending. PLAN: At this point, we are going to order x-rays of both his wrists and his cervical spine to rule out any fractures. I am also going to speak to his family to see if we can obtain further information as to what his baseline mental status was prior to the fall. Justyn Puri MD
--- NOTE | 2018-10-15 00:27 | PN ---
DATE: 10/14/2018 SUBJECTIVE: The patient is 78-year-old, seen and examined. Lying in bed. The patient is complaining of generalized aches and pain. Unable to lift his arms because of shoulder pain, knee pain and elbow pain. Poor oral intake. Daughter by the bedside. Complaining of constipation. PHYSICAL EXAMINATION: VITAL SIGNS: Afebrile. Pulse 91, respirations 20, and blood pressure 135/87. LUNGS: Bilateral fair air flow. No rhonchi or crackles. HEART: S1 and S2 audible. ABDOMEN: Soft. Nontender. No rebound. No guarding. NEUROLOGIC: The patient is awake and alert. Able to communicate. Has generalized body aches and pain. Scared to move even within the bed. LABORATORY DATA: The patient had x-ray of the shoulder, showed noticed location or fracture. ASSESSMENT: 1. Status post fall. 2. Status post fracture. 3. Status post kyphoplasty. 4. Generalized osteoarthritis. 5. History of hypertension. 6. Hyperlipidemia. 7. Altered mental status, probably secondary to heavy use of narcotics. PLAN: We will continue him on IV fluids. Dr. Reno to evaluate the patient for his bilateral shoulder pain. Continue with nebulizer treatment. He is on Lipitor. He is on DVT prophylaxis, meropenem for right lower lobe pneumonia. Continue him on Mobic. Continue his morphine and we will follow up this patient in a.m. Gio Amanda MD
[2018-10-15] MEDS: Albuterol-Ipratrop 3 mg / 0.5 (3 ml) UD IH SCH ×4 (01:29→20:30)
[2018-10-15] MEDS: Meropenem IV 1 gm in NS 1 GM/50 ML BAG IVPB SCH ×2 (01:58→14:24)
[2018-10-15] MEDS: oxyCODONE 20 mg ER Tab (oxyCONTIN) PO SCH ×2 (07:00→17:15)
--- NOTE | 2018-10-15 07:46 | PN ---
DATE: 10/15/2018 SUBJECTIVE: The patient appears quite comfortable this morning. He is not short of breath at rest. PHYSICAL EXAMINATION: VITAL SIGNS: Temperature is 97.8, pulse 79, respirations 18, blood pressure 135/87. Oxygen saturation on nasal cannula 94% to 95%. HEENT: Normocephalic, atraumatic. No JVD. CARDIOVASCULAR: Positive S1, S2. No S3 gallop. LUNGS: Decreased breath sounds with crackles at the right lower lobe. Much less/very minimal rhonchi. No wheezing. EXTREMITIES: No clubbing, cyanosis or edema. Calves are nontender to palpation. GASTROINTESTINAL: Abdomen is soft, nontender, nondistended. Bowel sounds are positive. SKIN: No acute rash. NEUROLOGIC: Exam limited at the present time. IMPRESSION: 1. Right lower lobe pneumonia. 2. Advanced chronic obstructive pulmonary disease. 3. Possible right hilar adenopathy 4. Acute compression fracture - L2 vertebrae. 5. Severe deconditioning. PLAN: The patient appears very comfortable this morning. He is not short of breath at rest. He does state to feeling better overall. He remains very weak appearing. I did discuss the case with the night nurse at length. The night nurse stated the patient had a good night. On physical exam, there is certainly much less bronchospasm today. In addition, the alveolar arterial gradient is also less. I will continue the current nebulizer treatments and inhaled steroids for now. Inputs by Infectious Disease and Orthopedics are also noted. I did review all of the CT scans done on this patient with Dr. Valderrama at length yesterday. The right mainstem bronchus contour has been abnormal - dating back to the CAT scan of 02/11/2013. The possible right hilar adenopathy is more difficult to quantify/qualify - given the difference in techniques(over the years) and the lack of contrast. Certainly, we can more closely evaluate this area with PET scanning(outpatient) - if clinically indicated. Again, I did discuss the above with the patient multiple times yesterday. Clinical status of the patient does appear improved - compared to the initial presentation. However, given the above, the future status/prognosis for this elderly frail patient remains guarded. I will discuss the above with the attending physician. Luis Antonio Juares MD [facility] # [id number] HAR[facility]
--- NOTE | 2018-10-15 07:56 | RAD ---
Date of service: 10/14/2018 PROCEDURE: Cervical spine HISTORY: s/p fall COMPARISON: TECHNIQUE: Six views FINDINGS: The study is limited by patient positioning. There is multilevel disc degeneration and facet arthropathy. No obvious fracture IMPRESSION: No acute findings
[2018-10-15] MEDS: Budesonide 0.5 mg/2 ml Inhal Susp UD IH SCH ×2 (08:10→20:30)
[2018-10-15 08:14] VITALS: TEMP 97.6
--- NOTE | 2018-10-15 08:27 | RAD ---
Date of service: The 10/14/2018 PROCEDURE: Left Wrist Radiographs. HISTORY: pain COMPARISON: None. TECHNIQUE: 4 views obtained. FINDINGS: BONES: There is diffuse bone demineralization. There is no acute displaced fracture or bone destruction. Bone alignment is normal. JOINTS: There is mild degenerative osteoarthrosis in the radiocarpal joint. Apparent subarticular lucencies in the lunate likely represents subarticular geode/degenerative cystic changes. There calcification of the triangular fibrocartilage. There is moderate degenerative osteoarthrosis in the 1st DETENTION joint SOFT TISSUES: Normal. OTHER FINDINGS: None. IMPRESSION: No acute displaced fracture or dislocation. Moderate degenerative osteoarthrosis in the 1st DETENTION joint and mild degenerative osteoarthrosis in the radiocarpal joint.
--- NOTE | 2018-10-15 08:45 | RAD ---
Date of service: 10/14/2018 PROCEDURE: Right Wrist Radiographs. HISTORY: Pain COMPARISON: None. TECHNIQUE: 4 views obtained. FINDINGS: BONES: There is diffuse bone demineralization. No acute displaced fracture or bone destruction. Bone alignment is there is an old fracture deformity in the styloid process of ulna. JOINTS: Mild degenerative osteoarthrosis in the 1st HALF-WAY joint. The remaining joint spaces are preserved SOFT TISSUES: Normal. OTHER FINDINGS: None. IMPRESSION: No acute displaced fracture or dislocation. Mild degenerative osteoarthrosis in the 1st HALF-WAY joint.
[2018-10-15] MEDS: Metoprolol Succinate 25 mg XL Tab PO SCH (10:40)
[2018-10-15] MEDS: Enoxaparin 30 mg Syringe SC SCH (10:40)
[2018-10-15] MEDS: Levothyroxine 50 MCG TAB PO SCH (10:40)
[2018-10-15] MEDS: POLYETHYLENE GLYCOL 3350 17 GM/Dose PACKET PO SCH (10:40)
[2018-10-15] MEDS: Lidocaine 5% Patch TD SCH (10:40)
[2018-10-15] MEDS: Vancomycin 1gm in NS 250ml 1 GM/250 ML BAG IVPB SCH (10:41)
--- NOTE | 2018-10-15 13:38 | CP.PCM.PN ---
Subjective - Date & Time of Evaluation Date of Evaluation: 10/15/18 Time of Evaluation: 13:35 - Subjective Subjective: Progress note for Dr. Puri X-rays reviewed. No acute fractures or dislocations of both wrists. There is a chronic fracture deformity of the right ulnar styloid. cervical x-rays inadequate. No obvious fx or dislocations. Patient states the the right shoulder is bothering him today. Patient still appears confused. Recommendation is for NSAIDs as needed. Patient can follow up in Dr. Puri's office in 7-10 days for a follow up. Objective - Vital Signs/Intake and Output Vital Signs (last 24 hours): Temp Pulse Resp BP Pulse Ox 97.6 F 79 17 159/105 H 94 L 10/15/18 06:00 10/15/18 06:00 10/15/18 06:00 10/15/18 06:00 10/15/18 06:00 Intake and Output: 10/15/18 10/15/18 06:59 18:59 Intake Total 240 Balance 240 - Medications Medications: Current Medications Albuterol/Ipratropium (Duoneb 3 Mg/0.5 Mg (3 Ml) Ud) 3 ml IH [id number] [facility] Last Admin: 10/15/18 13:08 Dose: 3 ml Albuterol/Ipratropium (Duoneb 3 Mg/0.5 Mg (3 Ml) Ud) 3 ml IH Q2H PRN PRN Reason: Shortness of Breath Aspirin (Ecotrin) 81 mg PO DAILY [facility] Last Admin: 10/15/18 10:40 Dose: 81 mg Atorvastatin Calcium (Lipitor) 10 mg PO HS [facility] Last Admin: 10/14/18 22:14 Dose: 10 mg Budesonide (Pulmicort Respules) 0.5 mg IH [id number] [facility] Last Admin: 10/15/18 08:10 Dose: 0.5 mg Cyproheptadine HCl (Periactin) 4 mg PO DAILY [facility] Last Admin: 10/15/18 10:39 Dose: 4 mg Docusate Sodium (Colace) 100 mg PO BID [facility] Last Admin: 10/15/18 10:40 Dose: 100 mg Enoxaparin Sodium (Lovenox) 30 mg SC DAILY [facility]; Protocol Last Admin: 10/15/18 10:40 Dose: 30 mg Escitalopram Oxalate (Lexapro) 20 mg PO DAILY [facility] Last Admin: 10/15/18 10:40 Dose: 20 mg Gabapentin (Neurontin) 800 mg PO TID [facility]; Protocol Last Admin: 10/15/18 10:40 Dose: 800 mg Sodium Chloride (Sodium Chloride 0.45%) 1,000 mls @ 60 mls/hr IV .[id number] [facility] Last Admin: 10/13/18 18:19 Dose: 60 mls/hr Meropenem (Merrem Iv 1 Gm Premix) 1 gm in 50 mls @ 100 mls/hr IVPB Q8 [facility]; Protocol Stop: 10/20/18 22:46 Last Admin: 10/15/18 01:58 Dose: 100 mls/hr Vancomycin HCl (Vancomycin 1gm) 1 gm in 250 mls @ 167 mls/hr IVPB Q12H [facility]; Protocol Stop: 10/20/18 22:46 Last Admin: 10/15/18 10:41 Dose: 167 mls/hr Levothyroxine Sodium (Synthroid) 50 mcg PO QAM [facility] Last Admin: 10/15/18 10:40 Dose: 50 mcg Lidocaine (Lidoderm) 1 ea TD DAILY [facility] Last Admin: 10/15/18 10:40 Dose: 1 ea Lorazepam (Ativan) 1 mg IVP ONCE PRN; Protocol PRN Reason: Anxiety Last Admin: 10/08/18 20:04 Dose: 1 mg Meloxicam (Mobic) 15 mg PO DAILY [facility] Last Admin: 10/15/18 10:39 Dose: 15 mg Metoprolol Succinate (Toprol Xl) 25 mg PO DAILY [facility] Last Admin: 10/15/18 10:40 Dose: 25 mg Morphine Sulfate (Morphine) 4 mg IVP Q4H PRN PRN Reason: Pain, severe (8-10) Last Admin: 10/13/18 14:38 Dose: 4 mg Ondansetron HCl (Zofran Inj) 4 mg IVP Q6H PRN PRN Reason: Nausea/Vomiting Last Admin: 10/12/18 12:51 Dose: 4 mg Oxycodone HCl (Oxycontin Extended Release Tab) 40 mg PO 0700,1900 [facility] Last Admin: 10/15/18 07:00 Dose: Not Given Polyethylene Glycol (Miralax) 17 gm PO DAILY [facility] Last Admin: 10/15/18 10:40 Dose: 17 gm - Labs Labs: 10/11/18 11:50 10/11/18 11:50 PT 12.8 SECONDS (9.4-12.5) H 10/06/18 12:20 INR 1.15 10/06/18 12:20 APTT 28.4 Seconds (26.9-38.3) 10/06/18 12:20
[2018-10-15 14:46] VITALS: BP 157/90; PULSE 102; RESP 14; O2SAT 96
--- NOTE | 2018-10-15 22:23 | PN ---
DATE: 10/15/2018 SUBJECTIVE: The patient was seen earlier this morning in room 572, bed 1. He is awake, alert and doing better. PHYSICAL EXAMINATION: VITAL SIGNS: Temperature is 97, blood pressure is 150/90, and respiratory rate of 18. HEENT: Unremarkable. NECK: Supple. LUNGS: Decreased breath sounds. HEART: Normal, S1 and S2. ABDOMEN: Soft. LABORATORY EXAMINATION: Reveals the patient's white count of 7.3. Chemistries are noted. Microbiology reveals yeast in the sputum. REVIEW OF ORDERS: Meropenem and vancomycin. Dr. Juares's note is reviewed. ASSESSMENT AND PLAN: This is a 78-year-old male who was seen earlier today who admitted with sepsis, healthcare-associated pneumonia, negative cultures, negative procalcitonin, day #5 of antibiotics. The patient with an L2 fracture status post kyphoplasty, chronic obstructive lung disease, severe degenerative disc disease with vancomycin and cefepime day #5. The patient's nares methicillin-resistant Staphylococcus aureus is positive. We will follow with you. Kermit Silver MD
--- NOTE | 2018-10-16 04:28 | DS ---
HISTORY OF PRESENT ILLNESS: The patient is 78-year-old, who fell at home, had L2 compression fracture, underwent kyphoplasty with Dr. Pito Morales. Post-procedure the patient developed aspiration pneumonia, has been on IV antibiotics and nebulizer treatment, seems to be doing well, being transferred to [place] for subacute rehab. PHYSICAL EXAMINATION: GENERAL: He is awake and alert, able to communicate. VITAL SIGNS: He is afebrile. Pulse 102, respirations 14, blood pressure 157/90. LUNGS: Bilateral fair air flow. No rhonchi or crackle. HEART: S1 and S2 audible. ABDOMEN: Soft and nontender. No rebound. No guarding. NEUROLOGIC: The patient is awake and alert, able to communicate. LABORATORY DATA: Procalcitonin 0.30. ASSESSMENT: 1. Status post fall. 2. L2 compression fracture, status post kyphoplasty. 3. Aspiration pneumonia. 4. Degenerative disc disease. 5. Mild dementia. 6. Chronic lower back pain. 7. Hypertension. PLAN: The patient seems to be clinically stable. His pulse ox is 94%. Blood pressure seems to be stable. His oral intake seems to be fair. He will be transferred to subacute rehab later on today. Gio Amanda MD
== END 2018-10-15 23:06 | DRG 515 ==
LOC: ED 11:27 → ERH 14:45 → 5RSO 16:08
PROVIDERS: ADMIT Internal Medicine Nephrology; ATTEND Internal Medicine
PROC: 0QS03ZZ Reposition Lumbar Vertebra, Percutaneous Approach (ICD-10-PCS; principal; 2018-10-10)
PROC: 0QU03JZ Supplement Lumbar Vertebra with Synthetic Substitute, Percutaneous Approach (ICD-10-PCS; 2018-10-10)
PROC: 3E0F7GC Introduction of Other Therapeutic Substance into Respiratory Tract, Via Natural or Artificial Opening (ICD-10-PCS; 2018-10-11)
DX: S32.028A Other fracture of second lumbar vertebra, initial encounter for closed fracture (principal); A41.9 Sepsis, unspecified organism; J69.0 Pneumonitis due to inhalation of food and vomit; J44.0 Chronic obstructive pulmonary disease with (acute) lower respiratory infection; I10 Essential (primary) hypertension; E03.9 Hypothyroidism, unspecified; M25.551 Pain in right hip; M25.552 Pain in left hip; M41.9 Scoliosis, unspecified; G89.29 Other chronic pain; D64.9 Anemia, unspecified; F41.9 Anxiety disorder, unspecified; G62.9 Polyneuropathy, unspecified; M47.816 Spondylosis without myelopathy or radiculopathy, lumbar region; M81.0 Age-related osteoporosis without current pathological fracture; F03.90 Unspecified dementia, unspecified severity, without behavioral disturbance, psychotic disturbance, mood disturbance, and anxiety; R26.2 Difficulty in walking, not elsewhere classified; K59.00 Constipation, unspecified; E78.00 Pure hypercholesterolemia, unspecified; M15.9 Polyosteoarthritis, unspecified; W18.30XA Fall on same level, unspecified, initial encounter; Y92.009 Unspecified place in unspecified non-institutional (private) residence as the place of occurrence of the external cause; Z79.82 Long term (current) use of aspirin; Z79.890 Hormone replacement therapy; Z79.891 Long term (current) use of opiate analgesic; Z87.891 Personal history of nicotine dependence